=== PATIENT | male | born 1965 | race Caucasian/White ===

== ENCOUNTER 2018-07-13 23:38 | Inpatient (IN) ==
[2018-07-14] MEDS ORDERED: PIPERACILL/TAZOBAC CONSULT ACTIVE PRN ×2 (00:08→05:32)
[2018-07-14] MEDS ORDERED: PIPERACILLIN/TAZOBACTAM 4.5 GM/120 ML BAG IV ONE (00:08)
[2018-07-14] MEDS ORDERED: VANCOMYCIN HCL 2,750 MG in SODIUM CHLORIDE 0.9% 500 ML IV ONE (00:08)
[2018-07-14] MEDS ORDERED: SODIUM CHLORIDE 0.9% 1000ML 1,000 ML IV ONE ×2 (00:08→00:35)
[2018-07-14] MEDS ORDERED: VANCOMYCIN CONSULT ACTIVE PRN ×2 (00:08→05:32)
[2018-07-14 00:32] LABS: Albumin Level 2.6 gm/dl (3.4-5.0); BUN Creatinine Ratio 18.7 (10-20); Calcium 8.5 mg/dl (8.5-10.1); Creatinine Clr Calc Pharmacy 72.5 ml/min; Est GFR (African American) 51.5; Est GFR (Non-African American) 44.4; Potassium 3.7 mmol/L (3.5-5.1)
[2018-07-14 00:35] LABS: Albumin Globulin Ratio 0.6 (0.9-2); Bilirubin,Total 1.5 mg/dl (0.2-1); Globulin 4.1 gm/dl (2.5-4.0); Total Protein 6.7 gm/dl (6.4-8.2)
[2018-07-14 00:38] LABS: INR 1.3 (0.9-1.1); Partial Thromboplastin Time 26.2 Seconds (21.0-31.0); Prothrombin Time 12.8 Seconds (9.0-12.0)
[2018-07-14 00:42] LABS: Hematocrit (blood only) 48.2 % (42-52); Hemoglobin 16.3 g/dL (14.0-18.0); Mean Corpuscular Hgb Conc 33.8 g/dL (32-36); Mean Platelet Volume 11.8 fL (7.4-10.4); Platelet Count 240 K/uL (130-400); RDW Coefficient of Variation 14.2 % (11.5-14.5); RDW Standard Deviation 45.7 fL (36.4-46.3); Red Blood Count 5.48 M/uL (4.7-6.1); White Blood Count 28.89 K/uL (4.8-10.8)
[2018-07-14 00:44] LABS: Basophils # (auto) 0.02 K/uL (0-0.2); Basophils % (auto) 0.1 %; Echinocytes 1+; Immature Granulocytes % (auto) 0.7 %; Lymphocytes # (auto) 0.82 K/uL (1.2-3.4); Lymphocytes % (auto) 2.8 %; Monocytes # (auto) 1.37 K/uL (0.11-0.59); Monocytes % (auto) 4.7 %; Neutrophils # (auto) 26.48 K/uL (1.4-6.5); Neutrophils % (auto) 91.7 %; Polychromasia 1+
--- NOTE | 2018-07-14 01:09 | Emergency Department Note ---
History of Present Illness General Chief complaint: Fall Stated complaint: FALL/LEG IS SWOLLEN History of Present Illness Maximum Pain Intensity: 6 This 53-year-old presents to the ER complaining of left leg pain and swelling Location: Left leg Quality: Throbbing Severity: Moderate Duration: Past week Timing: Started a week ago Context: Patient could not get off the ground and summoned EMS Modifying factors: better with nothing; worse with activity Patient states a few weeks ago he got an abrasion to his knee. Tetanus is current. Patient states since then his leg is gotten progressive more red and swollen. Patient states he has no active medical problems. Patient denies chest pain, dyspnea, fevers, cough, congestion, abdominal pain, back pain, testicular penile pain. No IV drug abuse. Home Medications Home Medications Medication Instructions Recorded Confirmed Type No Known Home Medications 07/14/18 07/14/18 History Allergies Allergy/AdvReac Type Severity Reaction Status Date / Time No Known Allergies Allergy Unverified 07/14/18 02:22 Past Med/Surg History Medical History No acute medical problems Social History Feels Safe at Home: Yes Smoking Status: Never smoker Review of Systems All systems reviewed & are unremarkable except as noted in HPI & below Physical Exam Vital Signs Vital Signs - 24 hr 07/13/18 23:44 07/13/18 23:46 07/13/18 23:59 Temperature 37.1 C Temperature Source Oral Sepsis Recent Fever Within 48 Hours No Sepsis Action Taken by Nursing No Action Required Pulse Rate 110 H 111 H 113 H Pulse Rate [Right Finger] Pulse Rate from SpO2 Sensor 112 H 111 H Pulse Rhythm Regular Pulse Strength Normal Respiratory Rate 29 H 22 22 Respiratory Effort / Characteristics Non-Labored Respiratory Depth Normal Respiratory Pattern Regular Blood Pressure 165/115 H 165/115 H Blood Pressure [Right Arm] Blood Pressure Mean 131 131 Blood Pressure Mean [Right Arm] Blood Pressure Position Lying Pulse Oximetry 98 97 98 Oxygen Delivery Method Room Air 07/14/18 00:00 07/14/18 00:15 07/14/18 00:30 Temperature Temperature Source Sepsis Recent Fever Within 48 Hours Sepsis Action Taken by Nursing Pulse Rate 110 H 113 H 104 H Pulse Rate [Right Finger] Pulse Rate from SpO2 Sensor 116 H 113 H 104 H Pulse Rhythm Pulse Strength Respiratory Rate 23 22 31 H Respiratory Effort / Characteristics Respiratory Depth Respiratory Pattern Blood Pressure Blood Pressure [Right Arm] Blood Pressure Mean Blood Pressure Mean [Right Arm] Blood Pressure Position Pulse Oximetry 97 96 95 Oxygen Delivery Method 07/14/18 00:36 07/14/18 00:37 07/14/18 01:13 Temperature Temperature Source Sepsis Recent Fever Within 48 Hours Sepsis Action Taken by Nursing Pulse Rate 106 H Pulse Rate [Right Finger] 106 H Pulse Rate from SpO2 Sensor 110 H Pulse Rhythm Pulse Strength Respiratory Rate 27 H 34 H Respiratory Effort / Characteristics Respiratory Depth Respiratory Pattern Blood Pressure 177/130 H 135/104 H Blood Pressure [Right Arm] 177/130 H Blood Pressure Mean 145 114 Blood Pressure Mean [Right Arm] 145 Blood Pressure Position Pulse Oximetry 95 97 Oxygen Delivery Method 07/14/18 01:14 07/14/18 01:15 07/14/18 01:49 Temperature Temperature Source Sepsis Recent Fever Within 48 Hours Sepsis Action Taken by Nursing Pulse Rate 101 H Pulse Rate [Right Finger] 107 H Pulse Rate from SpO2 Sensor 108 H 105 H Pulse Rhythm Pulse Strength Respiratory Rate 22 10 L Respiratory Effort / Characteristics Respiratory Depth Respiratory Pattern Blood Pressure 158/108 H Blood Pressure [Right Arm] 135/104 H Blood Pressure Mean 124 Blood Pressure Mean [Right Arm] 114 Blood Pressure Position Pulse Oximetry 98 96 Oxygen Delivery Method 07/14/18 01:51 07/14/18 02:00 07/14/18 02:01 Temperature Temperature Source Sepsis Recent Fever Within 48 Hours Sepsis Action Taken by Nursing Pulse Rate 99 H 106 H 109 H Pulse Rate [Right Finger] Pulse Rate from SpO2 Sensor 102 H 104 H 109 H Pulse Rhythm Pulse Strength Respiratory Rate 14 21 30 H Respiratory Effort / Characteristics Respiratory Depth Respiratory Pattern Blood Pressure 157/125 H 157/144 H Blood Pressure [Right Arm] Blood Pressure Mean 135 148 Blood Pressure Mean [Right Arm] Blood Pressure Position Pulse Oximetry 99 100 95 Oxygen Delivery Method 07/14/18 02:14 Temperature Temperature Source Sepsis Recent Fever Within 48 Hours Sepsis Action Taken by Nursing Pulse Rate Pulse Rate [Right Finger] 105 H Pulse Rate from SpO2 Sensor Pulse Rhythm Pulse Strength Respiratory Rate 22 Respiratory Effort / Characteristics Respiratory Depth Respiratory Pattern Blood Pressure Blood Pressure [Right Arm] 157/144 H Blood Pressure Mean Blood Pressure Mean [Right Arm] 148 Blood Pressure Position Pulse Oximetry 97 Oxygen Delivery Method VITALS: Vitals are noted on the nurse's note and reviewed by myself. Vital signs hypertensive. GENERAL: White male malodorous and unkempt, in no acute distress, nondiaphoretic, well-developed well-nourished. SKIN: Left leg groin and scrotum erythematous and edematous malodorous and concerning for infection. The rest of the skin was without rashes, erythema, edema, or bruising. There is no tenting of the skin. Capillary reflex less than 2 seconds. HEAD: Normocephalic atraumatic. EARS: External auditory canals clear, tympanic membranes pearly álvarez without erythema or effusion bilaterally. EYES: Pupils equal round and reactive to light and accommodation. Conjunctivae without injection, sclerae without icterus. Extraocular movements intact. NOSE: Patent, turbinates without inflammation or discharge. No sinus tenderness. MOUTH: Mucous membranes mildly dry. Pharynx without erythema or exudate. Uvula midline. Airway patent. Tongue does not deviate. NECK: Supple without nuchal rigidity. No lymphadenopathy. No thyromegaly. Cervical spine is nontender. No JVD. HEART: Regular rate and rhythm LUNGS: Clear to auscultation bilaterally without wheezes, rales or rhonchi. No retractions or accessory muscle use. ABDOMEN: Positive bowel sounds x 4. Normal tympanic percussion. Soft, protuberant, obese, nontender, without masses or organomegaly. De La Vega sign negative. No guarding or rebound tenderness. No CVA tenderness exam: Scrotum and groin erythematous and edematous, no perineum infection. Inguinal lymph nodes enlarged. Flat Sorter Processor present. MUSCULOSKELETAL: No muscle atrophy noted. Left leg erythematous and edematous concerning for infection for the entire leg. Pedal pulses +2 equal and present bilaterally. Sensation is intact. NEURO: Patient was alert and oriented to person place and time. Normal sensation to light and sharp touch. No focal neurological deficits. Course Administered Medications Ioversol (Optiray 320 100ml) 125 ml IV ONCE PRN PRN Reason: Interaction Checking Stop: 07/18/18 01:28 Last Admin: 07/14/18 01:30 Dose: 120 ml Documented by: [id number] Discontinued Medications Piperacillin Sod/Tazobactam Sod (Zosyn) 4.5 gm in 120 mls @ 240 mls/hr IV NOW ONE Stop: 07/14/18 00:37 Last Infusion: 07/14/18 01:15 Dose: 0 mls/hr Documented by: [id number] Admin: 07/14/18 00:17 Dose: 240 mls/hr Documented by: [id number] Sodium Chloride (Nss 1000ml) 1,000 mls @ 999 mls/hr IV .Q1H1M ONE Stop: 07/14/18 01:08 Last Infusion: 07/14/18 01:45 Dose: 0 mls/hr Documented by: [id number] Admin: 07/14/18 00:20 Dose: 999 mls/hr Documented by: [id number] Vancomycin HCl 2,750 mg/ (Sodium Chloride) 555 mls @ 200 mls/hr IV NOW ONE Stop: 07/14/18 02:54 Last Admin: 07/14/18 00:35 Dose: 200 mls/hr Documented by: [id number] Sodium Chloride (Nss 1000ml) 1,000 mls @ 999 mls/hr IV .Q1H1M ONE Stop: 07/14/18 01:35 Last Admin: 07/14/18 01:07 Dose: 999 mls/hr Documented by: [id number] Clindamycin Phosphate 900 mg/ (Dextrose) 56 mls @ 100 mls/hr IV NOW ONE Stop: 07/14/18 02:27 Last Admin: 07/14/18 02:13 Dose: 100 mls/hr Documented by: [id number] Medical Decision Making Medical Records Attestation: I reviewed the patient's medical records. Home Medications Current Medication List: was personally reviewed by me Laboratory Data Result diagrams: 07/13/18 23:53 07/13/18 23:53 Lab Results 07/13/18 07/13/18 07/13/18 Range/Units 23:53 23:53 23:53 WBC 28.89 H (4.8-10.8) K/uL RBC 5.48 (4.7-6.1) M/uL Hgb 16.3 (14.0-18.0) g/dL Hct 48.2 (42-52) % MCV 88.0 (80-100) fL MCH 29.7 (25-34) pg MCHC 33.8 (32-36) g/dL RDW Std Deviation 45.7 (36.4-46.3) fL RDW Coeff of Junior 14.2 (11.5-14.5) % Plt Count 240 (130-400) K/uL MPV 11.8 H (7.4-10.4) fL Immature Gran % (Auto) 0.7 % Neut % (Auto) 91.7 % Lymph % (Auto) 2.8 % Briscoe % (Auto) 4.7 % Eos % (Auto) 0.0 % Baso % (Auto) 0.1 % Immature Gran # (Auto) 0.20 H (0.00-0.02) K/uL Neut # (Auto) 26.48 H (1.4-6.5) K/uL Lymph # (Auto) 0.82 L (1.2-3.4) K/uL Briscoe # (Auto) 1.37 H (0.11-0.59) K/uL Eos # (Auto) 0.00 (0-0.5) K/uL Baso # (Auto) 0.02 (0-0.2) K/uL Polychromasia 1+ Echinocytes 1+ PT 12.8 H (9.0-12.0) Seconds INR 1.3 H (0.9-1.1) APTT 26.2 (21.0-31.0) Seconds PTT Ratio 1.0 Sodium 135 L (136-145) mmol/L Potassium 3.7 (3.5-5.1) mmol/L Chloride 99 (98-107) mmol/L Carbon Dioxide 24 (21-32) mmol/L Anion Gap 12.0 H (3-11) BUN 32 H (7-18) mg/dl Creatinine 1.71 H (0.6-1.4) mg/dl Est Cr Clr Drug Dosing 72.5 ml/min Est GFR ( Amer) 51.5 Est GFR (Non-Af Amer) 44.4 BUN/Creatinine Ratio 18.7 (10-20) Glucose 177 H (70-99) mg/dl POC Glucose (70-99) Lactate (0.4-2.0) mmol/L Calcium 8.5 (8.5-10.1) mg/dl Total Bilirubin 1.5 H (0.2-1) mg/dl AST 76 H (15-37) U/L ALT 112 H (12-78) U/L Alkaline Phosphatase 88 (45-117) U/L Total Creatine Kinase 276 (39-308) U/L Troponin I 0.124 H* (0-0.045) ng/ml Total Protein 6.7 (6.4-8.2) gm/dl Albumin 2.6 L (3.4-5.0) gm/dl Globulin 4.1 H (2.5-4.0) gm/dl Albumin/Globulin Ratio 0.6 L (0.9-2) 07/13/18 07/14/18 Range/Units 23:53 00:26 WBC (4.8-10.8) K/uL RBC (4.7-6.1) M/uL Hgb (14.0-18.0) g/dL Hct (42-52) % MCV (80-100) fL MCH (25-34) pg MCHC (32-36) g/dL RDW Std Deviation (36.4-46.3) fL RDW Coeff of Junior (11.5-14.5) % Plt Count (130-400) K/uL MPV (7.4-10.4) fL Immature Gran % (Auto) % Neut % (Auto) % Lymph % (Auto) % Briscoe % (Auto) % Eos % (Auto) % Baso % (Auto) % Immature Gran # (Auto) (0.00-0.02) K/uL Neut # (Auto) (1.4-6.5) K/uL Lymph # (Auto) (1.2-3.4) K/uL Briscoe # (Auto) (0.11-0.59) K/uL Eos # (Auto) (0-0.5) K/uL Baso # (Auto) (0-0.2) K/uL Polychromasia Echinocytes PT (9.0-12.0) Seconds INR (0.9-1.1) APTT (21.0-31.0) Seconds PTT Ratio Sodium (136-145) mmol/L Potassium (3.5-5.1) mmol/L Chloride (98-107) mmol/L Carbon Dioxide (21-32) mmol/L Anion Gap (3-11) BUN (7-18) mg/dl Creatinine (0.6-1.4) mg/dl Est Cr Clr Drug Dosing ml/min Est GFR ( Amer) Est GFR (Non-Af Amer) BUN/Creatinine Ratio (10-20) Glucose (70-99) mg/dl POC Glucose 153 H (70-99) Lactate 4.4 H* (0.4-2.0) mmol/L Calcium (8.5-10.1) mg/dl Total Bilirubin (0.2-1) mg/dl AST (15-37) U/L ALT (12-78) U/L Alkaline Phosphatase (45-117) U/L Total Creatine Kinase (39-308) U/L Troponin I (0-0.045) ng/ml Total Protein (6.4-8.2) gm/dl Albumin (3.4-5.0) gm/dl Globulin (2.5-4.0) gm/dl Albumin/Globulin Ratio (0.9-2) Imaging Data Attestation: I personally reviewed and interpreted this imaging study as follows: MDM Narrative Prior records/ancillary studies reviewed. Triage Nursing notes reviewed. Additional history obtained from EMS. The patient's history was concerning for leg pain and swelling. Differential diagnosis: Etiologies such as sepsis, UTI, pneumonia, metabolic, electrolyte abnormalities, cardiac sources, intracerebral event, toxicologic, neurologic, as well as others were entertained. Physical examination: As above. Pertinent findings were left leg infection. Vital signs reviewed and revealed tachycardic and hypertensive. ER treatment provided: IV fluid resuscitation with Normal saline solution, 2000 mL bolus. Blood and urine cultures Antibiotics: Zosyn, vancomycin On reassessment the patient vital signs improved. Diagnostics interpretation by me: ECG: Normal sinus, poor baseline, no acute ST-T wave changes. rate 105 Impression sinus tachycardia interpreted by myself I think arrhythmia is unlikely. EKG shows normal sinus rhythm with no interval abnormalities such as QT prolongation or WPW. There are no findings to suggest Brugada syndrome. Cardiac monitoring in the emergency department reveals no tachycardic or bradycardic dysrhythmia. Hypertrophic cardiomyopathy was considered but there are no clear historical elements pointing toward this. EKG is not suggestive. The QRS voltage is not extremely large and there are no suggestive Q waves. The labs revealed leukocytosis on CBC. Chemistry panel revealed elevated creatinine. LFTs revealed. Cardiac enzymes were elevated. Serum Lactate measurement was 4.4. Blood and urine cultures are pending. Imaging studies: Chest xray revealed no acute consolidation, pneumothorax or free air per my interpretation. CT PELVIS: Fluid along the scrotum and perineum. Correlate clinically for inflammatory/infectious process. Small foci of air at the tip of the penis, unclear significance. Gas-forming organism not excluded. Subcutaneous stranding/edema, more prominent on the left pelvis/lower extremity. Prominent left inguinal lymph nodes. Fluid in the small and large bowel, can be seen with enteritis or diarrheal disease. Scattered colonic diverticula. Small nodular density at the superior aspect of the bladder. Small fat-containing bilateral inguinal hernias. Radiologist: Vira Medrano M.D. Ultrasound negative for DVT. Consultation: A consultation was placed with the hospitalist. The case was discussed and diagnostics were reviewed. The patient was evaluated in the ER for further treatment. Exam and history seem consistent with sepsis most likely from the leg cellulitis and groin cellulitis. Troponin was elevated. High white count. Patient start on broad-spectrum antibiotics. Blood cultures ordered. Patient is agreeable treatment plan of admission. Impression & Plan Sepsis, Cellulitis of groin, Cellulitis of left leg Discharge Plan Visit Data Chief Complaint: Fall Stated Complaint: FALL/LEG IS SWOLLEN Other Complaint: Leg Injury/Pain ED Provider: Haider Wolff ED Midlevel Provider: Subha Fermin Discharge Problem: Sepsis, Cellulitis of groin, Cellulitis of left leg Patient Disposition: Being Evaluated by Hospitalist Condition: Fair Forms Stand Alone Forms: Hylete Prescriptions Prescriptions: No Action No Known Home Medications RF: 0 Referrals Referrals: PCP,NO [Primary Care Provider] - Discharge Problem: Sepsis Qualifiers: Sepsis type: sepsis due to unspecified organism Qualified Code(s): A41.9 - Sepsis, unspecified organism
[2018-07-14] MEDS ORDERED: IOVERSOL 100ml IV PRN (01:29)
[2018-07-14] MEDS ORDERED: CLINDAMYCIN 900 MG in DEXTROSE 5% 50 ML IV ONE (01:54)
[2018-07-14 02:09] LABS: Troponin I 0.124 ng/ml (0-0.045)
--- NOTE | 2018-07-14 03:50 | History & Physical Report ---
Date of Service July 14, 2018 Assessment & Plan (1) Cellulitis of groin: 53 y/o M who denies any known medical history although he admittedly has not visited an MDs office in quite some time. He presents with erythema and pain extending from his lower abdomen, through his groin BL, genitals and down his L leg. He states that this began as "jock itch" and he was applying cream to it at home. He could not confirm fevers. Initial evaluation in the ER demonstrated an extensive and concerning cellulitis of the aforementioned area. A CT of the pelvis revealed stranding and fluid along the scrotum and perineum consistent with cellulitis, and a focus of air at the tip of the penis of u nclear significance. Labs are notable for leukocytosis, lactic acidosis, elevated LFTs, hyperglycemia and VAUGHN. 1) Cellulitis of groin and L leg - no clear evidence of Fornier's or necrotizing fasciitis per radiology read. We did have urology and general surgery review this as well. The large involved area and pt's labs are of concern. He should be carefully monitored for any worsening or evidence of severe sepsis. Repeat imaging or transfer to a tertiary center should be considered if deterioration is apparent. The pt is placed on Vanc and Zosyn. IVF provided and a repeat lactic is pending. evaluation by surgery and/or urology to follow. 2) VAUGHN - IVF provided - repeat BMP pending 3) Hyperglycemia - A1C pending 4) LFT elevation - unclear significance - will repeat AM - consider additional workup if trending upward Full code - Heparin prophylaxis Total time for this admit including review of labs, meds, imaging, records - discussion with pt and ER attending - 44 min Present on Admission?: Yes History of Present Illness Chief Complaint: groin, L leg cellulitis Primary Care Provider: NO PCP 53 y/o M who denies any known medical history although he admittedly has not visited an MDs office in quite some time. He presents with erythema and pain extending from his lower abdomen, through his groin BL, genitals and down his L leg. He states that this began as "jock itch" and he was applying cream to it at home. He could not confirm fevers. Initial evaluation in the ER demonstrated an extensive and concerning cellulitis of the aforementioned area. A CT of the pelvis revealed stranding and fluid along the scrotum and perineum consistent with cellulitis, and a focus of air at the tip of the penis of unclear significance. Labs are notable for leukocytosis, lactic acidosis, elevated LFTs, hyperglycemia and VAUGHN. PMH: Denies any known medical or surgical history Social: Does not drink or smoke. Employed at [employer] Family: States his mother is in a [place] [facility] because she frequently loses her balance. No significant family history otherwise. Allergies Allergy/AdvReac Type Severity Reaction Status Date / Time No Known Allergies Allergy Unverified 07/14/18 02:22 Home Medications Home Medications Medication Instructions Recorded Confirmed Type No Known Home Medications 07/14/18 07/14/18 History Past Med/Surg History Medical History No acute medical problems Social History Feels Safe at Home: Yes Smoking Status: Never smoker Review of Systems Review of Systems: Gen: Denies fevers, night sweats, rigors, fatigue, malaise, weight loss/gain ENT: Denies congestion, throat pain, hearing loss Eyes: Denies acute visual changes CV: Denies CP, palpitations Pulmonary: Denies SOB, cough, wheezing GI: Denies N/V, diarrhea, constipation Neuro: Denies acute or unilateral weakness, acute gait impairment, headache or acute visual changes Musculoskeletal: Denies joint pain, inflammation Endocrine: Denies polydipsia, polyuria Skin: Extensive erythema over groin, L leg as above Physical Exam Physical Exam: General: Obese, unkempt, middle-aged male, AAO x 3, no distress ENT: No erythema or exudates, no thrush Eyes: JUAN, EOMI Head and neck: Normocephalic, atraumatic, No JVD, neck is supple. Chest/heart: Nontender, S1,2, RRR, no murmurs, no gallops Lungs: CTAB, no wheezing or crackles Abdomen: Nontender, nondistended, BS+ Neuro: AAO x 3, speech is clear, no unilateral weakness or loss of sensation, coordination intact Musculoskeletal: No muscle tenderness, FROM Skin: Cellulitis over L leg, groin BL, lower abdomen. Scab over distal lat L leg Extremities: No clubbing, cyanosis, edema Results & Data Vital Signs (Past 12 Hours) Vital Signs Temp Pulse Pulse Resp BP BP Pulse Ox 07/14/18 02:40 104 H 18 95 07/14/18 02:14 105 H 22 157/144 H 97 07/14/18 02:01 109 H 30 H 157/144 H 95 07/14/18 02:00 106 H 21 100 07/14/18 01:51 99 H 14 157/125 H 99 07/14/18 01:49 101 H 10 L 07/14/18 01:15 158/108 H 96 07/14/18 01:14 107 H 22 135/104 H 98 07/14/18 01:13 135/104 H 97 07/14/18 00:37 106 H 34 H 177/130 H 07/14/18 00:36 106 H 27 H 177/130 H 95 07/14/18 00:30 104 H 31 H 95 07/14/18 00:15 113 H 22 96 07/14/18 00:00 110 H 23 97 07/13/18 23:59 98.8 F 113 H 22 165/115 H 98 07/13/18 23:46 111 H 22 97 07/13/18 23:44 110 H 29 H 165/115 H 98
--- NOTE | 2018-07-14 05:04 | Emergency Department Note ---
ED Visit Note Physician Evaluation Note: I have personally evaluated and examined this patient. I agree with assessment and plan of Kimmy Fermin PA-C. Sepsis with left leg and groin/scrotal cellulitis. Lactic acid and WBC quite elevated. BP stable without hypotension. Urology on board and gen surg aware of patient. Breathing comfortably and t olerating fluid resus here. Reviewed with hospitalist and discussed ICU though they feel comfortable with patient going tele for now. Haider Wolff MD : Sepsis Qualifiers: Sepsis type: sepsis due to unspecified organism Qualified Code(s): A41.9 - Sepsis, unspecified organism
[2018-07-14] MEDS ORDERED: ZOLPIDEM TARTRATE 5 MG TAB PO PRN (05:32)
[2018-07-14] MEDS ORDERED: ALUMINUM/MAGNESIUM SUSP 30 ML UDC PO PRN (05:32)
[2018-07-14] MEDS ORDERED: ONDANSETRON INJ 2 MG/ML 2 ML VIAL IV PRN (05:32)
[2018-07-14] MEDS ORDERED: MAGNESIUM HYDROXIDE SUSP 30 ML UDC PO PRN (05:32)
[2018-07-14] MEDS ORDERED: POLYETHYLENE (MIRALAX) 17 GM PACK PO PRN (05:32)
--- NOTE | 2018-07-14 06:12 | XRay Report ---
XR chest 1V portable CLINICAL HISTORY: Sepsis dyspnea COMPARISON STUDY: 07/13/2018 FINDINGS: Stable cardiomegaly. Lungs are considered clear. Diaphragms are smooth. IMPRESSION: Stable cardiomegaly. Otherwise negative study. The above report was generated using voice recognition software. It may contain grammatical, syntax or spelling errors. Electronically signed by: Gabriel Florez M.D. 07/14/2018 6:09 AM
--- NOTE | 2018-07-14 06:36 | Ultrasound Report ---
US venous doppler LE LT HISTORY: 53 years-old Male pain/swelling acute pain and swelling of the left lower extremity COMPARISON: CT of the left lower leg of same day TECHNIQUE: Multiple real-time sonographic images of the left lower extremity deep venous structures w ere obtained assessing grayscale appearance, color and spectral flow FINDINGS: Moderate subcutaneous edema is noted. There is normal flow, compressibility, phasicity and augmentati on of the left lower extremity deep venous structures. IMPRESSION: No sonographic evidence of deep venous thrombosis. The above report was generated using voice recognition software. It may contain grammatical, syntax o r spelling errors. Electronically signed by: Raimundo Appiah M.D. 07/14/2018 6:35 AM
--- NOTE | 2018-07-14 06:53 | CT Scan Report ---
CT lower leg LT wo con HISTORY: 53 years-old Male infx, ? abscess acute pain and swelling of the left lower leg COMPARISON: Duplex venous Doppler study of same day TECHNIQUE: Multiple axial CT images of the left lower leg were obtained without the use of IV contras t. Coronal and sagittal reformatted images were obtained from the axial data set and were submitted f or review. A dose lowering technique was used consistent with the principals of ALARA. FINDINGS: IV contrast noted within the distal ureters and urinary bladder. No acute process of the imaged intra pelvic structures. Mildly enlarged left inguinal lymph nodes are seen measuring up to 2.1 x 1.7 cm. T here is diffuse body wall edema with moderate to extensive diffuse subcutaneous edema of the bilatera l lower extremities with areas of associated skin thickening. No drainable fluid collection or subcut aneous emphysema. No deep tissue air. No intramuscular collections identified. Small bilateral knee j oint effusions. Study is not tailored to assess the intrinsic ligaments and tendons. 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 There is no acute fracture or dislocation norma ntified. Suggestion of a healed remote fracture deformity about the fifth metatarsal. Degenerative ch anges are noted about the bilateral feet and ankles. IMPRESSION: 1. No acute fracture or dislocation. 2. Moderate to extensive diffuse subcutaneous edema of the bilateral lower extremities with associate d diffuse body wall edema of the pelvis. No drainable fluid collection. Differential considerations w ould include fluid overload/lymphedema, venous stasis or cellulitis changes. Correlate clinically. 3. No drainable fluid collection. 4. Left inguinal adenopathy, possibly reactive. 5. Small bilateral knee joint effusions. The above report was generated using voice recognition software. It may contain grammatical, syntax o r spelling errors. Electronically signed by: Raimundo Appiah M.D. 07/14/2018 6:52 AM
--- NOTE | 2018-07-14 07:03 | CT Scan Report ---
CT pelvis w/IV con only HISTORY: 53 years-old Male groin infx patient presents with acute soft tissue infection about the le ft inguinal distribution. COMPARISON: CT left lower leg of same day TECHNIQUE: Multiple axial CT images of the pelvis were obtained following the intravenous administrat ion of 120 mL Optiray 320 IV contrast. A dose lowering technique was used consistent with the princip als of CRAOLYN. FINDINGS: There is mild colonic diverticulosis without acute diverticulitis. Scattered fluid-filled loops of no ndilated small bowel throughout the pelvis are noted which may be physiologic. The appendix appears n ormal. Aorta and iliac vessels appear unremarkable. There is a 1.4 cm outpouching about the anterior bladder near the median umbilical ligament which may reflect a small diverticulum or urachal remnant. Prostate is unremarkable. Tiny fat filled inguinal hernias are noted. Enlarged left inguinal lymph nodes are seen measuring up to 2.3 x 1.7 cm. There is moderate subcutane ous edema about the upper thighs bilaterally, left greater than right. Mild generalized body wall faye ma about the imaged pelvis. There is no deep tissue air, subcutaneous emphysema or drainable fluid co llection identified. Focus of air at the tip of the penis incidentally noted. Bony structures demonstrate no acute fracture or dislocation. Mild degenerative changes about the elke ateral femoral acetabular joints. Facet arthrosis and spondylitic spurring of the imaged lumbar spine . Moderate to severe intervertebral disc space narrowing at L5-S1. IMPRESSION: 1. No acute intrapelvic abnormality identified. 2. Mild body wall edema with moderate subcutaneous edema about the upper thighs bilaterally, left gre ater than right. No associated drainable fluid collection. 3. Mild left inguinal adenopathy, possibly reactive. 4. Mild colonic diverticulosis without acute diverticulitis. The above report was generated using voice recognition software. It may contain grammatical, syntax o r spelling errors. Electronically signed by: Raimundo Appiah M.D. 07/14/2018 7:02 AM
[2018-07-14] MEDS ORDERED: PERFLUTREN LIPID MICROSPHERE (DEFINITY) IV ONE (07:52)
--- NOTE | 2018-07-14 08:03 | Pharmacy Report ---
Pharmacy Abx Initial Consult - Date of Service July 14, 2018 - Pharmacy Dosing Scope Date of Consult: 07/14/18 Consultation requested by: Dr. Reese Pharmacy is consulted to initiate Vancomycin and Zosyn IV dosing therapy, order appropriate labs and adjust drug dose/frequency. - Subjective The patient is a 53 year old M admitted on 07/14/18 03:27. - Objective Height: 6 ft 2 in Weight: 145 kg Vital Signs (Past 12hrs): Vital Signs Temp Pulse Pulse Resp BP BP Pulse Ox 07/14/18 05:35 36.5 C 109 H 24 150/99 H 95 07/14/18 04:42 36.5 C 109 H 24 156/99 H 96 07/14/18 04:23 100 H 20 165/109 H 94 07/14/18 04:05 100 H 16 165/110 H 95 07/14/18 02:40 104 H 18 95 07/14/18 02:14 105 H 22 157/144 H 97 07/14/18 02:01 109 H 30 H 157/144 H 95 07/14/18 02:00 106 H 21 100 07/14/18 01:51 99 H 14 157/125 H 99 07/14/18 01:49 101 H 10 L 07/14/18 01:15 158/108 H 96 07/14/18 01:14 107 H 22 135/104 H 98 07/14/18 01:13 135/104 H 97 07/14/18 00:37 106 H 34 H 177/130 H 07/14/18 00:36 106 H 27 H 177/130 H 95 07/14/18 00:30 104 H 31 H 95 07/14/18 00:15 113 H 22 96 07/14/18 00:00 110 H 23 97 07/13/18 23:59 37.1 C 113 H 22 165/115 H 98 07/13/18 23:46 111 H 22 97 07/13/18 23:44 110 H 29 H 165/115 H 98 Lab Results (24hrs): Laboratory Tests (24 Hours) 07/13/18 07/13/18 23:53 23:53 WBC 28.89 H Neut # (Auto) 26.48 H Creatinine 1.71 H Est Cr Clr Drug Dosing 72.5 Total Creatine Kinase 276 Micro Results: 07/14/18 00:12 Blood Culture - Pending Blood 07/13/18 23:53 Blood Culture - Pending Blood - Risk Factors for Resistance * No risk factors noted - Assessment & Plan Assessment 53 year old M receiving vancomycin and Zosyn for empiric treatment of cellulitis of left lower extremity and groin. Plan Vancomycin IV * Estimated PK Parameters: Vd 0.6 L/kg, Gerson 0.06 hr-1, t1/2 12 hr * Loading dose: 2750 mg (19.7 mg/kg) * Maintenance dose: 1750 mg IV (12 mg/kg) every 14 hours * Will target trough of 15-20 for this patient * Cellulitis with elevated lactate (4.4 -> 2.9) and leukocytosis (29) * Trough/Random level ordered for 07/16/18 before the 5th dose * A less than traditional dose has been selected due to likelihood of drug accumulation in obese patient * Will reassess renal function with follow-up labs today 07/14 and adjust dose as necessary Piperacillin/tazobactam * 4.5 g bolus administered over 30 minutes, then 4.5 g IV extended infusion every 8 hours for CrCl greater than 20 mL/min * Aggressive dosing selected due BMI 35 or more. Blood cultures x 2 pending. Broad spectrum antibiotic therapy appropriate at this time. Pharmacy will continue to follow and will adjust dose/frequency as necessary. Thank you.
[2018-07-14] MEDS: HEPARIN SOD 5,000 UNIT/0.5 ML VIAL SQ SCH ×3 (08:24→20:58)
[2018-07-14] MEDS: LACTATED RINGER'S 1,000 ML IV SCH ×2 (08:24→19:10)
[2018-07-14] MEDS: PIPERACILLIN/TAZOBACTAM 4.5 GM in DEXTROSE 5% 100 ML IV SCH ×3 (08:24→23:39)
[2018-07-14] MEDS: NYSTATIN POWDER 15GM BTL EXT SCH ×2 (08:29→20:58)
[2018-07-14 10:19] LABS: Albumin Level 2.4 gm/dl (3.4-5.0); BUN Creatinine Ratio 18.7 (10-20); Bilirubin Direct 0.6 mg/dl (0-0.2); Calcium 8.6 mg/dl (8.5-10.1); Est GFR (African American) 60.8; Est GFR (Non-African American) 52.5; Magnesium 2.1 mg/dl (1.8-2.4); Potassium 3.4 mmol/L (3.5-5.1)
[2018-07-14 10:26] LABS: Bilirubin,Total 1.3 mg/dl (0.2-1); Total Protein 6.1 gm/dl (6.4-8.2); Troponin I 0.134 ng/ml (0-0.045)
[2018-07-14 10:34] LABS: Basophils # (auto) 0.03 K/uL (0-0.2); Basophils % (auto) 0.1 %; Echinocytes 1+; Giant Platelets 1+; Hematocrit (blood only) 46.2 % (42-52); Hemoglobin 15.8 g/dL (14.0-18.0); Immature Granulocytes # (auto) 0.82 K/uL (0.00-0.02); Immature Granulocytes % (auto) 3.3 %; Lymphocytes # (auto) 0.47 K/uL (1.2-3.4); Lymphocytes % (auto) 1.9 %; Mean Corpuscular Hgb Conc 34.2 g/dL (32-36); Mean Corpuscular Volume 86.5 fL (80-100); Mean Platelet Volume 11.5 fL (7.4-10.4); Monocytes # (auto) 1.69 K/uL (0.11-0.59); Monocytes % (auto) 6.7 %; Neutrophils # (auto) 22.15 K/uL (1.4-6.5); Platelet Count 225 K/uL (130-400); Platelet Estimate Normal (Normal); RDW Coefficient of Variation 14.3 % (11.5-14.5); RDW Standard Deviation 44.8 fL (36.4-46.3); Red Blood Count 5.34 M/uL (4.7-6.1); White Blood Count 25.16 K/uL (4.8-10.8)
[2018-07-14] MEDS ORDERED: POTASSIUM CHLORIDE / WTR 10 MEQ/100 ML PLCT IV SCH (10:45)
[2018-07-14 11:01] LABS: Estimated Average Glucose 169 mg/dl; Hemoglobin A1C 7.5 % (4.5-5.6)
--- NOTE | 2018-07-14 11:34 | Cardiology Consultation ---
Date of Consultation July 14, 2018 Assessment & Plan (1) Cardiomyopathy: Due to an elevated troponin the patient did undergo echocardiography this morning which demonstrated severely reduced LV systolic function. There were not regional wall motion abnormalities but rather global hypokinesis. This is more suggestive of a nonischemic etiology. In his demographic coronary artery disease would still be the most likely cause of his LV dysfunction, but given the global nature of the hypokinesis in the absence of angina with activity I think this is less likely. He appears to be well compensated. He was lying flat for my examination, his lungs were clear and he has not had a history of orthopnea. Chest x-ray obtained at the time of admission also did not demonstrate evidence of pulmonary vascular congestion. The chronicity of this dysfunction is unclear. I suspect this is longstanding in nature. He does not appear to have an history of alcohol abuse. He does have a history of hypertension. This could be related to an infiltrative process such as sarcoidosis or possibly amyloid, although these things are less common. He does not appear to have a family history of heart disease which makes it hereditary form of cardiomyopathy less likely. It is very possible that this represents an idiopathic cardiomyopathy. In the immediate term we will start carvedilol. He is already on Jaya inhibition as an outpatient. He is not appear to require diuretic currently and in fact may be slightly dehydrated. His main issue at this time is his lower extremity and groin cellulitis. He likely has an element of sepsis given his leukocytosis and history of chills. We will need to monitor his hemodynamics closely. We will need to be careful administering significant amounts of volume given his now obvious cardiomyopathy. Present on Admission?: Yes (2) Elevated troponin: The initial result was only mildly elevated. I do not believe this is related to renal insufficiency but more likely the cardiomyopathy now identified. I doubt that he had a recent acute coronary syndrome. I do not believe he is suffering from an acute coronary syndrome currently. At some point he will need evaluation of his coronary disease given the LV dysfunction. However, I think this can be deferred until his clinical condition with respect to his cellulitis improves. Present on Admission?: Yes (3) Polymorphic ventricular tachycardia: He appears to have had an episode of polymorphic ventricular tachycardia this morning. He was not symptomatic but was lying in bed. He does not give a good history for frequent episodes of arrhythmia. There is some debate in the medical record about the event precipitating his evaluation, but he was very adamant that he did not fall or suffer loss of consciousness. We will measure another QTC on a repeat EKG, but the initial EKGs demonstrated normal intervals. His magnesium was normal at the time of admission but I think supplemental magnesium will be helpful. We will start him on a beta-elsa. We will need to avoid drugs which are likely to precipitate VT or prolongation of the QT interval. None of the current medicines appear to be a concern in this respect. This episode alone does not represent an indication for an ICD. Present on Admission?: No History of Present Illness Reason for Consultation: Elevated troponin Requesting Physician: Orin Attending Physician: Phil Knox, History of Present Illness The patient is a 53-year-old gentleman without a known history of cardiac disease presented to [facility] with symptoms jock itch". It seems he has developed a rash in the groin area and has been using topical antifungal powder. However, the rash has been progressive in nature and now involves the left leg as well. He has also had some swelling in the left foot. Patient attempted to get out of bed yesterday but due to the swelling in the left leg he reported rolling out of bed and falling onto the floor. EMS was notified of the patient was brought to [facility] for evaluation. Patient stated that he did not have dizziness, lightheadedness or any loss of consciousness during this episode. In the emergency room cardiac biomarkers were noted to be elevated. Unclear what prompted the evaluation of his cardiac biomarkers, but this also led to an echocardiogram this morning which demonstrated reduced LV systolic function. Patient states that his activity is limited. 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 However, he does have an element of dyspnea with some activity. He reports occasional dizziness but no presyncopal symptoms. He cannot recall any episodes of actual syncope. He did not endorse symptoms of chest discomfort either at rest or with activity. He did not report frequent palpitations. He did not report symptoms of orthopnea or paroxysmal nocturnal dyspnea. 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 He did have subjective chills prior to admission. Physical Exam Physical Exam: The patient is alert and oriented. Mood and affect appeared normal. He answered all questions appropriately. HEENT: Pupils are equal and reactive to light and accommodation. Extraocular movements are intact. The sclerae are anicteric. Dry mucous membranes Neuro: Cranial nerves intact Neck: Patient's neck is supple. He has palpable carotid pulses bilaterally without bruits on auscultation. There is no evidence of jugular venous distention. The thyroid is not enlarged. Lungs: Clear to auscultation bilaterally. He has good air movement without use of accessory muscles. No rales wheezes or rhonchi. Cardiac: Heart demonstrates a rhythm. Normal S1 and S2. No murmurs on examination. Pulses: The patient has palpable radial pulses bilaterally that are equal in intensity Extremities: There was no evidence of hypoperfusion. There is no cyanosis or clubbing of the hands. The groin and left lower extremity has a erythematous rash. There is swelling in the groin and the left lower extremity. Skin: I did not appreciate any rashes elsewhere. Results & Data Vital Signs (Past 12 Hours) Vital Signs Temp Pulse Pulse Resp BP BP Pulse Ox 07/14/18 08:15 36.6 C 104 H 22 111/79 98 07/14/18 05:35 36.5 C 109 H 24 150/99 H 95 07/14/18 04:42 36.5 C 109 H 24 156/99 H 96 07/14/18 04:23 100 H 20 165/109 H 94 07/14/18 04:05 100 H 16 165/110 H 95 07/14/18 02:40 104 H 18 95 04/24/19 02:14 105 H 22 157/144 H 97 07/14/18 02:01 109 H 30 H 157/144 H 95 07/14/18 02:00 106 H 21 100 07/14/18 01:51 99 H 14 157/125 H 99 07/14/18 01:49 101 H 10 L 07/14/18 01:15 158/108 H 96 07/14/18 01:14 107 H 22 135/104 H 98 07/14/18 01:13 135/104 H 97 07/14/18 00:37 106 H 34 H 177/130 H 07/14/18 00:36 106 H 27 H 177/130 H 95 07/14/18 00:30 104 H 31 H 95 07/14/18 00:15 113 H 22 96 07/14/18 00:00 110 H 23 97 07/13/18 23:59 37.1 C 113 H 22 165/115 H 98 07/13/18 23:46 111 H 22 97 07/13/18 23:44 110 H 29 H 165/115 H 98 Laboratory Results Abnormal Lab Results 07/13/18 07/13/18 07/13/18 23:53 23:53 23:53 WBC 28.89 H RBC 5.48 Hgb 16.3 Hct 48.2 MCV 88.0 MCH 29.7 MCHC 33.8 RDW Std Deviation 45.7 RDW Coeff of Junior 14.2 Plt Count 240 MPV 11.8 H Immature Gran % (Auto) 0.7 Neut % (Auto) 91.7 Lymph % (Auto) 2.8 Sterling % (Auto) 4.7 Eos % (Auto) 0.0 Baso % (Auto) 0.1 Immature Gran # (Auto) 0.20 H Neut # (Auto) 26.48 H Lymph # (Auto) 0.82 L Sterling # (Auto) 1.37 H Eos # (Auto) 0.00 Baso # (Auto) 0.02 Platelet Estimate Giant Platelets Polychromasia 1+ Echinocytes 1+ PT 12.8 H INR 1.3 H APTT 26.2 PTT Ratio 1.0 Sodium 135 L Potassium 3.7 Chloride 99 Carbon Dioxide 24 Anion Gap 12.0 H BUN 32 H Creatinine 1.71 H Est Cr Clr Drug Dosing 72.5 Est GFR ( Amer) 51.5 Est GFR (Non-Af Amer) 44.4 BUN/Creatinine Ratio 18.7 Glucose 177 H POC Glucose Estimat Average Glucose Hemoglobin A1c Lactate Calcium 8.5 Magnesium Total Bilirubin 1.5 H Direct Bilirubin AST 76 H ALT 112 H Alkaline Phosphatase 88 Total Creatine Kinase 276 Troponin I 0.124 H* Total Protein 6.7 Albumin 2.6 L Globulin 4.1 H Albumin/Globulin Ratio 0.6 L 07/13/18 07/14/18 07/14/18 23:53 00:26 06:03 WBC RBC Hgb Hct MCV MCH MCHC RDW Std Deviation RDW Coeff of Junior Plt Count MPV Immature Gran % (Auto) Neut % (Auto) Lymph % (Auto) Sterling % (Auto) Eos % (Auto) Baso % (Auto) Immature Gran # (Auto) Neut # (Auto) Lymph # (Auto) Sterling # (Auto) Eos # (Auto) Baso # (Auto) Platelet Estimate Giant Platelets Polychromasia Echinocytes PT INR APTT PTT Ratio Sodium Potassium Chloride Carbon Dioxide Anion Gap BUN Creatinine Est Cr Clr Drug Dosing Est GFR ( Amer) Est GFR (Non-Af Amer) BUN/Creatinine Ratio Glucose POC Glucose 153 H Estimat Average Glucose Hemoglobin A1c Lactate 4.4 H* 2.9 H* Calcium Magnesium Total Bilirubin Direct Bilirubin AST ALT Alkaline Phosphatase Total Creatine Kinase Troponin I Total Protein Albumin Globulin Albumin/Globulin Ratio 07/14/18 07/14/18 07/14/18 06:10 09:26 09:26 WBC 25.16 H RBC 5.34 Hgb 15.8 Hct 46.2 MCV 86.5 MCH 29.6 MCHC 34.2 RDW Std Deviation 44.8 RDW Coeff of Junior 14.3 Plt Count 225 MPV 11.5 H Immature Gran % (Auto) 3.3 Neut % (Auto) 88.0 Lymph % (Auto) 1.9 Sterling % (Auto) 6.7 Eos % (Auto) 0.0 Baso % (Auto) 0.1 Immature Gran # (Auto) 0.82 H Neut # (Auto) 22.15 H Lymph # (Auto) 0.47 L Sterling # (Auto) 1.69 H Eos # (Auto) 0.00 Baso # (Auto) 0.03 Platelet Estimate Normal Giant Platelets 1+ Polychromasia Echinocytes 1+ PT INR APTT PTT Ratio Sodium 136 Potassium 3.4 L Chloride 100 Carbon Dioxide 25 Anion Gap 11.0 BUN 28 H Creatinine 1.49 H Est Cr Clr Drug Dosing 86.0 Est GFR ( Amer) 60.8 Est GFR (Non-Af Amer) 52.5 BUN/Creatinine Ratio 18.7 Glucose 153 H POC Glucose Estimat Average Glucose 169 Hemoglobin A1c 7.5 H Lactate Calcium 8.6 Magnesium 2.1 Total Bilirubin 1.3 H Direct Bilirubin 0.6 H AST 65 H ALT 97 H Alkaline Phosphatase 79 Total Creatine Kinase Troponin I 0.134 H* Total Protein 6.1 L Albumin 2.4 L Globulin Albumin/Globulin Ratio Diagnostic Findings Lower extremity duplex did not reveal any evidence of DVT. Chest x-ray obtained at the time of admission did not reveal any evidence of pulmonary edema. Echocardiogram performed today revealed severely reduced LV systolic function with global hypokinesis. No significant valvular heart disease. ECG Additional Comments: EKG demonstrated sinus tachycardia with nonspecific ST and T-wave changes. Normal QTC. Telemetry did demonstrate 1 episode polymorphic ventricular tachycardia lasting approximately 10 seconds.
[2018-07-14 11:39] LABS: Appearance Urine Clear (Clear); Bilirubin Urine Negative (Negative); Blood Urine 1+ (Negative); Color Urine Dark Yellow; Epithelial Cell Urine Auto >30 /lpf (0-5); Glucose Urine UA Trace (Negative); Ketones Urine Negative (Negative); Leukocyte Esterase Urine Negative (Negative); Nitrite Urine Negative (Negative); Protein Urine 2+ (Negative); Specific Gravity Urine 1.044 (1.000-1.030); Urobilinogen Urine Negative (Negative)
[2018-07-14] MEDS ORDERED: MAGNESIUM SULFATE / D5W 1 GM/100 ML BAG IV ONE (11:45)
[2018-07-14 12:18] LABS: Bacteria Urine Automated 1+ (Negative)
[2018-07-14] MEDS: CARVEDILOL 3.125 MG TAB PO SCH ×2 (12:27→20:58)
[2018-07-14] MEDS: VANCOMYCIN HCL 1,750 MG in SODIUM CHLORIDE 0.9% 500 ML IV SCH (12:28)
--- NOTE | 2018-07-14 15:11 | Ultrasound Report ---
Study: Arterial Doppler ultrasound HISTORY: Pain. Edema. FINDINGS: Study is restricted to the left leg. Triphasic waveforms are noted in the thigh. Monophasic waveforms are noted inferior to the knee. Velocities and waveforms are unremarkable. IMPRESSION: 1. Limited study restricted to the left leg. Velocities are unremarkable throughout. There are tripha sic waveforms throughout the left thigh with monophasic waveforms involving the peroneal and dorsalis pedis artery. 2. This limited study suggest potential significant arterial occlusive change proximal left lower leg involving peroneal and dorsalis pedis artery Electronically signed by: Gabriel Florez M.D. 07/14/2018 3:10 PM
--- NOTE | 2018-07-14 16:17 | Surgery Consultation ---
Date of Consultation July 14, 2018 Assessment & Plan (1) Cellulitis of groin: 53 year-old male who presented to emergency department with increasing redness of the groin down into the left lower extremity with swelling and pain. CT scan of abdomen and pelvis showed moderate subcutaneous edema of the upper thighs bilaterally , left greater than right however no drainable fluid collection. CT scan of left lower leg showing moderate to extensive diffuse subcutaneous edema of the bilateral lower extremities with associated diffuse body wall edema of the pelvis. No drainable fluid collection. Leukocytosis of 28K with lactic acid of 4.4 -- > 2.9 --> 1.8. Examination shows diffuse cellu litis of the bilateral groin into the left lower extremity and left foot. Good pedal pulse, posterior tibial, and popliteal with bedside doppler. On broad spectrum antibiotics. Plan: Recommend arterial doppler ultrasound of left lower extremity. Continue broad spectrum IV antibiotics: Zosyn and Vancomycin Continue IV fluids continue pain management as needed continue medical management follow labs avoid any creams to the groin, try to keep groin dry and clean Dr. Aden has seen and examined pt, agrees with above (2) Cellulitis of left leg: (3) Sepsis: Supervising Physician Co-Signing Physician Notes I have seen and evaluated the patient and reviewed the medical record. I agree with the documentation as provided in this note by Karla Mcclellan PA-C. I initially evaluated the patient and reviewed his chart this morning around 3:30 am. He has severe edema and erythema from bilateral groins, into scrotum, a nd down left leg all the way to the foot, with excoriations of bilateral inner thigh/groin, pitting edema of the legs, which are weeping, and a few associated blisters, the groin was moist and there was a severe foul odor; Left DP pulse had a positive Doppler signal but could not obtain signal of the PT and the popliteal signal was weak, no palpable drainable fluid collections, but these could be missed on exam due to pt body habitus and extreme amount of swelling. On presentation labs included: WBC 28.89, Na 135, and Lactate 4.4. CT abdomen/pelvis showed a few dots of air in the penis and diffuse anasarca but no air elsewhere consistent with nec fasc and no drainable fluid collections. Urology was consulted and did not feel this was Fornier's based on the air in the penis. I recommended close observation, monitoring for worsening erythema, deterioration of clinical status, and imaging of the LLE, which had to be completed without IV contrast due to recent contrast load. There were no signs of nec fasc on this imaging either. Lactate was trending down after fluid resuscitation and has now normalized. - Continue to treat as severe cellulitis. No current signs of nec fasc and no ab scesses. Please contact surgery if any change in exam or worsening clinical status - Obtain arterial duplex, if any abnormalities recommend consulting Vascular Surgery - Continue broad spectrum abx. Agree with Zosyn and Vanco, if concern for nec fasc or other toxin producing bacteria would add Clindamycin as well. Consider ID consultation - Avoid any creams to the affect area or applying anything that would encourage moisture. Attempt to keep the area dry History of Present Illness Reason for Consultation: Cellulitis of groin and left lower extremity and foot Requesting Physician: Phil Knox Attending Physician: Phil Knox, DO History of Present Illness Saw is a 53-year-old gentleman who presented to [facility] last evening with symptoms of jock itch". He states he developed a rash in the groin area and has been using topical antifungal powder. However, the rash has been progressive in nature and now involves the left leg as well. He has also had some swelling in the left foot. Our services were consulted to rule out necrotizing fascitis. Emergency work-up included labs which showed leukocytosis of 28K. CT scan of abdomen and pelvis showed moderate subcutaneous edema of the upper thighs bilaterally , left greater than right however no drainable fluid collection. CT scan of left lower leg showing moderate to extensive diffuse subcutaneous edema of the bilateral lower extremities with associated diffuse body wall edema of the pelvis. No drainable fluid collection. Lactic acid of 4.4 -- > 2.9 --> 1.8. 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 Beliefs That Will Affect Care: None Current Living Situation: Parent Current Living Situation Comment: FATHER Other Information That Helps Us Care for You: No Feels Safe at Home: Yes Safety Concerns: Feels Safe At This Time Smoking Status: Never smoker Hx Alcohol Use: No Hx Substance Use: No Physical Exam Constitutional: + acute distress (mild, looks in pain) and + morbidly obese; not ill appearing Gastrointestinal (Abdomen): Inspection/Auscultation: abdomen normal to inspection; abdomen not distended Percussion/Palpation: abdomen soft; abdomen nontender, no guarding and abdomen not rigid Skin: Groin: erythema of the bilateral groin with wet nystatin cream present and excoriations. Edema spreading to the entire left lower extremity into the left foot with moderate edema. Good posterior tibial, doralis pedis, and popliteal pulses on venous doppler. Psychiatric: Orientation: alert and oriented x 3 Results & Data Vital Signs (Past 12 Hours) Vital Signs Temp Pulse Pulse Resp BP BP Pulse Ox 07/14/18 15:35 36.9 C 95 H 20 133/93 94 07/14/18 11:29 36.3 C L 102 H 24 154/103 H 96 07/14/18 08:15 36.6 C 104 H 22 111/79 98 07/14/18 05:35 36.5 C 109 H 24 150/99 H 95 07/14/18 04:42 36.5 C 109 H 24 156/99 H 96 07/14/18 04:23 100 H 20 165/109 H 94 Laboratory Results 07/14/18 07/14/18 07/14/18 Range/Units 14:07 11:15 09:26 WBC (4.8-10.8) K/uL RBC (4.7-6.1) M/uL Hgb (14.0-18.0) g/dL Hct (42-52) % MCV (80-100) fL MCH (25-34) pg MCHC (32-36) g/dL RDW Std Deviation (36.4-46.3) fL RDW Coeff of Junior (11.5-14.5) % Plt Count (130-400) K/uL MPV (7.4-10.4) fL Immature Gran % (Auto) % Neut % (Auto) % Lymph % (Auto) % [place] % (Auto) % Eos % (Auto) % Baso % (Auto) % Immature Gran # (Auto) (0.00-0.02) K/uL Neut # (Auto) (1.4-6.5) K/uL Lymph # (Auto) (1.2-3.4) K/uL [place] # (Auto) (0.11-0.59) K/uL Eos # (Auto) (0-0.5) K/uL Baso # (Auto) (0-0.2) K/uL Platelet Estimate (Normal) Giant Platelets Polychromasia Echinocytes PT (9.0-12.0) Seconds INR (0.9-1.1) APTT (21.0-31.0) Seconds PTT Ratio Sodium 136 (136-145) mmol/L Potassium 3.4 L (3.5-5.1) mmol/L Chloride 100 (98-107) mmol/L Carbon Dioxide 25 (21-32) mmol/L Anion Gap 11.0 (3-11) BUN 28 H (7-18) mg/dl Creatinine 1.49 H (0.6-1.4) mg/dl Est Cr Clr Drug Dosing 86.0 ml/min Est GFR ( Amer) 60.8 Est GFR (Non-Af Amer) 52.5 BUN/Creatinine Ratio 18.7 (10-20) Glucose 153 H (70-99) mg/dl POC Glucose (70-99) Estimat Average Glucose mg/dl Hemoglobin A1c (4.5-5.6) % Lactate 1.8 (0.4-2.0) mmol/L Calcium 8.6 (8.5-10.1) mg/dl Magnesium 2.1 (1.8-2.4) mg/dl Total Bilirubin 1.3 H (0.2-1) mg/dl Direct Bilirubin 0.6 H (0-0.2) mg/dl AST 65 H (15-37) U/L ALT 97 H (12-78) U/L Alkaline Phosphatase 79 (45-117) U/L Total Creatine Kinase (39-308) U/L Troponin I 0.134 H* (0-0.045) ng/ml Total Protein 6.1 L (6.4-8.2) gm/dl Albumin 2.4 L (3.4-5.0) gm/dl Globulin (2.5-4.0) gm/dl Albumin/Globulin Ratio (0.9-2) Urine Color Dark Yellow Urine Appearance Clear (Clear) Urine pH 6.0 (4.5-7.5) Ur Specific [place] 1.044 H (1.000-1.030) Urine Protein 2+ H (Negative) Urine Glucose (UA) Trace H (Negative) Urine Ketones Negative (Negative) Urine Blood 1+ H (Negative) Urine Nitrite Negative (Negative) Urine Bilirubin Negative (Negative) Urine Urobilinogen Negative (Negative) Ur Leukocyte Esterase Negative (Negative) Urine WBC (Auto) 1-5 (0-5) /hpf Urine RBC (Auto) 5-10 H (0-4) /hpf U Hyaline Cast (Auto) 1-5 (0-5) /lpf U Epithel Cells (Auto) >30 H (0-5) /lpf Urine Bacteria (Auto) 1+ H (Negative) Ur Renal Epithelial Cell Not Reportable 07/14/18 07/14/18 07/14/18 Range/Units 09:26 06:10 06:03 WBC 25.16 H (4.8-10.8) K/uL RBC 5.34 (4.7-6.1) M/uL Hgb 15.8 (14.0-18.0) g/dL Hct 46.2 (42-52) % MCV 86.5 (80-100) fL MCH 29.6 (25-34) pg MCHC 34.2 (32-36) g/dL RDW Std Deviation 44.8 (36.4-46.3) fL RDW Coeff of Junior 14.3 (11.5-14.5) % Plt Count 225 (130-400) K/uL MPV 11.5 H (7.4-10.4) fL Immature Gran % (Auto) 3.3 % Neut % (Auto) 88.0 % Lymph % (Auto) 1.9 % [place] % (Auto) 6.7 % Eos % (Auto) 0.0 % Baso % (Auto) 0.1 % Immature Gran # (Auto) 0.82 H (0.00-0.02) K/uL Neut # (Auto) 22.15 H (1.4-6.5) K/uL Lymph # (Auto) 0.47 L (1.2-3.4) K/uL [place] # (Auto) 1.69 H (0.11-0.59) K/uL Eos # (Auto) 0.00 (0-0.5) K/uL Baso # (Auto) 0.03 (0-0.2) K/uL Platelet Estimate Normal (Normal) Giant Platelets 1+ Polychromasia Echinocytes 1+ PT (9.0-12.0) Seconds INR (0.9-1.1) APTT (21.0-31.0) Seconds PTT Ratio Sodium (136-145) mmol/L Potassium (3.5-5.1) mmol/L Chloride (98-107) mmol/L Carbon Dioxide (21-32) mmol/L Anion Gap (3-11) BUN (7-18) mg/dl Creatinine (0.6-1.4) mg/dl Est Cr Clr Drug Dosing ml/min Est GFR ( Amer) Est GFR (Non-Af Amer) BUN/Creatinine Ratio (10-20) Glucose (70-99) mg/dl POC Glucose (70-99) Estimat Average Glucose 169 mg/dl Hemoglobin A1c 7.5 H (4.5-5.6) % Lactate 2.9 H* (0.4-2.0) mmol/L Calcium (8.5-10.1) mg/dl Magnesium (1.8-2.4) mg/dl Total Bilirubin (0.2-1) mg/dl Direct Bilirubin (0-0.2) mg/dl AST (15-37) U/L ALT (12-78) U/L Alkaline Phosphatase (45-117) U/L Total Creatine Kinase (39-308) U/L Troponin I (0-0.045) ng/ml Total Protein (6.4-8.2) gm/dl Albumin (3.4-5.0) gm/dl Globulin (2.5-4.0) gm/dl Albumin/Globulin Ratio (0.9-2) Urine Color Urine Appearance (Clear) Urine pH (4.5-7.5) Ur Specific [place] (1.000-1.030) Urine Protein (Negative) Urine Glucose (UA) (Negative) Urine Ketones (Negative) Urine Blood (Negative) Urine Nitrite (Negative) Urine Bilirubin (Negative) Urine Urobilinogen (Negative) Ur Leukocyte Esterase (Negative) Urine WBC (Auto) (0-5) /hpf Urine RBC (Auto) (0-4) /hpf U Hyaline Cast (Auto) (0-5) /lpf U Epithel Cells (Auto) (0-5) /lpf Urine Bacteria (Auto) (Negative) Ur Renal Epithelial Cell 07/14/18 07/13/18 07/13/18 Range/Units 00:26 23:53 23:53 WBC (4.8-10.8) K/uL RBC (4.7-6.1) M/uL Hgb (14.0-18.0) g/dL Hct (42-52) % MCV (80-100) fL MCH (25-34) pg MCHC (32-36) g/dL RDW Std Deviation (36.4-46.3) fL RDW Coeff of Junior (11.5-14.5) % Plt Count (130-400) K/uL MPV (7.4-10.4) fL Immature Gran % (Auto) % Neut % (Auto) % Lymph % (Auto) % [place] % (Auto) % Eos % (Auto) % Baso % (Auto) % Immature Gran # (Auto) (0.00-0.02) K/uL Neut # (Auto) (1.4-6.5) K/uL Lymph # (Auto) (1.2-3.4) K/uL [place] # (Auto) (0.11-0.59) K/uL Eos # (Auto) (0-0.5) K/uL Baso # (Auto) (0-0.2) K/uL Platelet Estimate (Normal) Giant Platelets Polychromasia Echinocytes PT (9.0-12.0) Seconds INR (0.9-1.1) APTT (21.0-31.0) Seconds PTT Ratio Sodium 135 L (136-145) mmol/L Potassium 3.7 (3.5-5.1) mmol/L Chloride 99 (98-107) mmol/L Carbon Dioxide 24 (21-32) mmol/L Anion Gap 12.0 H (3-11) BUN 32 H (7-18) mg/dl Creatinine 1.71 H (0.6-1.4) mg/dl Est Cr Clr Drug Dosing 72.5 ml/min Est GFR ( Amer) 51.5 Est GFR (Non-Af Amer) 44.4 BUN/Creatinine Ratio 18.7 (10-20) Glucose 177 H (70-99) mg/dl POC Glucose 153 H (70-99) Estimat Average Glucose mg/dl Hemoglobin A1c (4.5-5.6) % Lactate 4.4 H* (0.4-2.0) mmol/L Calcium 8.5 (8.5-10.1) mg/dl Magnesium (1.8-2.4) mg/dl Total Bilirubin 1.5 H (0.2-1) mg/dl Direct Bilirubin (0-0.2) mg/dl AST 76 H (15-37) U/L ALT 112 H (12-78) U/L Alkaline Phosphatase 88 (45-117) U/L Total Creatine Kinase 276 (39-308) U/L Troponin I 0.124 H* (0-0.045) ng/ml Total Protein 6.7 (6.4-8.2) gm/dl Albumin 2.6 L (3.4-5.0) gm/dl Globulin 4.1 H (2.5-4.0) gm/dl Albumin/Globulin Ratio 0.6 L (0.9-2) Urine Color Urine Appearance (Clear) Urine pH (4.5-7.5) Ur Specific [place] (1.000-1.030) Urine Protein (Negative) Urine Glucose (UA) (Negative) Urine Ketones (Negative) Urine Blood (Negative) Urine Nitrite (Negative) Urine Bilirubin (Negative) Urine Urobilinogen (Negative) Ur Leukocyte Esterase (Negative) Urine WBC (Auto) (0-5) /hpf Urine RBC (Auto) (0-4) /hpf U Hyaline Cast (Auto) (0-5) /lpf U Epithel Cells (Auto) (0-5) /lpf Urine Bacteria (Auto) (Negative) Ur Renal Epithelial Cell 07/13/18 07/13/18 Range/Units 23:53 23:53 WBC 28.89 H (4.8-10.8) K/uL RBC 5.48 (4.7-6.1) M/uL Hgb 16.3 (14.0-18.0) g/dL Hct 48.2 (42-52) % MCV 88.0 (80-100) fL MCH 29.7 (25-34) pg MCHC 33.8 (32-36) g/dL RDW Std Deviation 45.7 (36.4-46.3) fL RDW Coeff of Junior 14.2 (11.5-14.5) % Plt Count 240 (130-400) K/uL MPV 11.8 H (7.4-10.4) fL Immature Gran % (Auto) 0.7 % Neut % (Auto) 91.7 % Lymph % (Auto) 2.8 % [place] % (Auto) 4.7 % Eos % (Auto) 0.0 % Baso % (Auto) 0.1 % Immature Gran # (Auto) 0.20 H (0.00-0.02) K/uL Neut # (Auto) 26.48 H (1.4-6.5) K/uL Lymph # (Auto) 0.82 L (1.2-3.4) K/uL [place] # (Auto) 1.37 H (0.11-0.59) K/uL Eos # (Auto) 0.00 (0-0.5) K/uL Baso # (Auto) 0.02 (0-0.2) K/uL Platelet Estimate (Normal) Giant Platelets Polychromasia 1+ Echinocytes 1+ PT 12.8 H (9.0-12.0) Seconds INR 1.3 H (0.9-1.1) APTT 26.2 (21.0-31.0) Seconds PTT Ratio 1.0 Sodium (136-145) mmol/L Potassium (3.5-5.1) mmol/L Chloride (98-107) mmol/L Carbon Dioxide (21-32) mmol/L Anion Gap (3-11) BUN (7-18) mg/dl Creatinine (0.6-1.4) mg/dl Est Cr Clr Drug Dosing ml/min Est GFR ( Amer) Est GFR (Non-Af Amer) BUN/Creatinine Ratio (10-20) Glucose (70-99) mg/dl POC Glucose (70-99) Estimat Average Glucose mg/dl Hemoglobin A1c (4.5-5.6) % Lactate (0.4-2.0) mmol/L Calcium (8.5-10.1) mg/dl Magnesium (1.8-2.4) mg/dl Total Bilirubin (0.2-1) mg/dl Direct Bilirubin (0-0.2) mg/dl AST (15-37) U/L ALT (12-78) U/L Alkaline Phosphatase (45-117) U/L Total Creatine Kinase (39-308) U/L Troponin I (0-0.045) ng/ml Total Protein (6.4-8.2) gm/dl Albumin (3.4-5.0) gm/dl Globulin (2.5-4.0) gm/dl Albumin/Globulin Ratio (0.9-2) Urine Color Urine Appearance (Clear) Urine pH (4.5-7.5) Ur Specific [place] (1.000-1.030) Urine Protein (Negative) Urine Glucose (UA) (Negative) Urine Ketones (Negative) Urine Blood (Negative) Urine Nitrite (Negative) Urine Bilirubin (Negative) Urine Urobilinogen (Negative) Ur Leukocyte Esterase (Negative) Urine WBC (Auto) (0-5) /hpf Urine RBC (Auto) (0-4) /hpf U Hyaline Cast (Auto) (0-5) /lpf U Epithel Cells (Auto) (0-5) /lpf Urine Bacteria (Auto) (Negative) Ur Renal Epithelial Cell Diagnostic Findings CT pelvis w/IV con only HISTORY: 53 years-old Male groin infx patient presents with acute soft tissue infection about the left inguinal distribution. COMPARISON: CT left lower leg of same day TECHNIQUE: Multiple axial CT images of the pelvis were obtained following the intravenous administration of 120 mL Optiray 320 IV contrast. A dose lowering technique was used consistent with the principals of CAROLYN. FINDINGS: There is mild colonic diverticulosis without acute diverticulitis. Scattered fluid-filled loops of nondilated small bowel throughout the pelvis are noted which may be physiologic. The appendix appears normal. Aorta and iliac vessels appear unremarkable. There is a 1.4 cm outpouching about the anterior bladder near the median umbilical ligament which may reflect a small diverticulum or urachal remnant. Prostate is unremarkable. Tiny fat filled inguinal hernias are noted. Enlarged left inguinal lymph nodes are seen measuring up to 2.3 x 1.7 cm. There is moderate subcutaneous edema about the upper thighs bilaterally, left greater than right. Mild generalized body wall edema about the imaged pelvis. There is no deep tissue air, subcutaneous emphysema or drainable fluid collection identified. Focus of air at the tip of the penis incidentally noted. Bony structures demonstrate no acute fracture or dislocation. Mild degenerative changes about the bilateral femoral acetabular joints. Facet arthrosis and spondylitic spurring of the imaged lumbar spine. Moderate to severe intervertebral disc space narrowing at L5-S1. IMPRESSION: 1. No acute intrapelvic abnormality identified. 2. Mild body wall edema with moderate subcutaneous edema about the upper thighs bilaterally, left greater than right. No associated drainable fluid collection. 3. Mild left inguinal adenopathy, possibly reactive. 4. Mild colonic diverticulosis without acute diverticulitis. CT lower leg LT wo con of HISTORY: 53 years-old Male infx, ? abscess acute pain and swelling of the left lower leg COMPARISON: Duplex venous Doppler study of same day TECHNIQUE: Multiple axial CT images of the left lower leg were obtained without the use of IV contrast. Coronal and sagittal reformatted images were obtained from the axial data set and were submitted for review. A dose lowering technique was used consistent with the principals of ALARA. FINDINGS: IV contrast noted within the distal ureters and urinary bladder. No acute process of the imaged intrapelvic structures. Mildly enlarged left inguinal lymph nodes are seen measuring up to 2.1 x 1.7 cm. There is diffuse body wall edema with moderate to extensive diffuse subcutaneous edema of the bilateral lower extremities with areas of associated skin thickening. No drainable fluid collection or subcutaneous emphysema. No deep tissue air. No intramuscular collections identified. Small bilateral knee joint effusions. Study is not tailored to assess the intrinsic ligaments and tendons. 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 There is no acute fracture or dislocation identified. Suggestion of a healed remote fracture deformity about the fifth metatarsal. Degenerative changes are noted about the bilateral feet and ankles. IMPRESSION: 1. No acute fracture or dislocation. 2. Moderate to extensive diffuse subcutaneous edema of the bilateral lower extremities with associated diffuse body wall edema of the pelvis. No drainable fluid collection. Differential considerations would include fluid o verload/lymphedema, venous stasis or cellulitis changes. Correlate clinically. 3. No drainable fluid collection. 4. Left inguinal adenopathy, possibly reactive. 5. Small bilateral knee joint effusions. (1) Sepsis Sepsis type: sepsis due to unspecified organism Qualified Code(s): A41.9 - Sepsis, unspecified organism
--- NOTE | 2018-07-14 19:13 | Family Medicine Progress Note ---
Date of Service July 14, 2018 Assessment & Plan (1) Sepsis: 53 y/o M who denies any known medical history presenting with sepsis in the setting of left groin/left leg cellulitis - tachycardic, tachypneic , afebrile with leukocytosis, lactate elevated on arrival but trending down - NO CT findings concerning for necrotizing fasciitis - Surgery consulted but given lack of fluid collection, recommended - Continue broad spectrum antibiotics (Vanc, Zosyn) - D/C'd IV fluids due to suspicion of fluid overload (2) Cellulitis of left leg: treat as above source of entry possible multiple ulcers vs suspected fungal infection of groin seen by Surgery, no evidence of fluid collection warranting surgical removal or indication for debridement ordered arterial doppler to rule out underlying arterial disease pulses were detectable with doppler at bedside (3) Cellulitis of groin: manage as above (4) Polymorphic ventricular tachycardia: 10 sec run of [place] x 1 Electrolytes checked and supplemented appopriately Continue to monitor daily metabolic panels Started on Coreg, MOnitor on telemetry (5) Cardiomyopathy: Echo report findings of severe non-ischemic cardiomyopathy with severely depressed LV function with global hypokinesis unclear etiology Cardiology suspects infiltrative process at play will continue to monitor, FLuids stopped as above, monitor fluid status daily (6) Elevated troponin: per cardiology, ACS unlikely likely due to advanced Cardiomyopathy as described above recheck Troponin to confirm trend downwards Supervising Physician Co-Signing Physician Notes Patient seen and examined with Dr. Sr. Agree with history, exam findings, assessment and plan with the following updates: In brief, 53 year old male with no known chronic medical issues admitted with cellulitis of the groin, elevated troponin, LFTs and Cr. He was last seen by a primary care physician approximately 2 years ago and did not identify any health issues at the time. On exam today, cellulitic area of the groin and scrotum are weepy, erythematous, and tender. Foul odor. 1.Cellulitis left groin/scrotal area. Sepsis. CT with fat stranding and fluid along scrotum and perineum. No drainable fluid collection. Leukocytosis on admission 29?25. Lactic acidosis 4.4? now 1.8 after aggressive IVFs. Continue vanc and zosyn. Gen surgery consulted. Appreciate opinion and detailed notes, recommendations and timely communication. Wound care. Keep area clean and dry. If little improvement in the next day, consider ID consult for abx management assistance. 2. Abnormal arterial Doppler study. Report is slightly unclear about exact location of stenosis. Attempted to call radiologist, but reading radiologist had gone for the day. He will be back tomorrow and we will try to touch base with him for clarification. In the meantime, wonder if there is some component of arterial disease contributing to skin issues. Consulted vascular (Dr. Garcia) for an opinion. 2. Cardiomyopathy of unknown etiology. Echo promote by elevated trop showed EF 25-30% with global hypokinesis of the left ventricle. Started carvedilol per cardiology. Appreciate continued cardiology recommendations and assistance with management. Check lipids. If he desaturates or becomes short of breath overnight, consider fluid overload as cause since he received copious amounts of IVFs on admission. 3. Episode of polymorphic VT. Asymptomatic this morning. Lytes are within normal and EKG without prolonged QTc. Continue CCM. 4. VAUGHN. Cr 1.7?1.49. Unknown baseline. Follow Cr. If Cr is not trending downward in an expected fashion, would pursue additional work up with urine lytes and renal ultrasound. 5. Elevated LFTs. Unsure if this is secondary to infectious issue. If levels do not trend down as infection improves, other considerations for fatty liver vs infiltrative disease of the liver. 6. New dx of DM. A1C 7.5. sliding scale insulin. Plan to start metformin at discharge. 7. Obesity. BMI 41. Likely has COREY. On Echo, pulm artery pressure is within a normal range. Dispo: pending clinical improvement. Subjective Patient reports continued RLE pain, increased work of breathing . denies fever,chills. Telemetry reported 10 sec run of [place]. Mg checked and was wnl Review of Systems Constitutional: no fever, no chills, no fatigue and no weakness Respiratory: no cough, no dyspnea and no wheezing Cardiovascular: no chest pain and no palpitations Gastrointestinal: no abdominal pain, no nausea, no vomiting and no change in stools Integumentary: Left groin, Right leg redness, swelling , pain Physical Exam Physical Exam: GENERAL APPEARANCE: increased work of breathing, alert and cooperative HEAD: normocephalic. EYES: PERRL, EOMI. vision is grossly intact. NECK: Neck supple, non-tender without lymphadenopathy CARDIAC: Normal S1 and S2. No S3, S4 or murmurs. Rhythm is regular LUNGS: Clear to auscultation and percussion without rales, rhonchi, wheezing or diminished breath sounds. ABDOMEN: Positive bowel sounds. Soft, nondistended, nontender. No guarding or rebound. No masses. LOWER EXTREMITY: no edema NEUROLOGICAL: CN II-XII grossly intact. Strength and sensation intact SKIN: left lower extremity: multiple weeping ulcers diffuse warm erythema extending from scrotum the left left to feet, 2+ edema Results & Data Vital Signs (Past 12 Hours) Vital Signs Temp Pulse Resp BP Pulse Ox 07/14/18 15:35 36.9 C 95 H 20 133/93 94 07/14/18 11:29 36.3 C L 102 H 24 154/103 H 96 07/14/18 08:15 36.6 C 104 H 22 111/79 98 Resident Activity Tracking Resident Involvement: Resident Care Provided Care Provided: Adult Hospital Medicine (1) Sepsis Sepsis type: sepsis due to unspecified organism Qualified Code(s): A41.9 - Sepsis, unspecified organism
[2018-07-14] MEDS ORDERED: POTASSIUM CHLORIDE 20 MEQ TABCR PO STA (20:41)
[2018-07-15] MEDS: VANCOMYCIN HCL 1,750 MG in SODIUM CHLORIDE 0.9% 500 ML IV SCH ×2 (02:00→17:20)
[2018-07-15] MEDS: HEPARIN SOD 5,000 UNIT/0.5 ML VIAL SQ SCH ×3 (06:00→20:50)
[2018-07-15] MEDS: PIPERACILLIN/TAZOBACTAM 4.5 GM in DEXTROSE 5% 100 ML IV SCH ×3 (06:06→23:11)
[2018-07-15 06:25] LABS: Hemoglobin 14.5 g/dL (14.0-18.0); Mean Corpuscular Hgb Conc 33.7 g/dL (32-36); Mean Corpuscular Volume 86.9 fL (80-100); Mean Platelet Volume 11.5 fL (7.4-10.4); Platelet Count 270 K/uL (130-400); RDW Coefficient of Variation 14.5 % (11.5-14.5); RDW Standard Deviation 46.1 fL (36.4-46.3); Red Blood Count 4.95 M/uL (4.7-6.1); White Blood Count 24.67 K/uL (4.8-10.8)
[2018-07-15 06:59] LABS: BUN Creatinine Ratio 20.4 (10-20); Calcium 8.4 mg/dl (8.5-10.1); Creatinine Clr Calc Pharmacy 79.8 ml/min; Est GFR (African American) 55.4; Est GFR (Non-African American) 47.8
[2018-07-15 07:01] LABS: Albumin Globulin Ratio 0.5 (0.9-2); Bilirubin,Total 0.9 mg/dl (0.2-1); Globulin 3.7 gm/dl (2.5-4.0); Total Protein 5.7 gm/dl (6.4-8.2)
[2018-07-15 07:06] LABS: Basophils # (auto) 0.01 K/uL (0-0.2); Eosinophils # (auto) 0.03 K/uL (0-0.5); Eosinophils % (auto) 0.1 %; Giant Platelets 1+; Immature Granulocytes # (auto) 0.33 K/uL (0.00-0.02); Immature Granulocytes % (auto) 1.3 %; Lymphocytes # (auto) 1.01 K/uL (1.2-3.4); Lymphocytes % (auto) 4.1 %; Monocytes # (auto) 2.55 K/uL (0.11-0.59); Monocytes % (auto) 10.3 %; Neutrophils # (auto) 20.74 K/uL (1.4-6.5); Neutrophils % (auto) 84.2 %; Poikilocytosis Present; Toxic Granulation 1+
[2018-07-15] MEDS: NYSTATIN POWDER 15GM BTL EXT SCH ×2 (08:21→20:50)
[2018-07-15] MEDS: CARVEDILOL 3.125 MG TAB PO SCH (08:21)
[2018-07-15] MEDS ORDERED: CALCIUM CARBONATE 500 MG CHEWABLE TAB PO PRN (08:44)
[2018-07-15] MEDS ORDERED: CARBOHYDRATES FOR HYPOGLYCEMIA PO PRN (09:38)
[2018-07-15] MEDS ORDERED: GLUCOSE 10 TABS/TUBE PO PRN (09:38)
[2018-07-15] MEDS ORDERED: DEXTROSE 50% 50 ML SYRINGE IV PRN (09:38)
[2018-07-15] MEDS ORDERED: GLUCAGON FOR INJ 1 MG VIAL SQ PRN (09:38)
[2018-07-15] MEDS ORDERED: GLUCOSE 40% GEL 15 GM TUBE PO PRN (09:38)
--- NOTE | 2018-07-15 10:23 | Surgery Progress Note ---
Date of Service July 15, 2018 Assessment & Plan (1) Cellulitis of groin: 53 year-old male with severe cellulitis of the left foot, leg, groin, scrotum, and onto lower abdominal wall. No associated abscess and clinical status improved. No nec fasc at this point. Also multiple newly diagnosed medical conditions, which are being addressed by the hospitalists. Plan: - Continue to treat as severe cellulitis. No current signs of nec fasc and no abscesses. Please contact surgery if any change in exam or worsening clinical status - Vascular consult pending for abnormal arterial duplex - Continue broad spectrum abx - Elevate leg - Recommend PT/OT consult - Avoid any creams to the affect area or applying anything that would encourage moisture. Attempt to keep the area dry - Surgery will sign off, but please do not hesitate to contact us with any further questions or concerns (2) Cellulitis of left leg: (3) Sepsis: Subjective No acute events overnight. Pain has started to improve. He had his right leg hanging off of the bed. When asked about this he states that is how he always lays. Uncertain if this is to alleviate any symptoms. Physical Exam Constitutional: no acute distress Respiratory: + labored breathing Cardiovascular: Rate/Rhythm: regular rate Skin: severe edema and erythema from bilateral groins, into scrotum, and down left leg all the way to the foot, erythema has improved compared to yesterday, excoriations of bilateral inner thigh/groin, pitting edema of the legs, which are weeping, increased blistering on left leg, shins with a few shallow ulcers with fibrinous exudate at the base, left foot with increased edema, new bruising on top of foot/base of toes, there is a foul odor Results & Data Vital Signs (Past 12 Hours) Vital Signs Temp Pulse Pulse Resp BP Pulse Ox 07/15/18 07:39 36.6 C 78 24 142/92 H 92 07/15/18 05:15 91 H 07/15/18 03:53 36.6 C 80 32 H 129/86 93 07/14/18 23:50 36.6 C 89 18 135/88 95 Laboratory Results 07/15/18 07/15/18 07/15/18 Range/Units 07:35 05:48 05:48 WBC 24.67 H (4.8-10.8) K/uL RBC 4.95 (4.7-6.1) M/uL Hgb 14.5 (14.0-18.0) g/dL Hct 43.0 (42-52) % MCV 86.9 (80-100) fL MCH 29.3 (25-34) pg MCHC 33.7 (32-36) g/dL RDW Std Deviation 46.1 (36.4-46.3) fL RDW Coeff of Junior 14.5 (11.5-14.5) % Plt Count 270 (130-400) K/uL MPV 11.5 H (7.4-10.4) fL Immature Gran % (Auto) 1.3 % Neut % (Auto) 84.2 % Lymph % (Auto) 4.1 % [place] % (Auto) 10.3 % Eos % (Auto) 0.1 % Baso % (Auto) 0.0 % Immature Gran # (Auto) 0.33 H (0.00-0.02) K/uL Neut # (Auto) 20.74 H (1.4-6.5) K/uL Lymph # (Auto) 1.01 L (1.2-3.4) K/uL [place] # (Auto) 2.55 H (0.11-0.59) K/uL Eos # (Auto) 0.03 (0-0.5) K/uL Baso # (Auto) 0.01 (0-0.2) K/uL Toxic Granulation 1+ Platelet Estimate (Normal) Giant Platelets 1+ Poikilocytosis Present Echinocytes Sodium 133 L (136-145) mmol/L Potassium (3.5-5.1) mmol/L Chloride 100 (98-107) mmol/L Carbon Dioxide 26 (21-32) mmol/L Anion Gap 8.0 (3-11) BUN 33 H (7-18) mg/dl Creatinine 1.61 H (0.6-1.4) mg/dl Est Cr Clr Drug Dosing 79.8 ml/min Est GFR ( Amer) 55.4 Est GFR (Non-Af Amer) 47.8 BUN/Creatinine Ratio 20.4 H (10-20) Glucose 137 H (70-99) mg/dl POC Glucose 128 H (70-99) Estimat Average Glucose mg/dl Hemoglobin A1c (4.5-5.6) % Lactate (0.4-2.0) mmol/L Calcium 8.4 L (8.5-10.1) mg/dl Total Bilirubin 0.9 (0.2-1) mg/dl AST (15-37) U/L ALT 74 (12-78) U/L Alkaline Phosphatase 77 (45-117) U/L Total Protein 5.7 L (6.4-8.2) gm/dl Albumin 2.0 L (3.4-5.0) gm/dl Globulin 3.7 (2.5-4.0) gm/dl Albumin/Globulin Ratio 0.5 L (0.9-2) Triglycerides 105 (0-150) mg/dl Cholesterol 67 (0-200) mg/dl LDL Cholesterol, Calc 32 mg/dl VLDL Cholesterol, Calc 21 mg/dl HDL Cholesterol 14 mg/dl Cholesterol/HDL Ratio 5 Urine Color Urine Appearance (Clear) Urine pH (4.5-7.5) Ur Specific [place] (1.000-1.030) Urine Protein (Negative) Urine Glucose (UA) (Negative) Urine Ketones (Negative) Urine Blood (Negative) Urine Nitrite (Negative) Urine Bilirubin (Negative) Urine Urobilinogen (Negative) Ur Leukocyte Esterase (Negative) Urine WBC (Auto) (0-5) /hpf Urine RBC (Auto) (0-4) /hpf U Hyaline Cast (Auto) (0-5) /lpf U Epithel Cells (Auto) (0-5) /lpf Urine Bacteria (Auto) (Negative) Ur Renal Epithelial Cell 07/14/18 07/14/18 07/14/18 Range/Units 20:13 14:07 11:15 WBC (4.8-10.8) K/uL RBC (4.7-6.1) M/uL Hgb (14.0-18.0) g/dL Hct (42-52) % MCV (80-100) fL MCH (25-34) pg MCHC (32-36) g/dL RDW Std Deviation (36.4-46.3) fL RDW Coeff of Junior (11.5-14.5) % Plt Count (130-400) K/uL MPV (7.4-10.4) fL Immature Gran % (Auto) % Neut % (Auto) % Lymph % (Auto) % [place] % (Auto) % Eos % (Auto) % Baso % (Auto) % Immature Gran # (Auto) (0.00-0.02) K/uL Neut # (Auto) (1.4-6.5) K/uL Lymph # (Auto) (1.2-3.4) K/uL [place] # (Auto) (0.11-0.59) K/uL Eos # (Auto) (0-0.5) K/uL Baso # (Auto) (0-0.2) K/uL Toxic Granulation Platelet Estimate (Normal) Giant Platelets Poikilocytosis Echinocytes Sodium (136-145) mmol/L Potassium (3.5-5.1) mmol/L Chloride (98-107) mmol/L Carbon Dioxide (21-32) mmol/L Anion Gap (3-11) BUN (7-18) mg/dl Creatinine (0.6-1.4) mg/dl Est Cr Clr Drug Dosing ml/min Est GFR ( Amer) Est GFR (Non-Af Amer) BUN/Creatinine Ratio (10-20) Glucose (70-99) mg/dl POC Glucose 187 H (70-99) Estimat Average Glucose mg/dl Hemoglobin A1c (4.5-5.6) % Lactate 1.8 (0.4-2.0) mmol/L Calcium (8.5-10.1) mg/dl Total Bilirubin (0.2-1) mg/dl AST (15-37) U/L ALT (12-78) U/L Alkaline Phosphatase (45-117) U/L Total Protein (6.4-8.2) gm/dl Albumin (3.4-5.0) gm/dl Globulin (2.5-4.0) gm/dl Albumin/Globulin Ratio (0.9-2) Triglycerides (0-150) mg/dl Cholesterol (0-200) mg/dl LDL Cholesterol, Calc mg/dl VLDL Cholesterol, Calc mg/dl HDL Cholesterol mg/dl Cholesterol/HDL Ratio Urine Color Dark Yellow Urine Appearance Clear (Clear) Urine pH 6.0 (4.5-7.5) Ur Specific [place] 1.044 H (1.000-1.030) Urine Protein 2+ H (Negative) Urine Glucose (UA) Trace H (Negative) Urine Ketones Negative (Negative) Urine Blood 1+ H (Negative) Urine Nitrite Negative (Negative) Urine Bilirubin Negative (Negative) Urine Urobilinogen Negative (Negative) Ur Leukocyte Esterase Negative (Negative) Urine WBC (Auto) 1-5 (0-5) /hpf Urine RBC (Auto) 5-10 H (0-4) /hpf U Hyaline Cast (Auto) 1-5 (0-5) /lpf U Epithel Cells (Auto) >30 H (0-5) /lpf Urine Bacteria (Auto) 1+ H (Negative) Ur Renal Epithelial Cell Not Reportable 07/14/18 07/14/18 Range/Units 09:26 06:10 WBC 25.16 H (4.8-10.8) K/uL RBC 5.34 (4.7-6.1) M/uL Hgb 15.8 (14.0-18.0) g/dL Hct 46.2 (42-52) % MCV 86.5 (80-100) fL MCH 29.6 (25-34) pg MCHC 34.2 (32-36) g/dL RDW Std Deviation 44.8 (36.4-46.3) fL RDW Coeff of Junior 14.3 (11.5-14.5) % Plt Count 225 (130-400) K/uL MPV 11.5 H (7.4-10.4) fL Immature Gran % (Auto) 3.3 % Neut % (Auto) 88.0 % Lymph % (Auto) 1.9 % [place] % (Auto) 6.7 % Eos % (Auto) 0.0 % Baso % (Auto) 0.1 % Immature Gran # (Auto) 0.82 H (0.00-0.02) K/uL Neut # (Auto) 22.15 H (1.4-6.5) K/uL Lymph # (Auto) 0.47 L (1.2-3.4) K/uL [place] # (Auto) 1.69 H (0.11-0.59) K/uL Eos # (Auto) 0.00 (0-0.5) K/uL Baso # (Auto) 0.03 (0-0.2) K/uL Toxic Granulation Platelet Estimate Normal (Normal) Giant Platelets 1+ Poikilocytosis Echinocytes 1+ Sodium (136-145) mmol/L Potassium (3.5-5.1) mmol/L Chloride (98-107) mmol/L Carbon Dioxide (21-32) mmol/L Anion Gap (3-11) BUN (7-18) mg/dl Creatinine (0.6-1.4) mg/dl Est Cr Clr Drug Dosing ml/min Est GFR ( Amer) Est GFR (Non-Af Amer) BUN/Creatinine Ratio (10-20) Glucose (70-99) mg/dl POC Glucose (70-99) Estimat Average Glucose 169 mg/dl Hemoglobin A1c 7.5 H (4.5-5.6) % Lactate (0.4-2.0) mmol/L Calcium (8.5-10.1) mg/dl Total Bilirubin (0.2-1) mg/dl AST (15-37) U/L ALT (12-78) U/L Alkaline Phosphatase (45-117) U/L Total Protein (6.4-8.2) gm/dl Albumin (3.4-5.0) gm/dl Globulin (2.5-4.0) gm/dl Albumin/Globulin Ratio (0.9-2) Triglycerides (0-150) mg/dl Cholesterol (0-200) mg/dl LDL Cholesterol, Calc mg/dl VLDL Cholesterol, Calc mg/dl HDL Cholesterol mg/dl Cholesterol/HDL Ratio Urine Color Urine Appearance (Clear) Urine pH (4.5-7.5) Ur Specific [place] (1.000-1.030) Urine Protein (Negative) Urine Glucose (UA) (Negative) Urine Ketones (Negative) Urine Blood (Negative) Urine Nitrite (Negative) Urine Bilirubin (Negative) Urine Urobilinogen (Negative) Ur Leukocyte Esterase (Negative) Urine WBC (Auto) (0-5) /hpf Urine RBC (Auto) (0-4) /hpf U Hyaline Cast (Auto) (0-5) /lpf U Epithel Cells (Auto) (0-5) /lpf Urine Bacteria (Auto) (Negative) Ur Renal Epithelial Cell (1) Sepsis Sepsis type: sepsis due to unspecified organism Qualified Code(s): A41.9 - Sepsis, unspecified organism
--- NOTE | 2018-07-15 10:59 | Infectious Disease Consult ---
Date of Consultation July 15, 2018 Assessment & Plan (1) Cellulitis of left leg: No evidence for necrotizing fasciitis on CT scan however he does have significant cellulitis of the groin extending into the left lower extremity. He will be continued on Zosyn and Vanco for now. Clindamycin will be added for antitoxin effect. His leukocytosis has improved somewhat and his lactate has trended down to normal. Blood culture so far negative will continue to follow (2) Cellulitis of groin: History of Present Illness Attending Physician: Phil Knox DO The patient was admitted from home with worsening groin pain swelling with extension into the left lower extremity. He was evaluated in the emergency room a CT scan of the pelvis was performed showing diffuse edema with no drainable collection but some concern for air in the penis. He did have surgical evaluation due to concern for necrotizing fasciitis. He also had a CT scan of the leg which again showed diffuse edema without any evidence of abscess or myositis. His initial white blood cell count was 28. It has improved slightly to 24 today. He initially had an elevated lactate which is improved to 1.8 today. He was started empirically on vancomycin and Zosyn and he is tolerating these well. He has been afebrile since admission to the hospital. His creatinine is elevated at 1.6. He did have contrast initially with his CT scan. The blood cultures were obtained in the emergency room yesterday and are no growth to date. On my examination today he denies any pain in the leg. He states overall he is feeling somewhat better. He denies any fevers or chills. He denies any nausea vomiting diarrhea or abdominal pain. He denies any chest pain cough shortness of breath. He denies any past medical history but also has not been seen by physician for considerable amount time. He did undergo Dopplers of his left lower extremity and this was negative for clot. His chest x-ray was unremarkable. He did admit to having a fungal groin infection and he is receiving nystatin powder for this. Surgery is following with no plans for surgery at this time. Infectious Diseases was consulted for antibiotic recommendations Allergies Allergy/AdvReac Type Severity Reaction Status Date / Time No Known Allergies Allergy Unverified 07/14/18 02:22 Home Medications Home Medications Medication Instructions Recorded Confirmed Type No Known Home Medications 07/14/18 07/14/18 History Patient History Medical History No acute medical problems Social History Communication Ability: Effective Peanut Picker Required: No Beliefs That Will Affect Care: None Current Living Situation: Parent Current Living Situation Comment: FATHER Other Information That Helps Us Care for You: No Feels Safe at Home: Yes Safety Concerns: Feels Safe At This Time Smoking Status: Never smoker Hx Alcohol Use: No Hx Substance Use: No Review of Systems Review of Systems: All systems reviewed & are unremarkable except as noted in HPI & below Physical Exam Constitutional: WD/WN, vitals as above Eyes: PERRL, conjunctivae normal, anicteric sclerae Abrasion superficially noted on left eyelid ENMT: external ear and nose normal, oropharynx normal Neck: normal visual inspection Respiratory: normal respiratory effort, lungs clear to auscultation Auscultation: + diminished lung sounds Poor inspiratory effort Cardiovascular: RRR, no murmur, no edema Gastrointestinal (Abdomen): normal bowel sounds, soft, nontender, no hepatospl enomegaly Musculoskeletal: no cyanosis or clubbing, extremities motor strength 5/5 Skin: + ulcer, + induration and + wound Trauma: + abrasion Examination of the left leg reveals significant edema and patchy erythema extending from the groin to the foot. There are several superficial ulcerations minimal weeping. There is no purulent drainage there is no bleeding. This is not warm to touch. He denies any tenderness to deep palpation. Psychiatric: A+Ox3, euthymic affect Affect: + flat affect Results & Data Vital Signs (Past 12 Hours) Vital Signs Temp Pulse Pulse Resp BP Pulse Ox 07/15/18 10:40 36.4 C L 77 20 126/87 94 07/15/18 08:00 82 07/15/18 07:39 36.6 C 78 24 142/92 H 92 07/15/18 05:15 91 H 07/15/18 03:53 36.6 C 80 32 H 129/86 93 07/14/18 23:50 36.6 C 89 18 135/88 95 Laboratory Results Microbiology 07/14/18 00:12 Blood Blood Culture - Preliminary No growth to date. 07/13/18 23:53 Blood Blood Culture - Preliminary No growth to date.
[2018-07-15] MEDS: CLINDAMYCIN 600 MG in DEXTROSE 5% 50 ML IV SCH ×2 (12:02→20:49)
[2018-07-15] MEDS: INSULIN ASPART 100 UNITS/ML 3 ML PEN SC SCH ×3 (12:08→20:51)
[2018-07-15 15:23] LABS: Sodium Random Urine < 5 mmol/L; Total Protein Urine Random 92.7 mg/dl (0-11.9)
[2018-07-15] MEDS ORDERED: VANCOMYCIN TROUGH ONE (15:30)
--- NOTE | 2018-07-15 16:03 | Consultation ---
Date of Consultation July 15, 2018 Assessment & Plan (1) Chronic venous insufficiency: At this point the patient has no evidence of arterial insufficiency of the left lower extremity. He does have chronic venous insufficiency of the left leg. For this I would we recommend local wound care for the ulcerations as well as antibiotic treatment. I would also consider compression stockings of the left lower extremity to help with the edema. No vascular intervention is needed at this time. Due to the arterial study and findings on physical exam no vascular follow-up as an outpatient as needed. Thank you very much for letting us participate in the care of this patient. History of Present Illness Reason for Consultation: Arterial insufficiency of the left lower extremity. Attending Physician: Phil Knox DO History of Present Illness This is a 53-year-old gentleman who presented with bilateral groin erythema extending down the left leg and lower abdominal wall. This is been going on for few days prior to admission. He does complain of chronic left leg swelling with small ulcerations anterior surface of his lower leg. He denies any claudication in his legs he denies any ulcerations of his feet other than the small ulcers of the left lower extremity lower leg. He denies any rest pain of his lower extremities. He is on no medication at home. 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 He is in no apparent distress. Lungs are clear to auscultation Heart had a regular rate and rhythm. Abdominal exam is benign. Lower extremity exam shows redness of both groins and extending down the left leg to the left foot. There is edema in the left lower extremity from the knee distally. There is small ulceration seen in the left lower leg above the ankle. Vascular exam reveals radials carotid superficial temporal arteries +2 bilaterally. Pedal pulses are all +2 bilaterally. Neurologic exam is grossly intact. Ultrasound showed triphasic waveforms throughout the left lower extremity with no vascular occlusive disease noted. Results & Data Vital Signs (Past 12 Hours) Vital Signs Temp Pulse Pulse Resp BP Pulse Ox 07/15/18 15:32 36.5 C 79 20 142/94 H 95 07/15/18 10:40 36.4 C L 77 20 126/87 94 07/15/18 08:00 82 07/15/18 07:39 36.6 C 78 24 142/92 H 92 07/15/18 05:15 91 H
--- NOTE | 2018-07-15 16:28 | Cardiology Progress Note ---
Date of Service July 15, 2018 Assessment & Plan (1) Cardiomyopathy: Unclear etiology. I think we can increase his beta blockade. While his outpatient record suggests he was on lisinopril, discussion with the patient today revealed that he was not likely taking this medication. At some point will need to reinitiate Jaya inhibition as well. (2) Elevated troponin: Likely related to his cardiomyopathy. I do not believe he suffered a recent acute coronary syndrome. No symptoms of chest discomfort. (3) Polymorphic ventricular tachycardia: No recurrence. On beta-blockade. Subjective This afternoon the patient did not have any complaints. He states that his leg hurts after dressing changes and movement but at rest no symptoms. He denies breathing difficulty. He has not been ambulatory. Review of Systems Review of Systems: Per HPI Physical Exam Physical Exam: The patient is alert and oriented. Mood and affect appeared normal. He answered all questions appropriately. HEENT: Pupils are equal and reactive to light and accommodation. Extraocular movements are intact. The sclerae are anicteric. Neuro: Cranial nerves intact Lungs: Clear to auscultation bilaterally. He has good air movement without use of accessory muscles. No rales wheezes or rhonchi. Cardiac: Heart demonstrates a regular rate and rhythm. Normal S1 and S2. No murmurs on examination. Results & Data Vital Signs (Past 12 Hours) Vital Signs Temp Pulse Pulse Resp BP Pulse Ox 07/15/18 15:32 36.5 C 79 20 142/94 H 95 07/15/18 10:40 36.4 C L 77 20 126/87 94 07/15/18 08:00 82 07/15/18 07:39 36.6 C 78 24 142/92 H 92 07/15/18 05:15 91 H Laboratory Results Abnormal Lab Results 07/14/18 07/15/18 07/15/18 20:13 05:48 05:48 WBC 24.67 H RBC 4.95 Hgb 14.5 Hct 43.0 MCV 86.9 MCH 29.3 MCHC 33.7 RDW Std Deviation 46.1 RDW Coeff of Junior 14.5 Plt Count 270 MPV 11.5 H Immature Gran % (Auto) 1.3 Neut % (Auto) 84.2 Lymph % (Auto) 4.1 [place] % (Auto) 10.3 Eos % (Auto) 0.1 Baso % (Auto) 0.0 Immature Gran # (Auto) 0.33 H Neut # (Auto) 20.74 H Lymph # (Auto) 1.01 L [place] # (Auto) 2.55 H Eos # (Auto) 0.03 Baso # (Auto) 0.01 Toxic Granulation 1+ Giant Platelets 1+ Poikilocytosis Present Sodium 133 L Potassium Chloride 100 Carbon Dioxide 26 Anion Gap 8.0 BUN 33 H Creatinine 1.61 H Est Cr Clr Drug Dosing 79.8 Est GFR ( Amer) 55.4 Est GFR (Non-Af Amer) 47.8 BUN/Creatinine Ratio 20.4 H Glucose 137 H POC Glucose 187 H Calcium 8.4 L Total Bilirubin 0.9 AST ALT 74 Alkaline Phosphatase 77 Total Protein 5.7 L Albumin 2.0 L Globulin 3.7 Albumin/Globulin Ratio 0.5 L Triglycerides 105 Cholesterol 67 LDL Cholesterol, Calc 32 VLDL Cholesterol, Calc 21 HDL Cholesterol 14 Cholesterol/HDL Ratio 5 Ur Random Creatinine U Random Total Protein Ur Random Sodium Protein/Creatinin Ratio 07/15/18 07/15/18 07/15/18 07:35 11:22 14:35 WBC RBC Hgb Hct MCV MCH MCHC RDW Std Deviation RDW Coeff of Junior Plt Count MPV Immature Gran % (Auto) Neut % (Auto) Lymph % (Auto) [place] % (Auto) Eos % (Auto) Baso % (Auto) Immature Gran # (Auto) Neut # (Auto) Lymph # (Auto) [place] # (Auto) Eos # (Auto) Baso # (Auto) Toxic Granulation Giant Platelets Poikilocytosis Sodium Potassium Chloride Carbon Dioxide Anion Gap BUN Creatinine Est Cr Clr Drug Dosing Est GFR ( Amer) Est GFR (Non-Af Amer) BUN/Creatinine Ratio Glucose POC Glucose 128 H 147 H Calcium Total Bilirubin AST ALT Alkaline Phosphatase Total Protein Albumin Globulin Albumin/Globulin Ratio Triglycerides Cholesterol LDL Cholesterol, Calc VLDL Cholesterol, Calc HDL Cholesterol Cholesterol/HDL Ratio Ur Random Creatinine 163.0 U Random Total Protein 92.7 H Ur Random Sodium < 5 Protein/Creatinin Ratio 0.6 H 07/15/18 07/15/18 07/15/18 14:35 14:35 16:19 WBC RBC Hgb Hct MCV MCH MCHC RDW Std Deviation RDW Coeff of Junior Plt Count MPV Immature Gran % (Auto) Neut % (Auto) Lymph % (Auto) [place] % (Auto) Eos % (Auto) Baso % (Auto) Immature Gran # (Auto) Neut # (Auto) Lymph # (Auto) [place] # (Auto) Eos # (Auto) Baso # (Auto) Toxic Granulation Giant Platelets Poikilocytosis Sodium Potassium Chloride Carbon Dioxide Anion Gap BUN Creatinine Est Cr Clr Drug Dosing Est GFR ( Amer) Est GFR (Non-Af Amer) BUN/Creatinine Ratio Glucose POC Glucose 154 H Calcium Total Bilirubin AST ALT Alkaline Phosphatase Total Protein Albumin Globulin Albumin/Globulin Ratio Triglycerides Cholesterol LDL Cholesterol, Calc VLDL Cholesterol, Calc HDL Cholesterol Cholesterol/HDL Ratio Ur Random Creatinine Cancelled U Random Total Protein Ur Random Sodium Cancelled Protein/Creatinin Ratio ECG Additional Comments: Telemetry did not demonstrate any additional arrhythmias
[2018-07-15 16:32] LABS: Magnesium 2.4 mg/dl (1.8-2.4); Phosphorus 4.4 mg/dl (2.5-4.9)
--- NOTE | 2018-07-15 17:04 | Pharmacy Report ---
Pharmacy Abx Dose Short Note - Date of Service July 15, 2018 - Assessment & Plan Assessment 53 year old M receiving Vancomycin 1750mg IV Q14H for treatment of left leg and groin cellulitis. Day # 2 of antimicrobial therapy. Laboratory Tests 07/15/18 15:41 Vancomycin Trough 15.9 Plan Vancomycin * Trough level of 15.9 mcg/mL is therapeutic. * Continue dose of 1750 mg IV every 14 hours * Please note that this level is not reflective of steady state. Level was obtained early to ensure the patient was not accumulating drug in the setting of obesity (BMI 41.2). Pharmacy will continue to follow and will adjust dose/frequency as necessary. Thank you.
--- NOTE | 2018-07-15 17:45 | Family Medicine Progress Note ---
Date of Service July 15, 2018 Assessment & Plan (1) Sepsis: 53 y/o M who denies any known medical history presenting with sepsis in the setting of left groin/left leg cellulitis - tachycardia resolved while on b-elsa, tachypneic , afebrile with leukocytosis improvinf - lactate trended to normal on 07/14 - NO CT findings concerning for necrotizing fasciitis - Surgery consulted but given lack of fluid collection, recommended - Continue broad spectrum antibiotics (Vanc, Zosyn) - D/C'd IV fluids due to suspicion of fluid overload (2) Cellulitis of left leg: treat as above source of entry possible multiple ulcers vs suspected fungal infection of groin seen by Surgery, no evidence of fluid collection warranting surgical removal or indication for debridement Arterial Doppler reviewed by Jose who reports no evidence of arterial ins ufficiency, but report chronic venous insufficiency alone pulses were detectable with Doppler at bedside ID consulted, agreed with Vanc , zosyn, but added Clindamycin for antitoxic effect, appreciate recommendations Continue to monitor, daily CBCs Blood cx NGTD (3) Cellulitis of groin: manage as above (4) Polymorphic ventricular tachycardia: no repeat runs of [place] x 1 Continue to monitor daily metabolic panels Started on Coreg, Monitor on telemetry (5) Cardiomyopathy: Echo report findings of severe non-ischemic cardiomyopathy with severely depressed LV function with global hypokinesis unclear etiology Cardiology suspects infiltrative process at play will continue to monitor, FLuids stopped as above, monitor fluid status daily (6) Elevated troponin: per cardiology, ACS unlikely likely due to advanced Cardiomyopathy as described above no EKG changes concerning for ischemia Supervising Physician Co-Signing Physician Notes Patient seen and examined with Dr. Sr. Agree with history, exam findings, assessment and plan with the following updates: In brief, 53 year old male with no known chronic medical issues admitted with cellulitis of the groin, elevated troponin, LFTs and Cr. He was last seen by a primary care physician approximately 2 years ago and did not identify any health issues at the time. On exam today, cellulitic area of the groin and scrotum are weepy, erythematous, and tender. Foul odor. 1.Cellulitis left groin/scrotal area. Sepsis. CT with fat stranding and fluid along scrotum and perineum. No drainable fluid collection. Leukocytosis on admission 29?25?24.6. Lactic acidosis 4.4? now 1.8 after aggressive IVFs. Continue vanc and zosyn. Added clinda for antitoxin effect. Gen surgery and ID consulted. Appreciate recommendations. Wound care. Keep area clean and dry. 2. Abnormal arterial Doppler study. Appreciate Dr. Mcdonough opinion. Seems that the study is mostly abnormal with regard to the venous system and not the arterial system? 2. Cardiomyopathy of unknown etiology. Echo promote by elevated trop showed EF 25-30% with global hypokinesis of the left ventricle. Started carvedilol per cardiology. Appreciate continued cardiology recommendations and assistance with management. If he desaturates or becomes short of breath overnight, consider fluid overload as cause since he received copious amounts of IVFs on admission. 3. Episode of polymorphic VT. Asymptomatic this morning. Lytes are within normal and EKG without prolonged QTc. Continue CCM. Monitor lytes and replete. 4. VAUGHN. Cr 1.7?1.49?1.61. Unknown baseline. Follow Cr. If Cr is not trending downward in an expected fashion, would pursue additional work up with urine lytes and renal ultrasound. 5. Elevated LFTs. Unsure if this is secondary to infectious issue. Trending down. 6. New dx of DM. A1C 7.5. sliding scale insulin. Plan to start metformin at discharge. 7. Obesity. BMI 41. Likely has COREY. On Echo, pulm artery pressure is within a normal range. 8. protein malnutrition. Likely secondary to chronic illness. Nutrition consult. Dispo: pending clinical improvement. Subjective Patient continues to report Left foot discomfort, other morales he had no complaints. He denies fevers, chills, sob, calf tenderness, n/v, diarrhea Review of Systems Review of Systems: Constitutional: no fever, no chills, no fatigue and no weakness Respiratory: no cough, no dyspnea and no wheezing Cardiovascular: no chest pain and no palpitations Gastrointestinal: no abdominal pain, no nausea, no vomiting and no change in stools Integumentary: right groin/ Right leg redness, swelling , pain Physical Exam Physical Exam: GENERAL APPEARANCE:obese , alert and cooperative HEAD: normocephalic. EYES: PERRL, EOMI. vision is grossly intact. NECK: Neck supple, non-tender without lymphadenopathy CARDIAC: Normal S1 and S2. No S3, S4 or murmurs. Rhythm is regular LUNGS: Clear to auscultation and percussion without rales, rhonchi, wheezing or diminished breath sounds. ABDOMEN: Positive bowel sounds. Soft, nondistended, nontender. No guarding or rebound. No masses. LOWER EXTREMITY: 2+ edema NEUROLOGICAL: CN II-XII grossly intact. Strength and sensation intact SKIN: left lower extremity: multiple weeping ulcers diffuse warm erythema extending from scrotum to the left foot Results & Data Vital Signs (Past 12 Hours) Vital Signs Temp Pulse Pulse Resp BP Pulse Ox 07/15/18 15:32 36.5 C 79 20 142/94 H 95 07/15/18 10:40 36.4 C L 77 20 126/87 94 07/15/18 08:00 82 07/15/18 07:39 36.6 C 78 24 142/92 H 92 (1) Sepsis Sepsis type: sepsis due to unspecified organism Qualified Code(s): A41.9 - Sepsis, unspecified organism
[2018-07-15] MEDS: CARVEDILOL 6.25 MG TAB PO SCH (20:49)
[2018-07-16] MEDS: CLINDAMYCIN 600 MG in DEXTROSE 5% 50 ML IV SCH ×3 (05:08→20:20)
[2018-07-16] MEDS ORDERED: VANCOMYCIN TROUGH ONE (05:30)
[2018-07-16] MEDS: VANCOMYCIN HCL 1,750 MG in SODIUM CHLORIDE 0.9% 500 ML IV SCH ×2 (06:03→20:24)
[2018-07-16] MEDS: HEPARIN SOD 5,000 UNIT/0.5 ML VIAL SQ SCH ×3 (06:04→22:04)
[2018-07-16] MEDS: PIPERACILLIN/TAZOBACTAM 4.5 GM in DEXTROSE 5% 100 ML IV SCH ×3 (06:12→23:08)
[2018-07-16 06:41] LABS: Basophils # (auto) 0.03 K/uL (0-0.2); Basophils % (auto) 0.1 %; Eosinophils # (auto) 0.31 K/uL (0-0.5); Eosinophils % (auto) 1.5 %; Hematocrit (blood only) 42.2 % (42-52); Hemoglobin 14.5 g/dL (14.0-18.0); Immature Granulocytes # (auto) 0.23 K/uL (0.00-0.02); Immature Granulocytes % (auto) 1.1 %; Lymphocytes % (auto) 6.5 %; Mean Corpuscular Hgb Conc 34.4 g/dL (32-36); Mean Corpuscular Volume 85.4 fL (80-100); Mean Platelet Volume 10.9 fL (7.4-10.4); Monocytes % (auto) 11.9 %; Neutrophils # (auto) 15.86 K/uL (1.4-6.5); Neutrophils % (auto) 78.9 %; Platelet Count 346 K/uL (130-400); RDW Coefficient of Variation 14.4 % (11.5-14.5); RDW Standard Deviation 44.8 fL (36.4-46.3); Red Blood Count 4.94 M/uL (4.7-6.1); White Blood Count 20.13 K/uL (4.8-10.8)
[2018-07-16 07:20] LABS: Albumin Globulin Ratio 0.5 (0.9-2); BUN Creatinine Ratio 28.3 (10-20); Bilirubin,Total 0.8 mg/dl (0.2-1); Calcium 8.1 mg/dl (8.5-10.1); Creatinine Clr Calc Pharmacy 86.8 ml/min; Est GFR (African American) 61.8; Est GFR (Non-African American) 53.3; Globulin 3.9 gm/dl (2.5-4.0); Magnesium 2.3 mg/dl (1.8-2.4); Phosphorus 4.1 mg/dl (2.5-4.9); Total Protein 5.9 gm/dl (6.4-8.2)
[2018-07-16] MEDS: CARVEDILOL 6.25 MG TAB PO SCH ×2 (07:55→20:25)
[2018-07-16] MEDS: NYSTATIN POWDER 15GM BTL EXT SCH ×2 (07:56→20:24)
[2018-07-16] MEDS: INSULIN ASPART 100 UNITS/ML 3 ML PEN SC SCH ×4 (07:58→21:00)
--- NOTE | 2018-07-16 11:06 | Infectious Disease Progress Nt ---
Date of Service July 16, 2018 Assessment & Plan (1) Cellulitis of left leg: No evidence for necrotizing fasciitis on CT scan however he does have significant cellulitis of the groin extending into the left lower extremity. He will be continued on Zosyn clina and Vanco for now. His leukocytosis has improved somewhat and his lactate has trended down to normal. Blood culture so far negative will continue to follow, suspect he will remain on IV abx through weekend, continue local wound care (2) Cellulitis of groin: Subjective pt seen in followup, states pain in left leg remians. afebrile. wbc decreased to 20.creat improved as well. afebrile overnight. tolerating abx. denies n/v/d/abd pain, no cp, sob, cough, dillon. denies f/c. urine and blood cultures negative to date. Review of Systems Review of Systems: All systems reviewed & are unremarkable except as noted in HPI & below Physical Exam Constitutional: WD/WN, vitals as above Eyes: PERRL, conjunctivae normal, anicteric sclerae ENMT: external ear and nose normal, oropharynx normal Neck: normal visual inspection Respiratory: normal respiratory effort, lungs clear to auscultation Auscultation: + diminished lung sounds Cardiovascular: RRR, no murmur, no edema Gastrointestinal (Abdomen): normal bowel sounds, soft, nontender, no hepatosplenomegaly Musculoskeletal: no cyanosis or clubbing, extremities motor strength 5/5 Skin: + ulcer, + induration and + wound Trauma: + abrasion continued blisters and superficial abrasions lle. + edema, no warmth, tender to palpation Psychiatric: A+Ox3, euthymic affect Affect: + flat affect Results & Data Vital Signs (Past 12 Hours) Vital Signs Temp Pulse Resp BP BP Pulse Ox 07/16/18 10:28 37.5 C 71 24 125/89 96 07/16/18 07:26 36.6 C 74 20 143/97 H 95 07/16/18 03:33 36.6 C 75 24 130/90 95 07/16/18 00:23 36.6 C 76 23 110/75 94 Laboratory Results Microbiology 07/14/18 11:15 Urine,Clean Catch Urine Culture - Preliminary No growth - Less than 1,000 colonies/mL, Final report to follow. 07/14/18 00:12 Blood Blood Culture - Preliminary No growth to date. 07/13/18 23:53 Blood Blood Culture - Preliminary No growth to date.
--- NOTE | 2018-07-16 14:57 | Family Medicine Progress Note ---
Date of Service July 16, 2018 Assessment & Plan (1) Sepsis: 53 y/o M who denies any known medical history presenting with sepsis in the setting of left groin/left leg cellulitis - HR controlled b-elsa, afebrile with leukocytosis improving - lactate trended to normal on 07/14 - NO CT findings concerning for necrotizing fasciitis - Surgery consulted but given lack of fluid collection, recommended - Continue broad spectrum antibiotics (Vanc, Zosyn) - D/C'd IV fluids due to suspicion of fluid overload (2) Cellulitis of left leg: treat as above source of entry possible multiple ulcers vs suspected fungal infection of groin seen by Surgery, no evidence of fluid collection warranting surgical removal or indication for debridement Arterial Doppler reviewed by Jose who reports no evidence of arterial insufficiency, but report chronic venous insufficiency alone pulses were detectable with Doppler at bedside ID consulted, agreed with Vanc , zosyn, but added Clindamycin for antitoxic effect, appreciate recommendations Continue to monitor, daily CBCs Blood cx NGTD (3) Cellulitis of groin: manage as above (4) Polymorphic ventricular tachycardia: no repeat runs of [place] x 1 Continue to monitor daily metabolic panels Started on Coreg, Monitor on telemetry (5) Cardiomyopathy: Echo report findings of severe non-ischemic cardiomyopathy with severely depressed LV function with global hypokinesis unclear etiology Cardiology suspects infiltrative process at play will continue to monitor, no longer on fluids (6) Elevated troponin: per cardiology, ACS unlikely likely due to advanced Cardiomyopathy as described above no EKG changes concerning for ischemia (7) Diabetes mellitus, new onset: Insulin sliding scale ordered Start metformin on discharge Supervising Physician Co-Signing Physician Notes Attending attestation Pt seen and examined in concert with Dr. Sr. In agreement with the documented findings as noted in the resident documentation with any exceptions or additions as noted here. Resting in bed with pain well controlled with present regimen. On examination, diffuse erythema from the scrotum to the foot with diminished erythema but with patchy bullae/blistering and generalised TTP Cellulitis with abnormal arterial doppler - vascular surgery consultation appreciated - continue vancomycin, zosyn and clindamycin. Wound care appreciated. Cardiomyopathy with single episode of polymorphic ventricular tachycardia - cardiology consultation appreciated - continue carvedilol VAUGHN - trend BMP New diagnosis of DMII - continue ISS and start metformin on discharge. Else see resident documentation as noted. Subjective No acute events overnight, Patient denies Lower extremity pain, fevers, chills, n/v, diarrhea Review of Systems Constitutional: no fever, no chills, no fatigue and no weakness Respiratory: no cough, no dyspnea and no wheezing Cardiovascular: + edema; no chest pain and no palpitations Gastrointestinal: no abdominal pain, no nausea, no vomiting and no change in stools Integumentary: redness, swelling, left leg, groin Physical Exam Physical Exam: GENERAL APPEARANCE:obese , alert and cooperative HEAD: normocephalic. EYES: PERRL, EOMI. vision is grossly intact. NECK: Neck supple, non-tender without lymphadenopathy CARDIAC: Normal S1 and S2. No S3, S4 or murmurs. Rhythm is regular LUNGS: Clear to auscultation and percussion without rales, rhonchi, wheezing or diminished breath sounds. ABDOMEN: Positive bowel sounds. Soft, nondistended, nontender. No guarding or rebound. No masses. LOWER EXTREMITY: 2+ edema NEUROLOGICAL: CN II-XII grossly intact. Strength and sensation intact SKIN: left lower extremity: multiple weeping ulcers diffuse warm erythema ( improving) extending from scrotum to the left foot Results & Data Vital Signs (Past 12 Hours) Vital Signs Temp Pulse Resp BP BP Pulse Ox 07/16/18 10:28 37.5 C 71 24 125/89 96 07/16/18 07:26 36.6 C 74 20 143/97 H 95 07/16/18 03:33 36.6 C 75 24 130/90 95 Resident Activity Tracking Resident Involvement: Resident Care Provided Care Provided: Adult Hospital Medicine (1) Sepsis Sepsis type: sepsis due to unspecified organism Qualified Code(s): A41.9 - Sepsis, unspecified organism
[2018-07-16 18:09] LABS: Basophils # (auto) 0.02 K/uL (0-0.2); Basophils % (auto) 0.1 %; Eosinophils % (auto) 2.3 %; Hematocrit (blood only) 42.1 % (42-52); Hemoglobin 14.4 g/dL (14.0-18.0); Immature Granulocytes # (auto) 0.21 K/uL (0.00-0.02); Immature Granulocytes % (auto) 1.2 %; Lymphocytes # (auto) 1.42 K/uL (1.2-3.4); Lymphocytes % (auto) 8.1 %; Mean Corpuscular Hgb Conc 34.2 g/dL (32-36); Mean Corpuscular Volume 85.6 fL (80-100); Mean Platelet Volume 10.9 fL (7.4-10.4); Monocytes % (auto) 13.2 %; Neutrophils % (auto) 75.1 %; Platelet Count 363 K/uL (130-400); RDW Coefficient of Variation 14.4 % (11.5-14.5); RDW Standard Deviation 44.7 fL (36.4-46.3); Red Blood Count 4.92 M/uL (4.7-6.1); White Blood Count 17.45 K/uL (4.8-10.8)
--- NOTE | 2018-07-16 18:50 | Cardiology Progress Note ---
Date of Service July 16, 2018 Assessment & Plan (1) Cardiomyopathy: Unclear etiology. He seems to be tolerating higher dose of Coreg. I think we can administer few more doses before adjusting the dose upwards again. Alternatively, based on his blood pressures we could add low-dose lisinopril. (2) Elevated troponin: Likely related to his cardiomyopathy. I do not believe he suffered a recent acute coronary syndrome. No symptoms of chest discomfort. (3) Polymorphic ventricular tachycardia: No recurrence. On beta-blockade. Subjective The patient did not have report any significant symptoms today. His leg is somewhat sore after manipulation but otherwise no pain. No chest pain. No breathing difficulty. No sense of palpitation. He has not ambulated. Review of Systems Review of Systems: Per HPI Physical Exam Physical Exam: The patient is alert and oriented. Mood and affect appeared normal. He answered all questions appropriately. HEENT: Pupils are equal and reactive to light and accommodation. Extraocular movements are intact. The sclerae are anicteric. Neuro: Cranial nerves intact Lungs: Clear to auscultation bilaterally. He has good air movement without use of accessory muscles. No rales wheezes or rhonchi. Cardiac: Heart demonstrates a regular rate and rhythm. Normal S1 and S2. No murmurs on examination. Pulses: The patient has palpable radial pulses bilaterally that are equal in intensity Results & Data Vital Signs (Past 12 Hours) Vital Signs Temp Pulse Resp BP Pulse Ox 07/16/18 15:29 36.5 C 71 24 126/90 92 07/16/18 10:28 37.5 C 71 24 125/89 96 07/16/18 07:26 36.6 C 74 20 143/97 H 95 Laboratory Results Abnormal Lab Results 07/15/18 07/16/18 07/16/18 19:55 06:21 06:21 WBC 20.13 H RBC 4.94 Hgb 14.5 Hct 42.2 MCV 85.4 MCH 29.4 MCHC 34.4 RDW Std Deviation 44.8 RDW Coeff of Junior 14.4 Plt Count 346 MPV 10.9 H Immature Gran % (Auto) 1.1 Neut % (Auto) 78.9 Lymph % (Auto) 6.5 [place] % (Auto) 11.9 Eos % (Auto) 1.5 Baso % (Auto) 0.1 Immature Gran # (Auto) 0.23 H Neut # (Auto) 15.86 H Lymph # (Auto) 1.30 [place] # (Auto) 2.40 H Eos # (Auto) 0.31 Baso # (Auto) 0.03 Sodium 130 L Potassium 4.0 D Chloride 99 Carbon Dioxide 23 Anion Gap 8.0 BUN 42 H Creatinine 1.47 H Est Cr Clr Drug Dosing 86.8 Est GFR ( Amer) 61.8 Est GFR (Non-Af Amer) 53.3 BUN/Creatinine Ratio 28.3 H Glucose 155 H POC Glucose 158 H Calcium 8.1 L Phosphorus 4.1 Magnesium 2.3 Total Bilirubin 0.8 AST 31 ALT 59 Alkaline Phosphatase 64 Total Protein 5.9 L Albumin 2.0 L Globulin 3.9 Albumin/Globulin Ratio 0.5 L Stool Occult Bld Scrn 07/16/18 07/16/18 07/16/18 07:22 11:21 16:19 WBC RBC Hgb Hct MCV MCH MCHC RDW Std Deviation RDW Coeff of Junior Plt Count MPV Immature Gran % (Auto) Neut % (Auto) Lymph % (Auto) [place] % (Auto) Eos % (Auto) Baso % (Auto) Immature Gran # (Auto) Neut # (Auto) Lymph # (Auto) [place] # (Auto) Eos # (Auto) Baso # (Auto) Sodium Potassium Chloride Carbon Dioxide Anion Gap BUN Creatinine Est Cr Clr Drug Dosing Est GFR ( Amer) Est GFR (Non-Af Amer) BUN/Creatinine Ratio Glucose POC Glucose 157 H 167 H 148 H Calcium Phosphorus Magnesium Total Bilirubin AST ALT Alkaline Phosphatase Total Protein Albumin Globulin Albumin/Globulin Ratio Stool Occult Bld Scrn 07/16/18 07/16/18 16:55 17:36 WBC 17.45 H RBC 4.92 Hgb 14.4 Hct 42.1 MCV 85.6 MCH 29.3 MCHC 34.2 RDW Std Deviation 44.7 RDW Coeff of Junior 14.4 Plt Count 363 MPV 10.9 H Immature Gran % (Auto) 1.2 Neut % (Auto) 75.1 Lymph % (Auto) 8.1 [place] % (Auto) 13.2 Eos % (Auto) 2.3 Baso % (Auto) 0.1 Immature Gran # (Auto) 0.21 H Neut # (Auto) 13.10 H Lymph # (Auto) 1.42 [place] # (Auto) 2.30 H Eos # (Auto) 0.40 Baso # (Auto) 0.02 Sodium Potassium Chloride Carbon Dioxide Anion Gap BUN Creatinine Est Cr Clr Drug Dosing Est GFR ( Amer) Est GFR (Non-Af Amer) BUN/Creatinine Ratio Glucose POC Glucose Calcium Phosphorus Magnesium Total Bilirubin AST ALT Alkaline Phosphatase Total Protein Albumin Globulin Albumin/Globulin Ratio Stool Occult Bld Scrn Positive H ECG Additional Comments: Telemetry did not demonstrate any arrhythmia
[2018-07-16] MEDS ORDERED: PANTOprazole 80 MG in DEXTROSE 5% 100 ML IV SCH (19:30)
[2018-07-16] MEDS: PANTOprazole 40 MG in DEXTROSE 5% 100 ML IV SCH (20:35)
[2018-07-17] MEDS: PANTOprazole 40 MG in DEXTROSE 5% 100 ML IV SCH ×5 (00:44→21:11)
[2018-07-17] MEDS: CLINDAMYCIN 600 MG in DEXTROSE 5% 50 ML IV SCH (04:50)
[2018-07-17] MEDS: HEPARIN SOD 5,000 UNIT/0.5 ML VIAL SQ SCH (05:49)
[2018-07-17] MEDS: PIPERACILLIN/TAZOBACTAM 4.5 GM in DEXTROSE 5% 100 ML IV SCH ×3 (07:32→22:22)
--- NOTE | 2018-07-17 07:39 | Family Medicine Progress Note ---
Date of Service July 17, 2018 Assessment & Plan (1) Sepsis: 53M who denies any known medical history presenting with sepsis in the setting of left groin/left leg cellulitis. Found also to have cardiomyopathy with severely reduced LVEF (25-30%) and severely reduced RVEF - unknown etiology. Cellulitis of left leg and groin seen by Surgery, on CT no evidence of fluid collection warranting surgical removal or indication for debridement Arterial Doppler reviewed by Jose who reports no evidence of arterial insufficiency, but report chronic venous insufficiency alone - recommends compression stockings. ID consulted, agreed with reji Flores, but added Clindamycin for antitoxic effect, MRSA nasal swab negative, consider narrowing, appreciate ID recs regarding this. Blood cx NGTD Polymorphic ventricular tachycardia in setting of cardiomyopathy no repeat runs of [place] x 1 Continue to monitor daily metabolic panels and Mg Started on Coreg, per cards consider Lisinopril ? May need defibrillator due to low EF - Appreciate cardiology recommendations. Cardiomyopathy Echo report findings of severe non-ischemic cardiomyopathy with severely depressed LVEF (25-30%) with global hypokinesis unclear etiology, will order Lyme Ab and Coxsackie Ab (send out) Cardiology suspects infiltrative process at play. will continue to monitor Elevated troponin: per cardiology, ACS unlikely likely due to advanced Cardiomyopathy as described above no EKG changes concerning for ischemia DM2 HBA1C was 7.5. Insulin sliding scale ordered Start metformin on discharge Dispo: Tele, Per PT home w/o needs, this may change based on his conditioning. Social: Doesn't have a PCP, will need a PCP on discharge. FULL CODE (2) Cellulitis of left leg: (3) Cellulitis of groin: (4) Polymorphic ventricular tachycardia: (5) Cardiomyopathy: (6) Elevated troponin: (7) Diabetes mellitus, new onset: Supervising Physician Co-Signing Physician Notes Attending attestation Pt seen and examined in concert with Dr. Morris. In agreement with the documented findings as noted in the resident documentation with any exceptions or additions as noted here. Complaining of mild wheeze in bed with intermittent history of similar usually when first waking from sleep but without other overt lung complaint. On examination, audible upper airway wheeze with little appreciable diffuse wheeze on lung exam which cleared with cough. Re: LE, diffuse erythema from the scrotum to the foot has improved in intensity but bullae and weeping are still appreciated throughout the proximal limb with diffuse TTP Cellulitis with abnormal arterial doppler - ID & vascular surgery consultation appreciated - continue vancomycin, zosyn and clindamycin. Wound care appreciated. Cardiomyopathy with single episode of polymorphic ventricular tachycardia - cardiology consultation appreciated - continue carvedilol HTN - if remains elevated, uptitrate carvedilol v. add lisinopril VAUGHN - downtrending, continue to monitor daily Else see resident documentation as noted. Subjective Pt was seen and examined at bedside. No acute overnight events. He states he has never had a screening colonoscopy. He does not use any aids to walk. Telemetry monitoring showed sinus rhythm. ROS: LE are cold bilaterally, pt states that when his legs are cold they are in pain, otherwise no chest pain, no SOB, no diarrhea, + black stools, no dysuria. Physical Exam Constitutional: WD/WN, vitals as above + morbidly obese; no acute distress and not ill appearing Eyes: PERRL, conjunctivae normal, anicteric sclerae ENMT: external ear and nose normal, oropharynx normal Neck: normal visual inspection Respiratory: normal respiratory effort, lungs clear to auscultation Cardiovascular: RRR, no murmur, no edema Gastrointestinal (Abdomen): normal bowel sounds, soft, nontender, no hepatosplenomegaly Musculoskeletal: no cyanosis or clubbing, extremities motor strength 5/5 Skin: + ulcer (left extremity has multiple abcesses , there is mild erythema in the groin ), + induration and + wound Trauma: + abrasion (multiple in RLE and LLE) Psychiatric: A+Ox3, euthymic affect Orientation: alert and oriented x 3 Results & Data Vital Signs (Past 12 Hours) Vital Signs Temp Pulse Resp BP Pulse Ox 07/17/18 07:27 36.4 C L 69 18 138/91 95 07/17/18 02:45 36.5 C 71 22 136/92 94 07/16/18 23:56 36.6 C 70 20 135/87 97 07/16/18 19:36 36.6 C 75 20 143/106 H 95 Resident Activity Tracking Resident Involvement: Resident Care Provided Care Provided: Adult Hospital Medicine (1) Sepsis Sepsis type: sepsis due to unspecified organism Qualified Code(s): A41.9 - Sepsis, unspecified organism
[2018-07-17] MEDS: INSULIN ASPART 100 UNITS/ML 3 ML PEN SC SCH ×4 (08:22→21:24)
[2018-07-17] MEDS: NYSTATIN POWDER 15GM BTL EXT SCH ×2 (08:25→21:11)
--- NOTE | 2018-07-17 08:49 | History & Physical Report ---
Date of Service July 17, 2018 History of Present Illness Chief Complaint: GI is being consulted per chart review for GI bleed Primary Care Provider: NO PCP 53 yo male admitted a few days ago for cellulitis of the groin. Appears to have been evaluated by surgery to rule out necrotizing fascitis which was ruled out. He also has a cardiomyopathy for which cardiology has been seeing him and one episode of polymorphic ventricular tachycardia. GI is now being requested to see the patient for a GI Bleed. On speaking with the patient this morning, he reports no hematemesis, no melena, no hematochezia. It appears he has not had regular routine follow-up. No GI history of colon cancer or GI issues that he is aware of. Denies dysphagia, belly pain, nausea, vomiting at this time. Allergies Allergy/AdvReac Type Severity Reaction Status Date / Time No Known Allergies Allergy Unverified 07/14/18 02:22 Home Medications Home Medications Medication Instructions Recorded Confirmed Type No Known Home Medications 07/14/18 07/14/18 History Past Med/Surg History Medical History No acute medical problems Social History Communication Ability: Effective Rig Welder Required: No Beliefs That Will Affect Care: None Current Living Situation: Parent Current Living Situation Comment: FATHER Other Information That Helps Us Care for You: No Feels Safe at Home: Yes Safety Concerns: Feels Safe At This Time Smoking Status: Never smoker Hx Alcohol Use: No Hx Substance Use: No Review of Systems All systems reviewed & are unremarkable except as noted in HPI & below Physical Exam Vital Signs (Past 24 Hours): Last Vital Signs Temp 36.4 C L 07/17/18 07:27 Pulse 69 07/17/18 07:27 Resp 18 07/17/18 07:27 BP 138/91 07/17/18 07:27 Pulse Ox 95 07/17/18 07:27 Physical Exam: No acute distress lying in bed Eyes: PERRL, conjunctivae normal, anicteric sclerae Respiratory: normal respiratory effort, lungs clear to auscultation Auscultation: + wheezes Gastrointestinal (Abdomen): normal bowel sounds, soft, nontender, no hepatosplenomegaly Neurologic: PERRL, EOMI, accommodation nl, no face palsy, no dysarthria Results & Data Laboratory Results No new hgb today His hgb appears to be stable and actually no signs of anemia His Bun/Cr are mildly elevated but downtrending Supervising Physician Co-Signing Physician Notes 53 yo male admitted with cellulitis of the groin, with cardiomyopathy and self limited polymorophic ventricular tachycardia. GI now consulted for a GI Bleed. No clinical history of GI Bleed per patient history today. No drop in hgb, his bun/cr are mildly elevated and downtrending but this could be from another source. He is wheezing on exam today and not wanting any type of scope and no clear indication for one at this time. He will require a colonoscopy if not done already but this could be arranged for him as an outpatient once he recovers from his current hospitalization. Thank you for the consult.
[2018-07-17] MEDS ORDERED: VANCOMYCIN TROUGH ONE (09:30)
[2018-07-17] MEDS: CARVEDILOL 6.25 MG TAB PO SCH ×2 (10:04→21:17)
[2018-07-17] MEDS: VANCOMYCIN HCL 1,750 MG in SODIUM CHLORIDE 0.9% 500 ML IV SCH (10:04)
[2018-07-17 10:10] LABS: Basophils # (auto) 0.03 K/uL (0-0.2); Basophils % (auto) 0.2 %; Eosinophils # (auto) 0.38 K/uL (0-0.5); Immature Granulocytes # (auto) 0.21 K/uL (0.00-0.02); Immature Granulocytes % (auto) 1.7 %; Lymphocytes % (auto) 7.9 %; Mean Corpuscular Hgb Conc 33.3 g/dL (32-36); Mean Corpuscular Volume 86.2 fL (80-100); Mean Platelet Volume 10.7 fL (7.4-10.4); Monocytes % (auto) 13.4 %; Neutrophils # (auto) 9.36 K/uL (1.4-6.5); Neutrophils % (auto) 73.8 %; Platelet Count 303 K/uL (130-400); RDW Coefficient of Variation 14.5 % (11.5-14.5); RDW Standard Deviation 45.7 fL (36.4-46.3); Red Blood Count 4.87 M/uL (4.7-6.1); White Blood Count 12.68 K/uL (4.8-10.8)
[2018-07-17 10:38] LABS: Albumin Level 1.9 gm/dl (3.4-5.0); BUN Creatinine Ratio 26.1 (10-20); Calcium 7.9 mg/dl (8.5-10.1); Creatinine Clr Calc Pharmacy 96.6 ml/min; Est GFR (African American) 70.4; Est GFR (Non-African American) 60.7; Potassium 3.8 mmol/L (3.5-5.1)
[2018-07-17 10:50] LABS: Albumin Globulin Ratio 0.5 (0.9-2); Bilirubin,Total 0.7 mg/dl (0.2-1); Phosphorus 3.5 mg/dl (2.5-4.9); Total Protein 5.9 gm/dl (6.4-8.2)
--- NOTE | 2018-07-17 12:36 | Pharmacy Report ---
Pharmacy Abx Dose Short Note - Date of Service July 17, 2018 - Assessment & Plan Assessment * 53 year old M receiving Vancomycin + Zosyn for treatment of extensive L leg cellulitis. * Day # 4 of antimicrobial therapy. * Patient was on Clindamycin for toxin suppression for 2 days; now discontinued. Laboratory Tests 07/17/18 09:38 Vancomycin Trough 20.3 Plan Vancomycin * Trough level of 20.3 mcg/mL is therapeutic but at the high end of the goal trough range (15 - 20 mcg/ml). * Allowed patient to get the dose at 1000 AM today after trough was drawn but then changed dosing to Vancomycin 1750 mg IV every 20 hours. * Patient's BMI = 40.6 which means he may be accumulating Vancomycin if continued at current dosing. Therefore extended interval out to Q 20 hrs. * Trough level ordered for: 07/20/18 before dose at 1800. Pharmacy will continue to follow and will adjust dose/frequency as necessary. Thank you.
[2018-07-18] MEDS: PANTOprazole 40 MG in DEXTROSE 5% 100 ML IV SCH ×5 (02:14→22:16)
[2018-07-18] MEDS: VANCOMYCIN HCL 1,750 MG in SODIUM CHLORIDE 0.9% 500 ML IV SCH (05:13)
[2018-07-18 06:17] LABS: Basophils # (auto) 0.03 K/uL (0-0.2); Basophils % (auto) 0.2 %; Eosinophils # (auto) 0.52 K/uL (0-0.5); Eosinophils % (auto) 3.5 %; Hematocrit (blood only) 40.7 % (42-52); Hemoglobin 13.6 g/dL (14.0-18.0); Immature Granulocytes # (auto) 0.35 K/uL (0.00-0.02); Immature Granulocytes % (auto) 2.4 %; Lymphocytes # (auto) 1.56 K/uL (1.2-3.4); Lymphocytes % (auto) 10.5 %; Mean Corpuscular Hgb Conc 33.4 g/dL (32-36); Mean Corpuscular Volume 85.9 fL (80-100); Mean Platelet Volume 10.7 fL (7.4-10.4); Monocytes # (auto) 2.38 K/uL (0.11-0.59); Neutrophils # (auto) 10.05 K/uL (1.4-6.5); Neutrophils % (auto) 67.4 %; Platelet Count 336 K/uL (130-400); RDW Coefficient of Variation 14.3 % (11.5-14.5); RDW Standard Deviation 44.8 fL (36.4-46.3); Red Blood Count 4.74 M/uL (4.7-6.1); White Blood Count 14.89 K/uL (4.8-10.8)
[2018-07-18] MEDS: PIPERACILLIN/TAZOBACTAM 4.5 GM in DEXTROSE 5% 100 ML IV SCH ×3 (06:17→23:12)
[2018-07-18 06:54] LABS: BUN Creatinine Ratio 22.8 (10-20); Bilirubin,Total 0.7 mg/dl (0.2-1); Est GFR (African American) 69.7; Est GFR (Non-African American) 60.2; Magnesium 2.3 mg/dl (1.8-2.4); Potassium 3.8 mmol/L (3.5-5.1)
[2018-07-18 06:55] LABS: Albumin Globulin Ratio 0.5 (0.9-2)
[2018-07-18 07:07] LABS: Lyme Ab IgG w/WB Rflx Negative (Negative); Lyme Ab IgM w/WB Rflx Negative (Negative)
[2018-07-18] MEDS: INSULIN ASPART 100 UNITS/ML 3 ML PEN SC SCH ×4 (08:19→21:09)
[2018-07-18] MEDS: CARVEDILOL 6.25 MG TAB PO SCH ×2 (08:19→21:09)
[2018-07-18] MEDS: NYSTATIN POWDER 15GM BTL EXT SCH ×2 (08:19→21:09)
--- NOTE | 2018-07-18 09:50 | Family Medicine Progress Note ---
Date of Service July 18, 2018 Assessment & Plan (1) Sepsis: 53M who denies any known medical history presenting with sepsis in the setting of left groin/left leg cellulitis. Found also to have cardiomyopathy with severely reduced LVEF (25-30%) and severely reduced RVEF - unknown etiology. Coxsackie Ab pending. Cellulitis of left leg and groin seen by Surgery, on CT no evidence of fluid collection warranting surgical removal or indication for debridement Arterial Doppler reviewed by Jose who reports no evidence of arterial insufficiency, but report chronic venous insufficiency alone - recommends compression stockings. ID consulted, agreed with Vanc , zosyn, but added Clindamycin for antitoxic effect, MRSA nasal swab negative, consider narrowing, appreciate ID recs regarding this. 07/18/18 - ordering wound cultures and X-ray of the LE , X-ray did not show evidence of osteo. Blood culture negative. Follow up wound cultures. Cardiomyopathy, Acute vs Chronic? Lack of medical care makes the acute vs chronic diagnosis difficult. May be from vascular heart disease. Echo report findings of severe non-ischemic cardiomyopathy with severely depressed LVEF (25-30%) with global hypokinesis. Lyme Ab negative and Coxsackie Ab pending (send out) Cardiology on board. 10 second run of Polymorphic ventricular tachycardia in setting of cardiomyopathy no repeat runs of [place] in 48hrs Started on Coreg, per cards consider Lisinopril ? May need defibrillator due to low EF at some point in future or cath. Mg within normal limits. Elevated troponin: per cardiology, ACS unlikely likely due to advanced Cardiomyopathy as described above no EKG changes concerning for ischemia DM2 HBA1C was 7.5. Insulin sliding scale ordered Start metformin on discharge With X-ray results, consideration for possible left Charcot's foot. Dispo: Tele, Per PT home w/o needs, this will likely change based on his conditioning. Social: Doesn't have a PCP, will need a PCP on discharge. FULL CODE (2) Cellulitis of left leg: (3) Cellulitis of groin: (4) Polymorphic ventricular tachycardia: (5) Cardiomyopathy: (6) Elevated troponin: (7) Diabetes mellitus, new onset: Supervising Physician Co-Signing Physician Notes Attending attestation Pt seen and examined in concert with Dr. Morris. In agreement with the documented findings as noted in the resident documentation with any exceptions or additions as noted here. 53 y/o male without routine medical evaluation previous to admission p/w diffuse LLE cellulitis from scrotum to distal foot. Feeling gradually improved pain of the LLE with persistent drainage and peeling. On examination, minimal wheezing at this time, somewhat improved LE, diffuse erythema from the scrotum to the foot with weeping and peeling. S1/S2 nl RRR no MCG Cellulitis with abnormal arterial doppler - ID & vascular surgery consultation appreciated - mild bump in WBC today without clinical concern. Continue vancomycin, zosyn and clindamycin. Wound care appreciated. DMII, new dx - A1c 7.5% - Glycemic consultation Cardiomyopathy with single episode of polymorphic ventricular tachycardia - cardiology consultation appreciated - continue carvedilol HTN - if elevated, uptitrate carvedilol v. add lisinopril VAUGHN - stable, monitor Else see resident documentation as noted. Subjective Pt was seen and examined at bedside. No acute overnight events. Telemetry monit oring showed sinus rhythm in the 60s. States his LE are no longer cold. Has no complaints. Pooping and eating. cannot walk due to left foot pain. ROS: No chest pain, no SOB, no dyspnea on exertion, no palpitations, no fevers, no chills, no nausea, no vomiting, no diarrhea, no dysuria, no rash. Physical Exam Constitutional: WD/WN, vitals as above + morbidly obese; no acute distress and not ill appearing Eyes: PERRL, conjunctivae normal, anicteric sclerae ENMT: external ear and nose normal, oropharynx normal Neck: normal visual inspection Respiratory: normal respiratory effort, lungs clear to auscultation Cardiovascular: RRR, no murmur, no edema Gastrointestinal (Abdomen): normal bowel sounds, soft, nontender, no hepatosplenomegaly Musculoskeletal: no cyanosis or clubbing, extremities motor strength 5/5 Skin: + ulcer (left extremity has multiple abcesses , there is mild erythema in the groin ), + induration (slight improvement from previous day) and + wound Trauma: + abrasion (multiple in RLE and LLE) Psychiatric: A+Ox3, euthymic affect Orientation: alert and oriented x 3 (kn ows year, [place] Results & Data Vital Signs (Past 12 Hours) Vital Signs Temp Pulse Resp BP Pulse Ox 07/18/18 07:00 36.5 C 71 18 144/93 H 95 07/18/18 03:35 36.4 C L 69 16 154/108 H 92 07/17/18 23:17 36.5 C 70 16 125/84 97 Resident Activity Tracking Resident Involvement: Resident Care Provided Care Provided: Adult Hospital Medicine (1) Sepsis Sepsis type: sepsis due to unspecified organism Qualified Code(s): A41.9 - Sepsis, unspecified organism
--- NOTE | 2018-07-18 11:11 | XRay Report ---
XR foot LT min 3V routine HISTORY: 53 years-old Male eval for osteomyelitis acute left foot pain and swelling COMPARISON: None available TECHNIQUE: 3 views of the left leg FINDINGS: Healed chronic fracture deformity about the fifth metatarsal. There is moderate soft tissue swelling about the foot and lower leg. Moderate degenerative changes about the midfoot with marginal spurring of the calcaneus and tibiotalar joint. No acute fracture, dislocation or erosive changes to suggest a cute osteomyelitis. Mild general changes about the first MTP joint. There is mild cortical thickening noted about the medial cortex of the mid fourth metatarsal. IMPRESSION: 1. Moderate soft tissue prominence of the lower leg and foot without acute fracture, dislocation or d efinite erosive changes. 2. Healed remote fracture deformity of the fifth metatarsal. 3. Degenerative changes as above. 4. There is mild cortical thickening noted about the fourth metatarsal medial cortex which may reflec t healing stress fracture. The above report was generated using voice recognition software. It may contain grammatical, syntax o r spelling errors. Electronically signed by: Raimundo Appiah M.D. 07/18/2018 11:09 AM
[2018-07-19] MEDS: VANCOMYCIN HCL 1,750 MG in SODIUM CHLORIDE 0.9% 500 ML IV SCH ×2 (02:04→21:35)
[2018-07-19] MEDS: PANTOprazole 40 MG in DEXTROSE 5% 100 ML IV SCH ×3 (02:51→14:41)
[2018-07-19 06:10] LABS: Basophils # (auto) 0.02 K/uL (0-0.2); Basophils % (auto) 0.1 %; Eosinophils # (auto) 0.37 K/uL (0-0.5); Eosinophils % (auto) 2.7 %; Hematocrit (blood only) 40.9 % (42-52); Hemoglobin 13.5 g/dL (14.0-18.0); Immature Granulocytes # (auto) 0.28 K/uL (0.00-0.02); Immature Granulocytes % (auto) 2.1 %; Lymphocytes # (auto) 1.14 K/uL (1.2-3.4); Lymphocytes % (auto) 8.4 %; Mean Corpuscular Volume 87.2 fL (80-100); Mean Platelet Volume 10.3 fL (7.4-10.4); Monocytes # (auto) 2.11 K/uL (0.11-0.59); Monocytes % (auto) 15.6 %; Neutrophils # (auto) 9.58 K/uL (1.4-6.5); Neutrophils % (auto) 71.1 %; Platelet Count 331 K/uL (130-400); RDW Coefficient of Variation 14.4 % (11.5-14.5); RDW Standard Deviation 45.6 fL (36.4-46.3); Red Blood Count 4.69 M/uL (4.7-6.1)
[2018-07-19 06:52] LABS: BUN Creatinine Ratio 16.8 (10-20); Creatinine Clr Calc Pharmacy 84.6 ml/min; Est GFR (African American) 59.3; Est GFR (Non-African American) 51.2; Magnesium 2.2 mg/dl (1.8-2.4); Potassium 4.1 mmol/L (3.5-5.1)
[2018-07-19 06:54] LABS: Albumin Globulin Ratio 0.5 (0.9-2); Bilirubin,Total 0.7 mg/dl (0.2-1); Globulin 4.3 gm/dl (2.5-4.0); Total Protein 6.3 gm/dl (6.4-8.2)
[2018-07-19] MEDS: PIPERACILLIN/TAZOBACTAM 4.5 GM in DEXTROSE 5% 100 ML IV SCH ×3 (08:32→21:35)
[2018-07-19] MEDS: INSULIN ASPART 100 UNITS/ML 3 ML PEN SC SCH ×4 (08:34→21:27)
[2018-07-19] MEDS: NYSTATIN POWDER 15GM BTL EXT SCH ×2 (08:35→21:06)
[2018-07-19] MEDS: CARVEDILOL 6.25 MG TAB PO SCH (08:35)
[2018-07-19] MEDS ORDERED: CARVEDILOL 6.25 MG TAB PO ONE (09:43)
--- NOTE | 2018-07-19 09:47 | Cardiology Progress Note ---
Date of Service July 19, 2018 Assessment & Plan (1) Cardiomyopathy: Unclear etiology. Will increase his carvedilol to day and look toward adding lisinopril in the near future. Renal function slightly decline today. (2) Elevated troponin: Likely related to his cardiomyopathy. I do not believe he suffered a recent acute coronary syndrome. No symptoms of chest discomfort. (3) Polymorphic ventricular tachycardia: No recurrence. On beta-blockade. Subjective Patient reports some discomfort at the leg with manipulation, otherwise no significant pain. He denies significant breathing difficulty. He has not really been ambulatory out of bed since his hospitalization began. Review of Systems Review of Systems: Per HPI Physical Exam Physical Exam: The patient is alert and oriented. Mood and affect appeared normal. He answered all questions appropriately. HEENT: Pupils are equal and reactive to light and accommodation. Extraocular movements are intact. The sclerae are anicteric. Neuro: Cranial nerves intact Lungs: Clear to auscultation bilaterally. He has good air movement without use of accessory muscles. No rales wheezes or rhonchi. Cardiac: Heart demonstrates a regular rate and rhythm. Normal S1 and S2. No murmurs on examination. Results & Data Vital Signs (Past 12 Hours) Vital Signs Temp Pulse Resp BP BP Pulse Ox 07/19/18 07:08 36.6 C 71 24 155/106 H 95 07/19/18 04:02 36.6 C 71 21 149/94 H 96 07/18/18 23:24 36.7 C 82 21 152/101 H 97 Laboratory Results Abnormal Lab Results 07/18/18 07/18/18 07/18/18 11:12 16:36 20:21 WBC RBC Hgb Hct MCV MCH MCHC RDW Std Deviation RDW Coeff of Junior Plt Count MPV Immature Gran % (Auto) Neut % (Auto) Lymph % (Auto) Collin % (Auto) Eos % (Auto) Baso % (Auto) Immature Gran # (Auto) Neut # (Auto) Lymph # (Auto) Collin # (Auto) Eos # (Auto) Baso # (Auto) Sodium Potassium Chloride Carbon Dioxide Anion Gap BUN Creatinine Est Cr Clr Drug Dosing Est GFR ( Amer) Est GFR (Non-Af Amer) BUN/Creatinine Ratio Glucose POC Glucose 187 H 116 H 155 H Calcium Magnesium Total Bilirubin AST ALT Alkaline Phosphatase Total Protein Albumin Globulin Albumin/Globulin Ratio 04/07/19/18 07/19/18 05:43 05:43 07:20 WBC 13.50 H RBC 4.69 L Hgb 13.5 L Hct 40.9 L MCV 87.2 MCH 28.8 MCHC 33.0 RDW Std Deviation 45.6 RDW Coeff of Junior 14.4 Plt Count 331 MPV 10.3 Immature Gran % (Auto) 2.1 Neut % (Auto) 71.1 Lymph % (Auto) 8.4 Collin % (Auto) 15.6 Eos % (Auto) 2.7 Baso % (Auto) 0.1 Immature Gran # (Auto) 0.28 H Neut # (Auto) 9.58 H Lymph # (Auto) 1.14 L Collin # (Auto) 2.11 H Eos # (Auto) 0.37 Baso # (Auto) 0.02 Sodium 135 L Potassium 4.1 Chloride 102 Carbon Dioxide 28 Anion Gap 5.0 BUN 25 H Creatinine 1.52 H Est Cr Clr Drug Dosing 84.6 Est GFR ( Amer) 59.3 Est GFR (Non-Af Amer) 51.2 BUN/Creatinine Ratio 16.8 Glucose 127 H POC Glucose 120 H Calcium 8.0 L Magnesium 2.2 Total Bilirubin 0.7 AST 31 ALT 42 Alkaline Phosphatase 63 Total Protein 6.3 L Albumin 2.0 L Globulin 4.3 H Albumin/Globulin Ratio 0.5 L
--- NOTE | 2018-07-19 10:39 | Infectious Disease Progress Nt ---
Date of Service July 19, 2018 Assessment & Plan (1) Cellulitis of left leg: wll continue IV abx for now, pending final wound culture results. will restart clinda. blood cultures negative. continue local wound care. (2) Cellulitis of groin: Subjective gcs strep growing from wound culture, final sensitivities pending pt seen in follow, remains on IV abx, clinda stopped. afebrile. wbc continues to improve, 13.5 today, creat improved as well. complains of discomfort in LLE, improving, denies f/c. no cp, sob, cough, no n/v/d/abd pain. lethargic but answers questions. wound culture of foot with gpc on gram stain, pending, blood cultures remain negative. foot x ray negative for osteo. many open superficial blisters remain, no weeping or drainage. afebrile. Review of Systems Review of Systems: All systems reviewed & are unremarkable except as noted in HPI & below Physical Exam Constitutional: WD/WN, vitals as above Eyes: PERRL, conjunctivae normal, anicteric sclerae ENMT: external ear and nose normal, oropharynx normal Neck: normal visual inspection Respiratory: normal respiratory effort, lungs clear to auscultation Auscultation: + diminished lung sounds Cardiovascular: RRR, no murmur, no edema Gastrointestinal (Abdomen): normal bowel sounds, soft, nontender, no hepa tosplenomegaly Musculoskeletal: no cyanosis or clubbing, extremities motor strength 5/5 Skin: + ulcer, + induration and + wound Trauma: + abrasion less erythema today, still with edema and tenderness, improving. Psychiatric: A+Ox3, euthymic affect Affect: + flat affect Results & Data Vital Signs (Past 12 Hours) Vital Signs Temp Pulse Resp BP BP Pulse Ox 07/19/18 07:08 36.6 C 71 24 155/106 H 95 07/19/18 04:02 36.6 C 71 21 149/94 H 96 07/18/18 23:24 36.7 C 82 21 152/101 H 97 Laboratory Results Microbiology 07/18/18 11:35 Groin Gram Stain - Final 07/18/18 11:35 Groin Wound Culture - Preliminary Group C Beta Strep 07/14/18 00:12 Blood Blood Culture - Final No growth 07/13/18 23:53 Blood Blood Culture - Final No growth 07/14/18 11:15 Urine,Clean Catch Urine Culture - Final No growth - less than 1,000 colonies/mL.
--- NOTE | 2018-07-19 11:01 | Family Medicine Progress Note ---
Date of Service July 19, 2018 Assessment & Plan (1) Cellulitis of groin: 53-year-old male was admitted on 14 July 2018 for erythema and pain extending from his lower abdomen, inguinal region, and down his left leg. Cellulitis of groin and left leg: No clear evidence of Fourniers gangrene or necrotizing fasciitis on imaging. May be due to multiple ulcers vs additional fungal infection. 24Apr started on vancomycin, Zosyn, and topical nystatin. See related surgical and infectious disease notes. Briefly on clindamycin as well. 24Apr BCx NGTD. 28Apr wound culture grew Group C Strep (sensitivities pending). Left foot x-ray suggestive of healing remote fifth metatarsal fracture, degenerative changes, and possible healing stress fracture of the fourth metatarsal (no evidence of osteomyelitis). - ID added back clindamycin. Left lower extremity chronic venous insufficiency: 24Apr left leg arterial Doppler u/s was suggestive of possible arterial occlusion. Vascular surgery consulted, see related notes. No role for surgery at this time. Wound care consulted, applying local dressings. Consider compression stockings to help with edema once weeping improves. Elevated troponin, cardiomyopathy: 24Apr TTE noted EF 25-30%, mild LVH, severe LVSF reduction, severe LV global hypokinesis. Lyme IgG negative. Coxsackie labs pending. See related cardiology notes. 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 Started on Coreg. Prescribed JOSH-I as ou tpatient but probably was not taking it. Consider re-adding here. - Cardiology increased coreg dose. - Will also add Entresto (low dose initially). Polymorphic ventricular tachycardia: Asymptomatic 10 second run. Started on coreg as above. Monitoring electrolytes. Acute kidney injury: Admit Cr 1.71 with unknown baseline. IV fluids provided. 24Apr UCx no growth (final). - Will provide continued judicious IVF. Ordered urine Cr and Na with morning labs. Hyperglycemia: 24Apr A1c 7.5, new diagnosis of DM. On insulin sliding scale here. Plan to start metformin 500 mg BID at discharge. DM educator involved, appreciate the patient education. Elevated LFTs: Mildly elevated AST & ALT on admit, both resolved. Hypoalbuminemia: Albumin as low as 1.9. Positive hemoccult: On 26Apr. Hb stable in 14s. See related GI note. Recommended outpatient colonoscopy when medically more stable, perhaps in the next 4-8 weeks. Ongoing medical issues: - Obesity: BMI 41. Suspect COREY as well. Would benefit from outpatient workup. - Diverticulosis: As seen on 24Apr CT pelvis. Code status: Full code, but need to clarify this with patient. Diet: Heart healthy, carb consistent. DVT prophy: Will restart Heparin BID. PT/OT: PT consulted, no acute needs identified. Disbo: Admitted to PCU telemetry. (2) Cellulitis of left leg: (3) Chronic venous insufficiency: (4) Elevated troponin: (5) Cardiomyopathy: (6) Polymorphic ventricular tachycardia: (7) Acute kidney injury: (8) Diabetes mellitus, new onset: (9) Elevated LFTs: (10) Hypoalbuminemia: (11) Obesity: (12) Diverticulosis: Supervising Physician Co-Signing Physician Notes I personally examined the patient and verified all cuenca points of history and exam, discussed case, and agree with decision making with Dr Griffiths. Feeling okay. Leg improving. No notable breathing issues. Vitals noted, in general he is awake alert pleasant no distress. HEENT normocephalic atraumatic extra movements are moist. Breathing is unlabored no accessory muscle use good effort. Skin shows no pallor or icterus, his lower extremity left lower extremity shows diffuse areas of blistering but may be only very dull mild erythema in his groin, significant amounts of chronic venous stasis type changes as well. No crepitus. Left lower extremity cellulitisimproving. Continue antibiotics, ID added clindamycin for antitoxin effect, continue to follow. Cardiomyopathy/systolic CHFcurrently appears to be compensated without signs of pulmonary edema. He is tolerating Coreg well, give trial of Entresto (follow kidney function). Given the uncertain etiology of this, he will likely benefit from ischemic testing once he is in a more stable state. Currently even if it was an ischemic cardiomyopathy does not appear to have any instability/unstable angina etc. Elevated creatinineuncertain baseline. Continue to follow closely. May be a degree of prerenal state, versus cardiorenal, versus baseline because of his heart. Follow with initiation of Entresto Type 2 diabetescontinue current management DVT prophylaxisheparin subcu (related of heme positive stools, he has shown no signs of true GI blood losses, and given his CHF/BMI/immobility, his risk of forming DVT certainly outweighs the risk of any potential exenteration of mild blood loss related to the subcu heparin) Subjective Found patient resting comfortably in bed. He appears somnolent at times, responding to questions with single-word answers and not volunteering information. Denies any current concerns or focal pains. Says 'yes' when asked if he thinks his rash is improving and says it is not painful. Physical Exam Physical Exam: General Appearance: Awake but somnolent at times, comfortable in general, NAD. CV: +S1S2 RRR, no murmur. Pulm: Clear to auscultation throughout. Abdomen: +BS, soft, non-tender, non-distended. Coles catheter in place. Extremities: - The left lower extremity has some generalized edema with multiple areas of broken blisters and less-so smaller ulcerations. The left inguinal region and left inner thigh is generally erythematous but not warm to touch or ttp. - The right lower extremity has multiple scattered ulcerations without blistering or noted focal erythema. Neuro: No gross neuro deficits. Results & Data Vital Signs (Past 12 Hours) Vital Signs Temp Pulse Resp BP BP Pulse Ox 07/19/18 07:08 36.6 C 71 24 155/106 H 95 07/19/18 04:02 36.6 C 71 21 149/94 H 96 07/18/18 23:24 36.7 C 82 21 152/101 H 97 Laboratory Results 07/19/18 07/19/18 07/19/18 Range/Units 07:20 05:43 05:43 WBC 13.50 H (4.8-10.8) K/uL RBC 4.69 L (4.7-6.1) M/uL Hgb 13.5 L (14.0-18.0) g/dL Hct 40.9 L (42-52) % MCV 87.2 (80-100) fL MCH 28.8 (25-34) pg MCHC 33.0 (32-36) g/dL RDW Std Deviation 45.6 (36.4-46.3) fL RDW Coeff of Junior 14.4 (11.5-14.5) % Plt Count 331 (130-400) K/uL MPV 10.3 (7.4-10.4) fL Immature Gran % (Auto) 2.1 % Neut % (Auto) 71.1 % Lymph % (Auto) 8.4 % Stone % (Auto) 15.6 % Eos % (Auto) 2.7 % Baso % (Auto) 0.1 % Immature Gran # (Auto) 0.28 H (0.00-0.02) K/uL Neut # (Auto) 9.58 H (1.4-6.5) K/uL Lymph # (Auto) 1.14 L (1.2-3.4) K/uL [place] # (Auto) 2.11 H (0.11-0.59) K/uL Eos # (Auto) 0.37 (0-0.5) K/uL Baso # (Auto) 0.02 (0-0.2) K/uL Sodium 135 L (136-145) mmol/L Potassium 4.1 (3.5-5.1) mmol/L Chloride 102 (98-107) mmol/L Carbon Dioxide 28 (21-32) mmol/L Anion Gap 5.0 (3-11) BUN 25 H (7-18) mg/dl Creatinine 1.52 H (0.6-1.4) mg/dl Est Cr Clr Drug Dosing 84.6 ml/min Est GFR ( Amer) 59.3 Est GFR (Non-Af Amer) 51.2 BUN/Creatinine Ratio 16.8 (10-20) Glucose 127 H (70-99) mg/dl POC Glucose 120 H (70-99) Calcium 8.0 L (8.5-10.1) mg/dl Magnesium 2.2 (1.8-2.4) mg/dl Total Bilirubin 0.7 (0.2-1) mg/dl AST 31 (15-37) U/L ALT 42 (12-78) U/L Alkaline Phosphatase 63 (45-117) U/L Total Protein 6.3 L (6.4-8.2) gm/dl Albumin 2.0 L (3.4-5.0) gm/dl Globulin 4.3 H (2.5-4.0) gm/dl Albumin/Globulin Ratio 0.5 L (0.9-2) 07/18/18 07/18/18 07/18/18 Range/Units 20:21 16:36 11:12 WBC (4.8-10.8) K/uL RBC (4.7-6.1) M/uL Hgb (14.0-18.0) g/dL Hct (42-52) % MCV (80-100) fL MCH (25-34) pg MCHC (32-36) g/dL RDW Std Deviation (36.4-46.3) fL RDW Coeff of Junior (11.5-14.5) % Plt Count (130-400) K/uL MPV (7.4-10.4) fL Immature Gran % (Auto) % Neut % (Auto) % Lymph % (Auto) % [place] % (Auto) % Eos % (Auto) % Baso % (Auto) % Immature Gran # (Auto) (0.00-0.02) K/uL Neut # (Auto) (1.4-6.5) K/uL Lymph # (Auto) (1.2-3.4) K/uL [place] # (Auto) (0.11-0.59) K/uL Eos # (Auto) (0-0.5) K/uL Baso # (Auto) (0-0.2) K/uL Sodium (136-145) mmol/L Potassium (3.5-5.1) mmol/L Chloride (98-107) mmol/L Carbon Dioxide (21-32) mmol/L Anion Gap (3-11) BUN (7-18) mg/dl Creatinine (0.6-1.4) mg/dl Est Cr Clr Drug Dosing ml/min Est GFR ( Amer) Est GFR (Non-Af Amer) BUN/Creatinine Ratio (10-20) Glucose (70-99) mg/dl POC Glucose 155 H 116 H 187 H (70-99) Calcium (8.5-10.1) mg/dl Magnesium (1.8-2.4) mg/dl Total Bilirubin (0.2-1) mg/dl AST (15-37) U/L ALT (12-78) U/L Alkaline Phosphatase (45-117) U/L Total Protein (6.4-8.2) gm/dl Albumin (3.4-5.0) gm/dl Globulin (2.5-4.0) gm/dl Albumin/Globulin Ratio (0.9-2) Medications Administered Current Inpatient Medications Acetaminophen (Tylenol) 650 mg PO Q4H PRN PRN Reason: Pain or Fever Stop: 08/13/18 05:31 Al Hydrox/Mg Hydrox/Simethicone (Maalox) 15 ml PO Q4H PRN PRN Reason: Dyspepsia Stop: 08/13/18 05:31 Calcium Carbonate (Tums) 1,500 mg PO QID PRN PRN Reason: Indigestion Stop: 08/14/18 08:43 Carvedilol (Coreg) 12.5 mg PO BID [facility] Stop: 08/18/18 20:59 Clindamycin HCl (Cleocin) 300 mg PO TID [facility] Stop: 07/29/18 13:59 Dextrose (Dextrose 50%) 25 - 50 ml IV UD PRN; Protocol PRN Reason: Hypoglycemia Protocol Stop: 08/14/18 09:37 Glucagon (Glucagen) 1 mg SQ UD PRN; Protocol PRN Reason: Hypoglycemia Protocol Stop: 08/14/18 09:37 Glucose (Glucose 40%) 15 - 30 gm PO UD PRN; Protocol PRN Reason: Hypoglycemia Protocol Stop: 08/14/18 09:37 Glucose (Dex4 Glucose) 4 - 8 tabs PO UD PRN; Protocol PRN Reason: Hypoglycemia Protocol Stop: 08/14/18 09:37 Piperacillin Sod/Tazobactam (Sod 4.5 gm/ Dextrose) 120 mls @ 30 mls/hr IV Q8H [facility] Stop: 07/24/18 06:59 Last Admin: 07/19/18 08:32 Dose: 30 mls/hr Documented by: Pantoprazole Sodium 40 mg/ (Dextrose) 100 mls @ 20 mls/hr IV Q5H [facility] Stop: 08/15/18 19:59 Last Admin: 07/19/18 09:08 Dose: 20 mls/hr Documented by: Vancomycin HCl 1,750 mg/ (Sodium Chloride) 535 mls @ 200 mls/hr IV Q20H [facility]; Protocol Stop: 07/24/18 12:00 Last Infusion: 07/19/18 05:13 Dose: Infused Documented by: Insulin Aspart (Novolog Flexpen) 0 units SC ACHS [facility] Stop: 08/14/18 11:29 Last Admin: 07/19/18 08:34 Dose: 16 units Documented by: Magnesium Hydroxide (Milk Of Magnesia) 30 ml PO Q12H PRN PRN Reason: Constipation Stop: 08/13/18 05:31 Miscellaneous (Carbohydrates For Hypoglycemia) 15 - 30 gm PO UD PRN PRN Reason: Hypoglycemia Treatment Stop: 08/14/18 09:37 Miscellaneous Information (Consult) 1 ea N/A UD PRN PRN Reason: Consult Stop: 08/13/18 05:31 Miscellaneous Information (Consult) 1 ea N/A UD PRN PRN Reason: Consult Stop: 08/13/18 05:31 Nystatin (Mycostatin) 1 appln EXT BID [facility] Stop: 08/13/18 08:59 Last Admin: 07/19/18 08:35 Dose: 1 appln Documented by: Ondansetron HCl (Zofran) 4 mg IV Q6H PRN PRN Reason: Nausea Stop: 08/13/18 05:31 Polyethylene Glycol (Miralax Powder Packet) 17 gm PO DAILY PRN PRN Reason: Constipation Stop: 08/13/18 05:31 Zolpidem Tartrate (Ambien) 5 mg PO HS PRN PRN Reason: Sleep Stop: 08/13/18 05:31 Resident Activity Tracking Resident Involvement: Resident Care Provided Care Provided: Adult Hospital Medicine
[2018-07-19] MEDS: CLINDAMYCIN HCL 150 MG CAP PO SCH ×2 (14:48→21:01)
[2018-07-19] MEDS: SODIUM CHLORIDE 0.9% 1000ML 1,000 ML IV SCH (17:22)
--- OUTSIDE RECORDS SUMMARY | 2018-07-19 19:43 | External Medical Summary | Continuity of Care Document ---
:1965 Author Name Jony Faulkner Address Unavailable Unavailable , Care Team Providers Name Role Phone Irvin PORTILLO Unavailable [email or web address] Unavailable Unavailable Problems Active medical history not documented Allergies and Adverse Reactions Allergy history not documented Medications Medications not documented Procedures Procedures not documented Immunizations Immunizations not documented Plan of Treatment Planned Encounters Appointment; Shawna Bryan CRNP Start: 27-Jul-2018 9:30 Req uest Planned Observations Planned Goals not documented Results No Known Results Results not documented Encounters Appointment; Shawna Bryan CRNP 27-Jul-2018 9:30 Encounter Diagnosis: Problem not documented
[2018-07-19] MEDS: CARVEDILOL 12.5 MG TAB PO SCH (21:03)
[2018-07-19] MEDS: HEPARIN SOD 5,000 UNIT/0.5 ML VIAL SQ SCH (21:06)
[2018-07-19] MEDS: SACUBITRIL-VALSARTAN 24-26 MG TAB PO SCH (21:53)
[2018-07-20 05:46] LABS: Basophils # (auto) 0.03 K/uL (0-0.2); Basophils % (auto) 0.2 %; Eosinophils # (auto) 0.24 K/uL (0-0.5); Eosinophils % (auto) 1.9 %; Hematocrit (blood only) 42.5 % (42-52); Immature Granulocytes # (auto) 0.27 K/uL (0.00-0.02); Immature Granulocytes % (auto) 2.2 %; Mean Corpuscular Hgb Conc 32.9 g/dL (32-36); Mean Corpuscular Volume 87.1 fL (80-100); Monocytes # (auto) 1.68 K/uL (0.11-0.59); Monocytes % (auto) 13.4 %; Neutrophils # (auto) 9.29 K/uL (1.4-6.5); Neutrophils % (auto) 74.3 %; Platelet Count 302 K/uL (130-400); RDW Coefficient of Variation 14.3 % (11.5-14.5); RDW Standard Deviation 45.6 fL (36.4-46.3); Red Blood Count 4.88 M/uL (4.7-6.1); White Blood Count 12.51 K/uL (4.8-10.8)
[2018-07-20 06:25] LABS: BUN Creatinine Ratio 14.3 (10-20); Creatinine Clr Calc Pharmacy 87.4 ml/min; Est GFR (African American) 61.8; Est GFR (Non-African American) 53.3; Potassium 4.1 mmol/L (3.5-5.1)
[2018-07-20] MEDS: PIPERACILLIN/TAZOBACTAM 4.5 GM in DEXTROSE 5% 100 ML IV SCH ×3 (06:29→23:09)
[2018-07-20 07:00] LABS: Creatinine Urine Random 14.6 mg/dl
[2018-07-20] MEDS: SODIUM CHLORIDE 0.9% 1000ML 1,000 ML IV SCH (08:00)
[2018-07-20] MEDS: CARVEDILOL 12.5 MG TAB PO SCH ×2 (08:01→20:37)
[2018-07-20] MEDS: SACUBITRIL-VALSARTAN 24-26 MG TAB PO SCH ×2 (08:01→20:35)
[2018-07-20] MEDS: CLINDAMYCIN HCL 150 MG CAP PO SCH ×3 (08:01→20:37)
[2018-07-20] MEDS: HEPARIN SOD 5,000 UNIT/0.5 ML VIAL SQ SCH ×2 (08:02→20:36)
[2018-07-20] MEDS: NYSTATIN POWDER 15GM BTL EXT SCH ×2 (08:03→20:38)
[2018-07-20] MEDS: INSULIN ASPART 100 UNITS/ML 3 ML PEN SC SCH ×4 (08:06→20:34)
--- NOTE | 2018-07-20 11:06 | Family Medicine Progress Note ---
Date of Service July 20, 2018 Assessment & Plan (1) Cellulitis of groin: 53-year-old male was admitted on 14 July 2018 for erythema and pain extending from his lower abdomen, inguinal region, and down his left leg. Cellulitis of groin and left leg: No clear evidence of Fourniers gangrene or necrotizing fasciitis on imaging. May be due to multiple ulcers vs additional fungal infection. 24Apr started on vancomycin, Zosyn, and topical nystatin. See related surgical and ID notes. 24Apr BCx no growth (final). 28Apr wound culture grew Group C Strep (sensitivities pending). No evidence of osteo on XR of left foot. 29Apr added back clindamycin for antitoxin effect. Left lower extremity chronic venous insufficiency: 24Apr left leg arterial Doppler u/s was suggestive of possible arterial occlusion. Vascular surgery consulted, see related notes. No role for surgery at this time. Wound care consulted, applying local dressings. Consider compression stockings to help with edema once weeping improves. Elevated troponin, cardiomyopathy: 24Apr TTE noted EF 25-30% and severe LV global hypokinesis (see full report). Coxsackie labs pending. See related cardiology notes. Thought to be long-standing idiopathic cardiomyopathy. Started on Coreg, then Entresto. Patient may have been on an JOSH-I in the past. Polymorphic ventricular tachycardia: Asymptomatic 10 second run. Started on coreg as above. Monitoring electrolytes. Acute kidney injury: Admit Cr 1.71 with unknown baseline. IV fluids provided. 24Apr UCx no growth (final). FeNa suggestive of post-renal source (without clear source suggested on CT pelvis), though suspect he has underlying chronic kidney disease. Hyperglycemia: 24Apr A1c 7.5, new diagnosis of DM. On insulin sliding scale here. Plan to start metformin 500 mg BID at discharge. DM educator involved, appreciate the patient education. - Consider addition of additional medications such as a GLP-1 agonist as well as a moderate-intensity statin at time of discharge as well. Elevated LFTs: Mildly elevated AST & ALT on admit, both resolved. Hypoalbuminemia: Albumin as low as 1.9. Positive hemoccult: On 26Apr. Hb stable in 14s. See related GI note. Recommended outpatient colonoscopy when medically more stable, perhaps in the next 4-8 weeks. Ongoing medical issues: - Obesity: BMI 41. Suspect COREY as well. Would benefit from outpatient workup. - Diverticulosis: As seen on 24Apr CT pelvis. Code status: Full code, but need to clarify this with patient. Diet: Heart healthy, carb consistent. DVT prophy: Will restart Heparin BID. PT/OT: Consulted PT/OT. Disbo: Admitted to [facility]. (2) Cellulitis of left leg: (3) Chronic venous insufficiency: (4) Elevated troponin: (5) Cardiomyopathy: (6) Polymorphic ventricular tachycardia: (7) Acute kidney injury: (8) Diabetes mellitus, new onset: (9) Elevated LFTs: (10) Hypoalbuminemia: (11) Obesity: (12) Diverticulosis: Supervising Physician Co-Signing Physician Notes I personally examined the patient and verified all cuenca points of history and exam, discussed case, and agree with decision making with Dr Griffiths. Generally feeling okay. No acute complaints. Vitals noted, in general he is awake alert pleasant no distress. HEENT normocephalic atraumatic extra movements are moist. Breathing is unlabored no accessory muscle use good effort. Skin shows no pallor or icterus, otherwise as above. No neuro deficits. Left lower extremity cellulitisimproving. Continue IV antibiotics pending final culture results. Hopefully able to transition to oral soon. Cardiomyopathy/systolic CHFcurrently appears to be compensated without signs of pulmonary edema. He is tolerating Coreg well, tolerating trial of Entresto (follow kidney function). Given the uncertain etiology of this, he will likely benefit from ischemic testing once he is in a more stable state. Currently even if it was an ischemic cardiomyopathy does not appear to have any instability/unstable angina etc. Elevated creatinineuncertain baseline but his urine studies and trend of labs suggest this may be his baseline. Continue to follow Type 2 diabetescontinue current management, reasonable control for now. DVT prophylaxisheparin subcu (related to heme positive stools, he has shown no signs of true GI blood losses, and given his CHF/BMI/immobility, his risk of forming DVT certainly outweighs the risk of any potential exacerbation of mild blood loss related to the subcu heparin, and he has shown no significant bleeding) Subjective Found patient resting comfortably in bed. He continues to deny any present concerns and does not elaborate on any questions. Physical Exam Physical Exam: General Appearance: Found sleeping comfortably, awakens easily, appears comfortable in general, NAD. CV: +S1S2 RRR, no murmur. Pulm: Clear to auscultation throughout. Abdomen: +BS, soft, non-tender, non-distended. Coles catheter in place. Extremities: - The left lower extremity has some generalized edema with multiple areas of broken blisters and less-so smaller ulcerations. The left inguinal region and left inner thigh is generally erythematous but not warm to touch or ttp. The left outer thigh is a bit ttp (at areas where blisters have broken) but not notably erythematous or warm. - The right lower extremity has multiple scattered ulcerations without blistering or noted focal erythema. Neuro: No gross neuro deficits. Results & Data Vital Signs (Past 12 Hours) Vital Signs Temp Pulse Resp BP Pulse Ox 07/20/18 07:05 36.6 C 67 18 139/87 96 07/19/18 23:41 37.1 C 71 18 153/93 H 97 Laboratory Results 07/20/18 07/20/18 07/20/18 Range/Units 07:45 06:25 06:25 WBC (4.8-10.8) K/uL RBC (4.7-6.1) M/uL Hgb (14.0-18.0) g/dL Hct (42-52) % MCV (80-100) fL MCH (25-34) pg MCHC (32-36) g/dL RDW Std Deviation (36.4-46.3) fL RDW Coeff of Junior (11.5-14.5) % Plt Count (130-400) K/uL MPV (7.4-10.4) fL Immature Gran % (Auto) % Neut % (Auto) % Lymph % (Auto) % [place] % (Auto) % Eos % (Auto) % Baso % (Auto) % Immature Gran # (Auto) (0.00-0.02) K/uL Neut # (Auto) (1.4-6.5) K/uL Lymph # (Auto) (1.2-3.4) K/uL [place] # (Auto) (0.11-0.59) K/uL Eos # (Auto) (0-0.5) K/uL Baso # (Auto) (0-0.2) K/uL Sodium (136-145) mmol/L Potassium (3.5-5.1) mmol/L Chloride (98-107) mmol/L Carbon Dioxide (21-32) mmol/L Anion Gap (3-11) BUN (7-18) mg/dl Creatinine (0.6-1.4) mg/dl Est Cr Clr Drug Dosing ml/min Est GFR ( Amer) Est GFR (Non-Af Amer) BUN/Creatinine Ratio (10-20) Glucose (70-99) mg/dl POC Glucose 122 H (70-99) Calcium (8.5-10.1) mg/dl Ur Random Creatinine 14.6 mg/dl Ur Random Sodium Cancelled 90 mmol/L 07/20/18 07/20/18 07/19/18 Range/Units 05:26 05:26 20:15 WBC 12.51 H (4.8-10.8) K/uL RBC 4.88 (4.7-6.1) M/uL Hgb 14.0 (14.0-18.0) g/dL Hct 42.5 (42-52) % MCV 87.1 (80-100) fL MCH 28.7 (25-34) pg MCHC 32.9 (32-36) g/dL RDW Std Deviation 45.6 (36.4-46.3) fL RDW Coeff of Junior 14.3 (11.5-14.5) % Plt Count 302 (130-400) K/uL MPV 10.0 (7.4-10.4) fL Immature Gran % (Auto) 2.2 % Neut % (Auto) 74.3 % Lymph % (Auto) 8.0 % [place] % (Auto) 13.4 % Eos % (Auto) 1.9 % Baso % (Auto) 0.2 % Immature Gran # (Auto) 0.27 H (0.00-0.02) K/uL Neut # (Auto) 9.29 H (1.4-6.5) K/uL Lymph # (Auto) 1.00 L (1.2-3.4) K/uL [place] # (Auto) 1.68 H (0.11-0.59) K/uL Eos # (Auto) 0.24 (0-0.5) K/uL Baso # (Auto) 0.03 (0-0.2) K/uL Sodium 136 (136-145) mmol/L Potassium 4.1 (3.5-5.1) mmol/L Chloride 105 (98-107) mmol/L Carbon Dioxide 28 (21-32) mmol/L Anion Gap 3.0 (3-11) BUN 21 H (7-18) mg/dl Creatinine 1.47 H (0.6-1.4) mg/dl Est Cr Clr Drug Dosing 87.4 ml/min Est GFR ( Amer) 61.8 Est GFR (Non-Af Amer) 53.3 BUN/Creatinine Ratio 14.3 (10-20) Glucose 131 H (70-99) mg/dl POC Glucose 148 H (70-99) Calcium 8.0 L (8.5-10.1) mg/dl Ur Random Creatinine mg/dl Ur Random Sodium mmol/L 07/19/18 07/19/18 Range/Units 16:17 11:11 WBC (4.8-10.8) K/uL RBC (4.7-6.1) M/uL Hgb (14.0-18.0) g/dL Hct (42-52) % MCV (80-100) fL MCH (25-34) pg MCHC (32-36) g/dL RDW Std Deviation (36.4-46.3) fL RDW Coeff of Junior (11.5-14.5) % Plt Count (130-400) K/uL MPV (7.4-10.4) fL Immature Gran % (Auto) % Neut % (Auto) % Lymph % (Auto) % [place] % (Auto) % Eos % (Auto) % Baso % (Auto) % Immature Gran # (Auto) (0.00-0.02) K/uL Neut # (Auto) (1.4-6.5) K/uL Lymph # (Auto) (1.2-3.4) K/uL [place] # (Auto) (0.11-0.59) K/uL Eos # (Auto) (0-0.5) K/uL Baso # (Auto) (0-0.2) K/uL Sodium (136-145) mmol/L Potassium (3.5-5.1) mmol/L Chloride (98-107) mmol/L Carbon Dioxide (21-32) mmol/L Anion Gap (3-11) BUN (7-18) mg/dl Creatinine (0.6-1.4) mg/dl Est Cr Clr Drug Dosing ml/min Est GFR ( Amer) Est GFR (Non-Af Amer) BUN/Creatinine Ratio (10-20) Glucose (70-99) mg/dl POC Glucose 126 H 189 H (70-99) Calcium (8.5-10.1) mg/dl Ur Random Creatinine mg/dl Ur Random Sodium mmol/L Medications Administered Current Inpatient Medications Acetaminophen (Tylenol) 650 mg PO Q4H PRN PRN Reason: Pain or Fever Stop: 08/13/18 05:31 Al Hydrox/Mg Hydrox/Simethicone (Maalox) 15 ml PO Q4H PRN PRN Reason: Dyspepsia Stop: 08/13/18 05:31 Calcium Carbonate (Tums) 1,500 mg PO QID PRN PRN Reason: Indigestion Stop: 08/14/18 08:43 Carvedilol (Coreg) 12.5 mg PO BID [facility] Stop: 08/18/18 20:59 Last Admin: 07/20/18 08:01 Dose: 12.5 mg Documented by: Clindamycin HCl (Cleocin) 300 mg PO TID [facility] Stop: 07/29/18 13:59 Last Admin: 07/20/18 08:01 Dose: 300 mg Documented by: Dextrose (Dextrose 50%) 25 - 50 ml IV UD PRN; Protocol PRN Reason: Hypoglycemia Protocol Stop: 08/14/18 09:37 Glucagon (Glucagen) 1 mg SQ UD PRN; Protocol PRN Reason: Hypoglycemia Protocol Stop: 08/14/18 09:37 Glucose (Glucose 40%) 15 - 30 gm PO UD PRN; Protocol PRN Reason: Hypoglycemia Protocol Stop: 08/14/18 09:37 Glucose (Dex4 Glucose) 4 - 8 tabs PO UD PRN; Protocol PRN Reason: Hypoglycemia Protocol Stop: 08/14/18 09:37 Heparin Sodium (Porcine) (Heparin Sodium (Porcine)) 5,000 units SQ Q12 [facility] Stop: 08/18/18 20:59 Last Admin: 07/20/18 08:02 Dose: Not Given Documented by: Piperacillin Sod/Tazobactam (Sod 4.5 gm/ Dextrose) 120 mls @ 30 mls/hr IV Q8H [facility] Stop: 07/24/18 06:59 Last Infusion: 07/20/18 10:16 Dose: Infused Documented by: Vancomycin HCl 1,750 mg/ (Sodium Chloride) 535 mls @ 200 mls/hr IV Q20H [facility]; Protocol Stop: 07/24/18 12:00 Last Infusion: 07/20/18 01:03 Dose: Infused Documented by: Sodium Chloride (Nss 1000ml) 1,000 mls @ 75 mls/hr IV .[id number] [facility] Stop: 08/18/18 16:44 Last Admin: 07/20/18 08:00 Dose: 75 mls/hr Documented by: Insulin Aspart (Novolog Flexpen) 0 units SC ACHS [facility] Stop: 08/14/18 11:29 Last Admin: 07/20/18 08:06 Dose: 10 units Documented by: Magnesium Hydroxide (Milk Of Magnesia) 30 ml PO Q12H PRN PRN Reason: Constipation Stop: 08/13/18 05:31 Miscellaneous (Carbohydrates For Hypoglycemia) 15 - 30 gm PO UD PRN PRN Reason: Hypoglycemia Treatment Stop: 08/14/18 09:37 Miscellaneous Information (Consult) 1 ea N/A UD PRN PRN Reason: Consult Stop: 08/13/18 05:31 Miscellaneous Information (Consult) 1 ea N/A UD PRN PRN Reason: Consult Stop: 08/13/18 05:31 Nystatin (Mycostatin) 1 appln EXT BID [facility] Stop: 08/13/18 08:59 Last Admin: 07/20/18 08:03 Dose: 1 appln Documented by: Ondansetron HCl (Zofran) 4 mg IV Q6H PRN PRN Reason: Nausea Stop: 08/13/18 05:31 Polyethylene Glycol (Miralax Powder Packet) 17 gm PO DAILY PRN PRN Reason: Constipation Stop: 08/13/18 05:31 Sacubitril/Valsartan (Entresto 24/26mg) 1 tab PO BID [facility] Stop: 08/18/18 20:59 Last Admin: 07/20/18 08:01 Dose: 1 tab Documented by: Zolpidem Tartrate (Ambien) 5 mg PO HS PRN PRN Reason: Sleep Stop: 08/13/18 05:31 Resident Activity Tracking Resident Involvement: Resident Care Provided Care Provided: Adult [facility] Medicine
--- NOTE | 2018-07-20 14:43 | Infectious Disease Progress Nt ---
Date of Service July 20, 2018 Assessment & Plan (1) Cellulitis of left leg: wll continue IV abx for now, pending final wound culture results. blood cultures negative. continue local wound care. (2) Cellulitis of groin: Subjective pt with gcs from wound culture, awaiting final. afebrile. blood cultures negative. wbc decreased from 13 to 12. tolerating abx. Results & Data Vital Signs (Past 12 Hours) Vital Signs Temp Pulse Resp BP Pulse Ox 07/20/18 07:05 36.6 C 67 18 139/87 96 Laboratory Results Microbiology 07/18/18 11:35 Groin Gram Stain - Final 07/18/18 11:35 Groin Wound Culture - Preliminary Group C Beta Strep 07/14/18 00:12 Blood Blood Culture - Final No growth 07/13/18 23:53 Blood Blood Culture - Final No growth 07/14/18 11:15 Urine,Clean Catch Urine Culture - Final No growth - less than 1,000 colonies/mL.
[2018-07-20] MEDS ORDERED: VANCOMYCIN TROUGH ONE (17:30)
[2018-07-20] MEDS: VANCOMYCIN HCL 1,750 MG in SODIUM CHLORIDE 0.9% 500 ML IV SCH (18:14)
[2018-07-21] MEDS: PIPERACILLIN/TAZOBACTAM 4.5 GM in DEXTROSE 5% 100 ML IV SCH ×2 (06:31→14:17)
[2018-07-21] MEDS: CLINDAMYCIN HCL 150 MG CAP PO SCH ×3 (09:00→21:25)
[2018-07-21] MEDS: CARVEDILOL 12.5 MG TAB PO SCH ×2 (09:01→21:25)
[2018-07-21] MEDS: SACUBITRIL-VALSARTAN 24-26 MG TAB PO SCH ×2 (09:01→21:26)
[2018-07-21] MEDS: HEPARIN SOD 5,000 UNIT/0.5 ML VIAL SQ SCH ×2 (09:02→21:26)
[2018-07-21] MEDS: NYSTATIN POWDER 15GM BTL EXT SCH ×2 (09:02→21:26)
[2018-07-21] MEDS: INSULIN ASPART 100 UNITS/ML 3 ML PEN SC SCH ×4 (09:05→21:26)
[2018-07-21] MEDS ORDERED: VANCOMYCIN HCL 1,750 MG in SODIUM CHLORIDE 0.9% 500 ML IV SCH (10:00)
--- NOTE | 2018-07-21 11:41 | Cardiology Progress Note ---
Date of Service July 21, 2018 Assessment & Plan (1) Cardiomyopathy: Unclear etiology. We can check a few serum studies while he is here in the hospital. Some point he will require an ischemic evaluation. He seems to be tolerating medical therapy well. His blood pressure continues to be elevated in his heart rate is normal. I think we can increase his carvedilol once again starting tomorrow. He was initiated on Entresto as well. He seems to be tolerating his current dose well. My concern is the cost of this medicine on an outpatient basis. Hopefully there will be some services available for him to defer the cost of this medicine once he leaves the hospital. If not, use of lisinopril or losartan would be more desirable. (2) Elevated troponin: Likely related to his cardiomyopathy. I do not believe he suffered a recent acute coronary syndrome. No symptoms of chest discomfort. (3) Polymorphic ventricular tachycardia: On beta-blockade. Subjective This morning the patient had no specific complaints. He did report ambulating with a walker yesterday. He did not report significant dizziness or lightheadedness. He has not report discomfort in his leg. No symptoms of breathing difficulty. Review of Systems Review of Systems: Per HPI Physical Exam Physical Exam: The patient is alert and oriented. Mood and affect appeared normal. He answered all questions appropriately. HEENT: Pupils are equal and reactive to light and accommodation. Extraocular movements are intact. The sclerae are anicteric. Lungs: Clear to auscultation bilaterally. He has good air movement without use of accessory muscles. No rales wheezes or rhonchi. Cardiac: Heart demonstrates a regular rate and rhythm. Normal S1 and S2. No murmurs on examination. Results & Data Vital Signs (Past 12 Hours) Vital Signs Temp Pulse Resp BP Pulse Ox 07/21/18 07:30 36.7 C 77 18 147/94 H 96 07/21/18 00:11 36.7 C 79 18 151/95 H 95 Laboratory Results Abnormal Lab Results 07/20/18 07/20/18 07/20/18 11:41 16:43 17:36 POC Glucose 167 H 186 H Vancomycin Trough 13.4 07/20/18 07/21/18 19:57 07:44 POC Glucose 153 H 111 H Vancomycin Trough
--- NOTE | 2018-07-21 14:29 | Infectious Disease Progress Nt ---
Date of Service July 21, 2018 Assessment & Plan (1) Cellulitis of left leg: will change to po Augmentin 875mg po bid, would give 3 week course. ok for d/c when otherwise stable. (2) Cellulitis of groin: Subjective Remains on IV Abx, tolerating well, wound culture growing pansensitive GCS. no am labs, wbc has been trending down. afebrile. blood cultures negative. Results & Data Vital Signs (Past 12 Hours) Vital Signs Temp Pulse Resp BP Pulse Ox 07/21/18 07:30 36.7 C 77 18 147/94 H 96 Laboratory Results Microbiology 07/18/18 11:35 Groin Gram Stain - Final 07/18/18 11:35 Groin Wound Culture - Final Group C Beta Strep 07/14/18 00:12 Blood Blood Culture - Final No growth 07/13/18 23:53 Blood Blood Culture - Final No growth 07/14/18 11:15 Urine,Clean Catch Urine Culture - Final No growth - less than 1,000 colonies/mL.
[2018-07-21] MEDS: ACETAMINOPHEN 325 MG TAB PO PRN (15:34)
--- NOTE | 2018-07-21 18:24 | Family Medicine Progress Note ---
Date of Service July 21, 2018 Assessment & Plan (1) Cellulitis of groin: 53-year-old male was admitted on 14 July 2018 for erythema and pain extending from his lower abdomen, inguinal region, and down his left leg. Cellulitis of groin and left leg: No clear evidence of Fourniers gangrene or necrotizing fasciitis on imaging. May be due to multiple ulcers vs additional fungal infection. 24Apr started on vancomycin, Zosyn, and topical nystatin. See related surgical and ID notes. 24Apr BCx no growth (final). 28Apr wound culture grew Group C Strep (sensitivities pending). No evidence of osteo on XR of left foot. 29Apr added back clindamycin for antitoxin effect. -Per ID discharge on Augmentin 875 mg twice daily x3 weeks pending placement Left lower extremity chronic venous insufficiency: 24Apr left leg arterial Doppler u/s was suggestive of possible arterial occlusion. Vascular surgery consulted, see related notes. No role for surgery at this time. Wound care consulted, applying local dressings. Consider compression stockings to help with edema once weeping improves. Elevated troponin, cardiomyopathy: 24Apr TTE noted EF 25-30% and severe LV global hypokinesis (see full report). Coxsackie labs pending. See related cardiology notes. Thought to be long-standing idiopathic cardiomyopathy. Started on Coreg, then Entresto. Patient may have been on an JOSH-I in the past. Polymorphic ventricular tachycardia: Asymptomatic 10 second run. Started on coreg as above. Monitoring electrolytes. Acute kidney injury: Admit Cr 1.71 with unknown baseline. IV fluids provided. 24Apr UCx no growth (final). FeNa suggestive of post-renal source (without clear source suggested on CT pelvis), though suspect he has underlying chronic kidney disease. Improved to 1.5 GFR 50 Hyperglycemia: 24Apr A1c 7.5, new diagnosis of DM. On insulin sliding scale here. Plan to start metformin 500 mg BID at discharge. DM educator involved, appreciate the patient education. - Consider addition of additional medications such as a GLP-1 agonist as well as a moderate-intensity statin at time of discharge as well. Elevated LFTs: Mildly elevated AST & ALT on admit, both resolved. Hypoalbuminemia: Albumin as low as 1.9. Positive hemoccult: On 26Apr. Hb stable in 14s. See related GI note. Recommended outpatient colonoscopy when medically more stable, perhaps in the next 4-8 weeks. Ongoing medical issues: - Obesity: BMI 41. Suspect COREY as well. Would benefit from outpatient workup. - Diverticulosis: As seen on 24Apr CT pelvis. Code status: Full code, but need to clarify this with patient. Diet: Heart healthy, carb consistent. DVT prophy: Will restart Heparin BID. PT/OT: Consulted PT/OT. Disbo: No beds at [facility] apply for insurance authorization Supervising Physician Co-Signing Physician Notes I personally examined the patient and verified all cuenca points of history and exam, discussed case, and agree with decision making with Dr Alexander. Generally feeling okay. No acute complaints. weak enough that he needs rehab. willing to go. Vitals noted, in general he is awake alert pleasant no distress. HEENT normocephalic atraumatic extra movements are moist. Breathing is unlabored no accessory muscle use good effort. Skin shows no pallor or icterus, otherwise as above. No neuro deficits. Left lower extremity cellulitisimproving. change to PO abx. Cardiomyopathy/systolic CHFcurrently appears to be compensated without signs of pulmonary edema. He is tolerating Coreg well, tolerating trial of Entresto (follow kidney function periodically). Given the uncertain etiology of this, he will likely benefit from ischemic testing once he is in a more stable state. Currently even if it was an ischemic cardiomyopathy does not appear to have any instability/unstable angina etc. stable for outpt f/u Elevated creatinineuncertain baseline but his urine studies and trend of labs suggest this may be his baseline. Continue to follow periodically Type 2 diabetescontinue current management, showing overall adequate control for now. DVT prophylaxisheparin subcu (related to heme positive stools, he has shown no signs of true GI blood losses, and given his CHF/BMI/immobility, his risk of forming DVT certainly outweighs the risk of any potential exacerbation of mild blood loss related to the subcu heparin, and he has shown no significant bleeding) Subjective Patient denies any discomfort this morning. Remains on IV Abx, tolerating well, wound culture growing pansensitive GCS. afebrile. blood cultures negative. Review of Systems Review of Systems: As per HPI otherwise negative Physical Exam Physical Exam: General: In NAD CV: RRR, no m/r/g PULM: CTAB, equal breath sounds bilaterally ABDOMEN: +BS, non-distended, non-tender to palpation in all quadrants LE: Trace right and 1+ left lower extremity edema, less intense erythema, and edema with healing ulcers over left lower extremity up to groin region Results & Data Vital Signs (Past 12 Hours) Vital Signs Temp Pulse Resp BP Pulse Ox 07/21/18 15:32 36.5 C 70 20 144/91 H 98 07/21/18 07:30 36.7 C 77 18 147/94 H 96 Laboratory Results Abnormal lab results 07/20/18 07/21/18 07/21/18 Range/Units 19:57 07:44 11:56 POC Glucose 153 H 111 H 144 H (70-99) 07/21/18 Range/Units 16:15 POC Glucose 116 H (70-99) Medications Administered Current Inpatient Medications Acetaminophen (Tylenol) 650 mg PO Q4H PRN PRN Reason: Pain or Fever Stop: 08/13/18 05:31 Last Admin: 07/21/18 15:34 Dose: 650 mg Documented by: Al Hydrox/Mg Hydrox/Simethicone (Maalox) 15 ml PO Q4H PRN PRN Reason: Dyspepsia Stop: 08/13/18 05:31 Amoxicillin/Clavulanate Potassium (Augmentin 875mg) 1 tab PO BID [facility] Stop: 07/31/18 20:59 Calcium Carbonate (Tums) 1,500 mg PO QID PRN PRN Reason: Indigestion Stop: 08/14/18 08:43 Carvedilol (Coreg) 12.5 mg PO BID [facility] [place] Stop: 08/18/18 20:59 Last Admin: 07/21/18 09:01 Dose: 12.5 mg Documented by: Clindamycin HCl (Cleocin) 300 mg PO TID [facility] Stop: 07/29/18 13:59 Last Admin: 07/21/18 12:48 Dose: 300 mg Documented by: Dextrose (Dextrose 50%) 25 - 50 ml IV UD PRN; Protocol PRN Reason: Hypoglycemia Protocol Stop: 08/14/18 09:37 Glucagon (Glucagen) 1 mg SQ UD PRN; Protocol PRN Reason: Hypoglycemia Protocol Stop: 08/14/18 09:37 Glucose (Glucose 40%) 15 - 30 gm PO UD PRN; Protocol PRN Reason: Hypoglycemia Protocol Stop: 08/14/18 09:37 Glucose (Dex4 Glucose) 4 - 8 tabs PO UD PRN; Protocol PRN Reason: Hypoglycemia Protocol Stop: 08/14/18 09:37 Heparin Sodium (Porcine) (Heparin Sodium (Porcine)) 5,000 units SQ Q12 [facility] Stop: 08/18/18 20:59 Last Admin: 07/21/18 09:02 Dose: 5,000 units Documented by: Insulin Aspart (Novolog Flexpen) 0 units SC ACHS [facility] Stop: 08/14/18 11:29 Last Admin: 07/21/18 17:44 Dose: 5 units Documented by: Magnesium Hydroxide (Milk Of Magnesia) 30 ml PO Q12H PRN PRN Reason: Constipation Stop: 08/13/18 05:31 Miscellaneous (Carbohydrates For Hypoglycemia) 15 - 30 gm PO UD PRN PRN Reason: Hypoglycemia Treatment Stop: 08/14/18 09:37 Nystatin (Mycostatin) 1 appln EXT BID [facility] Stop: 08/13/18 08:59 Last Admin: 07/21/18 09:02 Dose: 1 appln Documented by: Ondansetron HCl (Zofran) 4 mg IV Q6H PRN PRN Reason: Nausea Stop: 08/13/18 05:31 Polyethylene Glycol (Miralax Powder Packet) 17 gm PO DAILY PRN PRN Reason: Constipation Stop: 08/13/18 05:31 Sacubitril/Valsartan (Entresto 24/26mg) 1 tab PO BID [facility] [place] Stop: 08/18/18 20:59 Last Admin: 07/21/18 09:01 Dose: 1 tab Documented by: Zolpidem Tartrate (Ambien) 5 mg PO HS PRN PRN Reason: Sleep Stop: 08/13/18 05:31 Resident Activity Tracking Resident Involvement: Resident Care Provided Care Provided: Adult Hospital Medicine
[2018-07-21] MEDS ORDERED: AMOXICILLIN/CLAVULANATE 875 MG TAB PO SCH (21:00)
[2018-07-22] MEDS ORDERED: DiphenhydrAMINE HCL 50 MG/ML VIAL IV STA ×2 (00:09)
[2018-07-22 05:42] LABS: Creatinine Clr Calc Pharmacy 98.1 ml/min; Est GFR (Non-African American) 61.3
[2018-07-22] MEDS: cephALEXin 500 MG CAP PO SCH ×3 (09:02→21:03)
[2018-07-22] MEDS: CLINDAMYCIN HCL 150 MG CAP PO SCH ×3 (09:03→21:03)
[2018-07-22] MEDS: NYSTATIN POWDER 15GM BTL EXT SCH ×2 (09:03→21:01)
[2018-07-22] MEDS: SACUBITRIL-VALSARTAN 24-26 MG TAB PO SCH ×2 (09:03→21:03)
[2018-07-22] MEDS: CARVEDILOL 12.5 MG TAB PO SCH ×2 (09:03→21:03)
[2018-07-22] MEDS: LACTOBACILLUS ACIDOPHILUS (FLORANEX) TAB PO SCH ×3 (09:04→17:41)
[2018-07-22] MEDS: HEPARIN SOD 5,000 UNIT/0.5 ML VIAL SQ SCH ×2 (09:04→21:04)
[2018-07-22] MEDS: INSULIN ASPART 100 UNITS/ML 3 ML PEN SC SCH ×4 (09:06→21:04)
--- NOTE | 2018-07-22 15:33 | Progress Note ---
Date of Service July 22, 2018 Assessment & Plan (1) Cellulitis of groin: 53-year-old male was admitted on 14 July 2018 for erythema and pain extending from his lower abdomen, inguinal region, and down his left leg. Cellulitis of groin and left leg: No clear evidence of Fourniers gangrene or necrotizing fasciitis on imaging. May be due to multiple ulcers vs additional fungal infection. 24Apr started on vancomycin, Zosyn, and topical nystatin. See related surgical and ID notes. 24Apr BCx no growth (final). 28Apr wound culture grew Group C Strep (sensitivities pending). No evidence of osteo on XR of left foot. 29Apr added back clindamycin for antitoxin effect. -On clindamycin 300mg TID to complete day 3/10 -On keflex 500mg TID x 3 weeks (day 1) Left lower extremity chronic venous insufficiency: 24Apr left leg arterial Doppler u/s was suggestive of possible arterial occlusion. Vascular surgery consulted, see related notes. No role for surgery at this time. Wound care consulted, applying local dressings. Consider compression stockings to help with edema once weeping improves. Elevated troponin, cardiomyopathy: 24Apr TTE noted EF 25-30% and severe LV global hypokinesis (see full report). Coxsackie labs pending. See related cardiology notes. Thought to be long-standing idiopathic cardiomyopathy. Started on Coreg, then Entresto. Patient may have been on an JOSH-I in the past. Polymorphic ventricular tachycardia: Asymptomatic 10 second run. Started on coreg as above. Acute kidney injury: Admit Cr 1.71 with unknown baseline. IV fluids provided. 24Apr UCx no growth (final). FeNa suggestive of post-renal source (without clear source suggested on CT pelvis), though suspect he has underlying chronic kidney disease. Improved to 1.5 GFR 50 Hyperglycemia: 24Apr A1c 7.5, new diagnosis of DM. On insulin sliding scale here. Plan to start metformin 500 mg BID at discharge. DM educator involved, appreciate the patient education. - Consider addition of additional medications such as a GLP-1 agonist as well as a moderate-intensity statin at time of discharge as well. Elevated LFTs: Mildly elevated AST & ALT on admit, both resolved. Hypoalbuminemia: Albumin as low as 1.9. Positive hemoccult: On 26Apr. Hb stable in 14s. See related GI note. Recommended outpatient colonoscopy when medically more stable, perhaps in the next 4-8 weeks. Ongoing medical issues: - Obesity: BMI 41. Suspect COREY as well. Would benefit from outpatient workup. - Diverticulosis: As seen on 24Apr CT pelvis. Code status: Full code Diet: Heart healthy, carb consistent. DVT prophy: Heparin BID PT/OT: Consulted PT/OT Disbo: Pt cannot afford SNF due to insurance. Not safe to go home. Discharge pending pt getting stronger to go home with home health. Encourage nursing working with patient in addition to daily PT/OT. Supervising Physician Co-Signing Physician Notes I personally examined the patient and verified all cuenca points of history and exam, discussed case, and agree with decision making with Dr Alexander. Generally feeling okay. asked therapy to not work with him because his sock was wet. d/w case management - see their notes. Vitals noted, in general he is awake alert pleasant no distress. HEENT normocephalic atraumatic extra movements are moist. Breathing is unlabored no accessory muscle use good effort. Skin shows no pallor or icterus, does ahve diffuse macular non pruritic rash on back, not noted elsewhere. otherwise as above. No neuro deficits. Left lower extremity cellulitisimproving. uncertain if truly had a rash from augmentin or just contract w sheets/warmth/etc -- but will switch to keflex for course. continue clinda for now too. Cardiomyopathy/systolic CHFcurrently appears to be compensated without signs of pulmonary edema. He is tolerating Coreg well, tolerating trial of Entresto (follow kidney function periodically). Given the uncertain etiology of this, he will likely benefit from ischemic testing once he is in a more stable state. asymptomatic Elevated creatinineuncertain baseline but his urine studies and trend of labs suggest this may be his baseline. Continue to follow periodically, even as outpt. Type 2 diabetescontinue current management, current control remains reasonable. DVT prophylaxisheparin subcu (related to heme positive stools, he has shown no signs of true GI blood losses, and given his CHF/BMI/immobility, his risk of forming DVT certainly outweighs the risk of any potential exacerbation of mild blood loss related to the subcu heparin, and he has shown no significant bleedi ng) Subjective Patient denies any discomfort or any other symptoms this morning. On PO Abx, tolerating well, wound culture growing pansensitive GCS. afebrile. blood cultures negative Review of Systems Review of Systems: As per HPI otherwise negative Physical Exam Physical Exam: General: In NAD CV: RRR, no m/r/g PULM: CTAB, equal breath sounds bilaterally ABDOMEN: +BS, non-distended, non-tender to palpation in all quadrants LE: Trace right and 1+ left lower extremity edema, less intense erythema, and edema with healing ulcers over left lower extremity up to groin region Results & Data Vital Signs (Past 12 Hours) Vital Signs Temp Pulse Resp BP BP Pulse Ox 07/22/18 15:16 36.7 C 78 24 144/94 H 96 07/22/18 10:07 166/99 H 07/22/18 07:32 36.3 C L 82 18 156/102 H 93 Laboratory Results Abnormal lab results 07/21/18 07/21/18 07/22/18 Range/Units 16:15 20:12 04:52 POC Glucose 116 H 137 H (70-99) Ferritin 741.0 H (8-388) ng/ml 07/22/18 07/22/18 Range/Units 08:05 11:38 POC Glucose 109 H 146 H (70-99) Ferritin (8-388) ng/ml Medications Administered Current Inpatient Medications Acetaminophen (Tylenol) 650 mg PO Q4H PRN PRN Reason: Pain or Fever Stop: 08/13/18 05:31 Last Admin: 07/21/18 15:34 Dose: 650 mg Documented by: Al Hydrox/Mg Hydrox/Simethicone (Maalox) 15 ml PO Q4H PRN PRN Reason: Dyspepsia Stop: 08/13/18 05:31 Calcium Carbonate (Tums) 1,500 mg PO QID PRN PRN Reason: Indigestion Stop: 08/14/18 08:43 Carvedilol (Coreg) 12.5 mg PO BID [facility] Stop: 08/18/18 20:59 Last Admin: 07/22/18 09:03 Dose: 12.5 mg Documented by: Cephalexin HCl (Keflex) 500 mg PO TID [facility]; Protocol Stop: 08/01/18 08:59 Last Admin: 07/22/18 12:39 Dose: 500 mg Documented by: Clindamycin HCl (Cleocin) 300 mg PO TID [facility] Stop: 07/29/18 13:59 Last Admin: 07/22/18 12:39 Dose: 300 mg Documented by: Dextrose (Dextrose 50%) 25 - 50 ml IV UD PRN; Protocol PRN Reason: Hypoglycemia Protocol Stop: 08/14/18 09:37 Glucagon (Glucagen) 1 mg SQ UD PRN; Protocol PRN Reason: Hypoglycemia Protocol Stop: 08/14/18 09:37 Glucose (Glucose 40%) 15 - 30 gm PO UD PRN; Protocol PRN Reason: Hypoglycemia Protocol Stop: 08/14/18 09:37 Glucose (Dex4 Glucose) 4 - 8 tabs PO UD PRN; Protocol PRN Reason: Hypoglycemia Protocol Stop: 08/14/18 09:37 Heparin Sodium (Porcine) (Heparin Sodium (Porcine)) 5,000 units SQ Q12 [facility] Stop: 08/18/18 20:59 Last Admin: 07/22/18 09:04 Dose: 5,000 units Documented by: Insulin Aspart (Novolog Flexpen) 0 units SC ACHS [facility] Stop: 08/14/18 11:29 Last Admin: 07/22/18 12:38 Dose: 5 units Documented by: Lactobacillus Acidophilus (Floranex) 4 tab PO TIDM [facility] Stop: 08/21/18 07:59 Last Admin: 07/22/18 12:39 Dose: 4 tab Documented by: Magnesium Hydroxide (Milk Of Magnesia) 30 ml PO Q12H PRN PRN Reason: Constipation Stop: 08/13/18 05:31 Miscellaneous (Carbohydrates For Hypoglycemia) 15 - 30 gm PO UD PRN PRN Reason: Hypoglycemia Treatment Stop: 08/14/18 09:37 Nystatin (Mycostatin) 1 appln EXT BID [facility] Stop: 08/13/18 08:59 Last Admin: 07/22/18 09:03 Dose: 1 appln Documented by: Ondansetron HCl (Zofran) 4 mg IV Q6H PRN PRN Reason: Nausea Stop: 08/13/18 05:31 Polyethylene Glycol (Miralax Powder Packet) 17 gm PO DAILY PRN PRN Reason: Constipation Stop: 08/13/18 05:31 Sacubitril/Valsartan (Entresto 24/26mg) 1 tab PO BID [facility] Stop: 08/18/18 20:59 Last Admin: 07/22/18 09:03 Dose: 1 tab Documented by: Zolpidem Tartrate (Ambien) 5 mg PO HS PRN PRN Reason: Sleep Stop: 08/13/18 05:31 Resident Activity Tracking Resident Involvement: Resident Care Provided Care Provided: Adult Hospital Medicine
[2018-07-23] MEDS: CARVEDILOL 12.5 MG TAB PO SCH ×2 (07:44→20:50)
[2018-07-23] MEDS: cephALEXin 500 MG CAP PO SCH ×3 (07:44→20:51)
[2018-07-23] MEDS: LACTOBACILLUS ACIDOPHILUS (FLORANEX) TAB PO SCH ×3 (07:44→17:17)
[2018-07-23] MEDS: SACUBITRIL-VALSARTAN 24-26 MG TAB PO SCH ×2 (07:44→20:50)
[2018-07-23] MEDS: CLINDAMYCIN HCL 150 MG CAP PO SCH ×3 (07:44→20:50)
[2018-07-23] MEDS: HEPARIN SOD 5,000 UNIT/0.5 ML VIAL SQ SCH ×2 (07:45→20:52)
[2018-07-23] MEDS: NYSTATIN POWDER 15GM BTL EXT SCH ×2 (07:45→20:51)
[2018-07-23] MEDS: INSULIN ASPART 100 UNITS/ML 3 ML PEN SC SCH ×4 (08:01→20:52)
[2018-07-23] MEDS: EUCERIN CR 120 GM JAR EXT SCH ×2 (17:16→20:50)
--- NOTE | 2018-07-23 19:35 | Hospitalist Progress Note ---
Date of Service July 23, 2018 Assessment & Plan (1) Cellulitis of left leg: (1) Cellulitis of groin: 53-year-old male was admitted on 14 July 2018 for erythema and pain extending from his lower abdomen, inguinal region, and down his left leg. Cellulitis of groin and left leg: No clear evidence of Fourniers gangrene or necrotizing fasciitis on imaging. May be due to multiple ulcers vs additional fungal infection. 24Apr started on vancomycin, Zosyn, and topical nystatin. See related surgical and ID notes. 24Apr BCx no growth (final). 28Apr wound culture grew Group C Strep (sensitivities pending). No evidence of osteo on XR of left foot. 29Apr added back clindamycin for antitoxin effect. -On clindamycin 300mg TID to complete day 4/10 -On keflex 500mg TID x 3 weeks (day 2) -Stable for discharge from the standpoint Left lower extremity chronic venous insufficiency: 24Apr left leg arterial Doppler u/s was suggestive of possible arterial occlusion. Vascular surgery consulted, see related notes. No role for surgery at this time. Wound care consulted, applying local dressings. Consider compression stockings to help with edema once weeping improves. Mobility as best as possible would help as well. Elevated troponin, cardiomyopathy: 24Apr TTE noted EF 25-30% and severe LV global hypokinesis (see full report). Coxsackie labs pending. See related cardiology notes. Thought to be long-standing idiopathic cardiomyopathy. Started on Coreg, then Entresto. Should have a left heart cath at some point for completeness, but no urgency to this given that he show no acute ischemic symptoms. Polymorphic ventricular tachycardia: Asymptomatic 10 second run. Started on coreg as above. No noted recurrence Acute kidney injury: Admit Cr 1.71 with unknown baseline. IV fluids provided. 24Apr UCx no growth (final). FeNa suggestive of post-renal source (without clear source suggested on CT pelvis), though suspect he has underlying chronic kidney disease. Has shown some improvement. Hyperglycemia: 24Apr A1c 7.5, new diagnosis of DM. Sugars showing good control here.. Plan to start metformin 500 mg BID at discharge. DM educator involved, appreciate the patient education. - Consider addition of additional medications such as a GLP-1 agonist as well as a moderate-intensity statin at time of discharge as well. Elevated LFTs: Mildly elevated AST & ALT on admit, both resolved. Hypoalbuminemia: Albumin as low as 1.9. Positive hemoccult: On 26Apr. Hb stable in 14s. See related GI note. Recommended outpatient colonoscopy when medically more stable, perhaps in the next 4-8 weeks. Ongoing medical issues: - Obesity: BMI 41. Suspect COREY as well. Would benefit from outpatient workup. - Diverticulosis: As seen on 24Apr CT pelvis. Code status: Full code Diet: Heart healthy, carb consistent. DVT prophy: Heparin BID PT/OT: Consulted PT/OT Dispo: Pt cannot afford SNF due to insurance. Ongoing PT and OT, encouraged ambulation as much as possible. Right now the plan may be home with his father, but we definitely want the father to see him in his current status to ensure that the father feels this would be reasonably safe. Subjective Has not gotten out of bed that much. Did work with therapy. Leg feeling okay. No other new complaints. Discussed with case management, may need to send him home to the care of his father, but we discussed that we definitely want his fa ther to see how the patient's mobility is to ensure the father feels this would be a safe plan. Review of Systems Review of Systems: All systems reviewed & are unremarkable except as noted in HPI & below Physical Exam Physical Exam: In general he is awake and alert pleasant no distress. HEENT normal cephalic atraumatic mucous membranes moist. Breathing is unlabored no accessory muscle use good effort. Skin shows no rashes no pallor or icterus. Neuro shows cranial nerves II through XII are grossly intact gross motor and sensory intact. Results & Data Vital Signs (Past 12 Hours) Vital Signs Temp Pulse Resp BP BP Pulse Ox 07/23/18 15:30 36.6 C 79 20 171/101 H 171/108 H 95
[2018-07-24 08:07] LABS: Creatinine Clr Calc Pharmacy 103.6 ml/min; Est GFR (African American) 75.9; Est GFR (Non-African American) 65.5
[2018-07-24] MEDS: LACTOBACILLUS ACIDOPHILUS (FLORANEX) TAB PO SCH ×3 (08:33→18:35)
[2018-07-24] MEDS: cephALEXin 500 MG CAP PO SCH ×3 (08:34→20:41)
[2018-07-24] MEDS: SACUBITRIL-VALSARTAN 24-26 MG TAB PO SCH ×2 (08:34→20:40)
[2018-07-24] MEDS: EUCERIN CR 120 GM JAR EXT SCH ×2 (08:34→20:39)
[2018-07-24] MEDS: CLINDAMYCIN HCL 150 MG CAP PO SCH ×3 (08:34→20:39)
[2018-07-24] MEDS: CARVEDILOL 12.5 MG TAB PO SCH ×2 (08:34→20:40)
[2018-07-24] MEDS: HEPARIN SOD 5,000 UNIT/0.5 ML VIAL SQ SCH ×2 (08:35→20:41)
[2018-07-24] MEDS: NYSTATIN POWDER 15GM BTL EXT SCH ×2 (08:35→20:42)
[2018-07-24] MEDS: INSULIN ASPART 100 UNITS/ML 3 ML PEN SC SCH ×4 (08:36→20:44)
--- NOTE | 2018-07-24 18:09 | Hospitalist Progress Note ---
Date of Service July 24, 2018 Assessment & Plan (1) Cellulitis of left leg: (1) Cellulitis of groin: 53-year-old male was admitted on 14 July 2018 for erythema and pain extending from his lower abdomen, inguinal region, and down his left leg. Cellulitis of groin and left leg: No clear evidence of Fourniers gangrene or necrotizing fasciitis on imaging. May be due to multiple ulcers vs additional fungal infection. 24Apr started on vancomycin, Zosyn, and topical nystatin. See related surgical and ID notes. 24Apr BCx no growth (final). 28Apr wound culture grew Group C Strep (sensitivities pending). No evidence of osteo on XR of left foot. 29Apr added back clindamycin for antitoxin effect. -On clindamycin 300mg TID to complete day / -On keflex 500mg TID x 3 weeks (day 3) -Stable for discharge from the standpoint Left lower extremity chronic venous insufficiency: 24Apr left leg arterial Doppler u/s was suggestive of possible arterial occlusion. Vascular surgery consulted, see related notes. No role for surgery at this time. Wound care consulted, applying local dressings. Consider compression stockings to help with edema once weeping improves. Mobility as best as possible would help as well. Continue PT/OT Elevated troponin, cardiomyopathy: 24Apr TTE noted EF 25-30% and severe LV global hypokinesis (see full report). Coxsackie labs pending. See related cardiology notes. Thought to be long-standing idiopathic cardiomyopathy. Started on Coreg, then Entresto. Should have a left heart cath at some point for completeness, but no urgency to this given that he show no acute ischemic symptoms. Stable, continue current care Polymorphic ventricular tachycardia: Asymptomatic 10 second run. Started on coreg as above. No noted recurrence Acute kidney injury: Admit Cr 1.71 with unknown baseline. IV fluids provided. 24Apr UCx no growth (final). FeNa suggestive of post-renal source (without clear source suggested on CT pelvis), though suspect he has underlying chronic kidney disease. Has shown some improvement. Hyperglycemia: 24Apr A1c 7.5, new diagnosis of DM. Sugars continue to show good control here.. Plan to start metformin 500 mg BID at discharge. DM educator involved, appreciate the patient education. - Consider addition of additional medications such as a GLP-1 agonist as well as a moderate-intensity statin at time of discharge as well. Elevated LFTs: Mildly elevated AST & ALT on admit, both resolved. Hypoalbuminemia: Albumin as low as 1.9. Positive hemoccult: On 26Apr. Hb stable in 14s. See related GI note. Recommended outpatient colonoscopy when medically more stable, perhaps in the next 4-8 weeks. Ongoing medical issues: - Obesity: BMI 41. Suspect COREY as well. Would benefit from outpatient workup. - Diverticulosis: As seen on 24Apr CT pelvis. Code status: Full code Diet: Heart healthy, carb consistent. DVT prophy: Heparin BID PT/OT: Consulted PT/OT Dispo: Pt cannot afford SNF due to insurance. Ongoing PT and OT, encouraged ambulation as much as possible. Right now the plan may be home with his father, but we definitely want the father to see him in his current status to ensure that the father feels this would be reasonably safe. Subjective Sleeping soundly. Nursing notes no problems but he does not really awaken to gentle stimulation. Does not appear in any distress nursing then noted he said something to them about his dad reaching out to [facility]. No other new complaints. Physical Exam Physical Exam: Generally sleeping comfortably breathing okay no distress. HEENT normocephalic atraumatic mucous membranes moist. Breathing is unlabored no accessory muscle use good effort. Left lower extremity shows diffuse chronic changes from prior infections, as well as areas of blistering from before, no acute findings. Results & Data Vital Signs (Past 12 Hours) Vital Signs Temp Pulse Pulse Resp BP Pulse Ox 07/24/18 16:47 36.5 C 76 17 150/102 H 94 07/24/18 11:49 36.6 C 68 66 16 128/64 97 07/24/18 07:35 36.7 C 77 16 120/57 L 96
[2018-07-25] MEDS: LACTOBACILLUS ACIDOPHILUS (FLORANEX) TAB PO SCH ×3 (07:50→16:01)
[2018-07-25] MEDS: NYSTATIN POWDER 15GM BTL EXT SCH ×2 (07:51→20:41)
[2018-07-25] MEDS: CARVEDILOL 12.5 MG TAB PO SCH ×2 (07:51→20:36)
[2018-07-25] MEDS: CLINDAMYCIN HCL 150 MG CAP PO SCH ×3 (07:51→20:42)
[2018-07-25] MEDS: SACUBITRIL-VALSARTAN 24-26 MG TAB PO SCH ×2 (07:51→20:40)
[2018-07-25] MEDS: EUCERIN CR 120 GM JAR EXT SCH ×2 (07:51→20:35)
[2018-07-25] MEDS: cephALEXin 500 MG CAP PO SCH ×3 (07:51→20:41)
[2018-07-25] MEDS: HEPARIN SOD 5,000 UNIT/0.5 ML VIAL SQ SCH ×2 (07:52→20:41)
[2018-07-25] MEDS: INSULIN ASPART 100 UNITS/ML 3 ML PEN SC SCH ×4 (09:12→21:20)
[2018-07-25] MEDS: ACETAMINOPHEN 325 MG TAB PO PRN (14:16)
--- NOTE | 2018-07-25 19:25 | Hospitalist Progress Note ---
Date of Service July 25, 2018 Assessment & Plan (1) Cellulitis of left leg: (1) Cellulitis of groin: 53-year-old male was admitted on 14 July 2018 for erythema and pain extending from his lower abdomen, inguinal region, and down his left leg. Cellulitis of groin and left leg: No clear evidence of Fourniers gangrene or necrotizing fasciitis on imaging. May be due to multiple ulcers vs additional fungal infection. 24Apr started on vancomycin, Zosyn, and topical nystatin. See related surgical and ID notes. 24Apr BCx no growth (final). 28Apr wound culture grew Group C Strep (sensitivities pending). No evidence of osteo on XR of left foot. 29Apr added back clindamycin for antitoxin effect. -On clindamycin 300mg TID to complete day 5/10 -On keflex 500mg TID x 3 weeks (day 4) -Stable for discharge from this standpoint Left lower extremity chronic venous insufficiency: 24Apr left leg arterial Doppler u/s was suggestive of possible arterial occlusion. Vascular surgery consulted, see related notes. No role for surgery at this time. Wound care consulted, applying local dressings. Consider compression stockings to help with edema once weeping improves. Mobility as best as possible would help as well. Continue PT/OT, continue to encourage mobility Elevated troponin, cardiomyopathy: 24Apr TTE noted EF 25-30% and severe LV global hypokinesis (see full report). Coxsackie labs pending. See related cardiology notes. Thought to be long-standing idiopathic cardiomyopathy. Continue Coreg and Entresto. Should have a left heart cath at some point for completeness, but no urgency to this given that he show no acute ischemic symptoms. Polymorphic ventricular tachycardia: Asymptomatic 10 second run. Started on coreg as above. No noted recurrence, outpatient follow-up with cardiology as above. Acute kidney injury: Unknown baseline. Does seem to have settled to her current baseline. Continue to follow creatinine periodically. Hyperglycemia: 24Apr A1c 7.5, new diagnosis of DM. Glucose is adequate control.. Plan to start metformin 500 mg BID at discharge. DM educator involved, appreciate the patient education. - Consider addition of additional medications such as a GLP-1 agonist as well as a moderate-intensity statin at time of discharge as well. Elevated LFTs: Mildly elevated AST & ALT on admit, both resolved. Hypoalbuminemia: Albumin as low as 1.9. Positive hemoccult: On 26Apr. Hb stable in 14s. See related GI note. Osmin mmended outpatient colonoscopy when medically more stable, perhaps in the next 4-8 weeks. Ongoing medical issues: - Obesity: BMI 41. Suspect COREY as well. Would benefit from outpatient workup. - Diverticulosis: As seen on 24Apr CT pelvis. Code status: Full code Diet: Heart healthy, carb consistent. DVT prophy: Heparin BID PT/OT: Consulted PT/OT Dispo: Pt cannot afford SNF due to insurance. Ongoing PT and OT, encouraged ambulation as much as possible. Right now the plan may be home with his father, but we definitely want the father to see him in his current status to ensure that the father feels this would be reasonably safe, at the same time the son notes that his father wants him to go to [employer] and is meeting with [employer] himself this week. Right now he does not appear to be safe at home. Subjective Feeling okay. No acute complaints. He notes that his father is going to try to get him in the [employer]. He does not know when he is meeting with [employer] people. No other acute complaints. Case discussed with nursing. Review of Systems Review of Systems: All systems reviewed & are unremarkable except as noted in HPI & below Physical Exam Physical Exam: In general he is awake and alert pleasant no acute distress. HEENT normocephalic atraumatic mucous membranes moist. Breathing unlabored no accessory muscle use. Left lower extremity very similar to previous, beefy redness in his groin area and multiple areas of blistering that do not show acute erythema or exudate, but do show resolving erythema. Results & Data Vital Signs (Past 12 Hours) Vital Signs Temp Pulse Pulse Resp BP Pulse Ox 07/25/18 15:55 36.9 C 73 18 138/90 98 07/25/18 08:11 36.7 C 72 20 147/92 H 94 07/25/18 07:45 79 155/99 H
[2018-07-26] MEDS: ACETAMINOPHEN 325 MG TAB PO PRN (01:11)
[2018-07-26 06:02] LABS: Creatinine Clr Calc Pharmacy 98.9 ml/min; Est GFR (African American) 71.7; Est GFR (Non-African American) 61.9
[2018-07-26] MEDS: CARVEDILOL 12.5 MG TAB PO SCH ×2 (07:53→20:46)
[2018-07-26] MEDS: CLINDAMYCIN HCL 150 MG CAP PO SCH ×3 (07:53→20:45)
[2018-07-26] MEDS: LACTOBACILLUS ACIDOPHILUS (FLORANEX) TAB PO SCH ×3 (07:53→16:33)
[2018-07-26] MEDS: EUCERIN CR 120 GM JAR EXT SCH ×2 (07:53→20:47)
[2018-07-26] MEDS: SACUBITRIL-VALSARTAN 24-26 MG TAB PO SCH ×2 (07:53→20:46)
[2018-07-26] MEDS: cephALEXin 500 MG CAP PO SCH ×3 (07:54→20:47)
[2018-07-26] MEDS: HEPARIN SOD 5,000 UNIT/0.5 ML VIAL SQ SCH ×2 (07:54→20:45)
[2018-07-26] MEDS: NYSTATIN POWDER 15GM BTL EXT SCH ×2 (07:54→20:47)
[2018-07-26] MEDS: INSULIN ASPART 100 UNITS/ML 3 ML PEN SC SCH ×4 (08:46→20:41)
--- NOTE | 2018-07-26 16:36 | Family Medicine Progress Note ---
Date of Service July 26, 2018 Assessment & Plan (1) Cellulitis of left [age]-year-old male was admitted on 14 July 2018 for erythema and pain extending from his lower abdomen, inguinal region, and down his left leg. #Cellulitis of groin and left leg: -No clear evidence of Fourniers gangrene or necrotizing fasciitis on imaging. May be due to multiple ulcers vs additional fungal infection. 24Apr started on vancomycin, Zosyn, and topical nystatin. See related surgical and ID notes. 24Apr BCx no growth (final). Wound culture grew pansensitive Group C Strep. No evidence of osteo on XR of left foot. 29Apr added back clindamycin for antitoxin effect. -On clindamycin 300mg TID to complete 10 days on 09May. -On keflex 500mg TID to complete 3 weeks on 23May. #Left lower extremity chronic venous insufficiency: -24Apr left leg arterial Doppler u/s was suggestive of possible arterial occlusion. Vascular surgery consulted, see related notes. No role for surgery at this time. Wound care consulted, applying local dressings. Consider compression stockings to help with edema once weeping improves. Mobility as best as possible would help as well. -Continue PT/OT, continue to encourage mobility #Elevated troponin, cardiomyopathy: -24Apr TTE noted EF 25-30% and severe LV global hypokinesis (see full report). Coxsackie labs pending. See related cardiology notes. Thought to be long-standing idiopathic cardiomyopathy. Plan for a left heart cath at some point for completeness, but no urgency to this given that he show no acute ischemic symptoms. -Continue Coreg and Entresto. #Polymorphic ventricular tachycardia: -Asymptomatic 10 second run. Started on coreg as above. No noted recurrence, outpatient follow-up with cardiology as above. #Acute kidney injury: -Unknown baseline. Does seem to have settled to his current baseline. -Continue to follow creatinine periodically. #Hyperglycemia: -24Apr A1c 7.5, new diagnosis of DM. Consider addition of additional medications such as a GLP-1 agonist as well as a moderate-intensity statin at time of discharge as well. -Plan to start metformin 500 mg BID at discharge. DM educator involved, appreciate the patient education. #Hypoalbuminemia: -Albumin as low as 1.9. #Positive hemoccult: -Likely tested due to concern for gross blood on 26Apr. Does not appear to be actively bleeding at this time. Hgb stable without anemia. -Recommend outpatient colonoscopy when medically more stable, perhaps in the next 4-8 weeks. Ongoing medical issues: - Obesity: BMI 41. Suspect COREY as well. Would benefit from outpatient workup. - Diverticulosis: As seen on 24Apr CT pelvis. No acute issues. Code status: Full code Diet: Heart healthy, carb consistent. DVT prophy: Heparin BID PT/OT: Consulted PT/OT Dispo: Pt cannot afford SNF due to insurance. Ongoing PT and OT, encouraged ambulation as much as possible. -Right now the plan may be home with his father. Would be prudent to allow father to see him in his current status to ensure that the father feels this would be reasonably safe, at the same time the son notes that his father wants him to go to [facility] and is meeting with [facility] himself this week. -home health and wound clinic have all been arranged, PCP appt. (2) Cellulitis of groin: (3) Sepsis: (4) Cardiomyopathy: (5) Elevated troponin: (6) Polymorphic ventricular tachycardia: (7) Chronic venous insufficiency: (8) Diabetes mellitus, new onset: (9) Acute kidney injury: (10) Elevated LFTs: (11) Hypoalbuminemia: (12) Obesity: (13) Diverticulosis: Supervising Physician Co-Signing Physician Notes Resident Physician Supervision Note: I independently interviewed and examined the patient and verified the cuenca history and physical, reviewed labs and image studies, discussed the case with the resident Dr. Rajan and agree with the findings and care plan. Subjective Seen and examined at the bedside this AM. Sleeping prior to my arrival. Leg cellulitis is stable. Tolerating PO. Asks for a work note to benja but does not have a fax number. Review of Systems Review of Systems: All systems reviewed & are unremarkable except as noted in HPI & below Physical Exam Physical Exam: Vitals noted as above and within normal limits . GENERAL: Awake, alert to person, place, and time, nontoxic-appearing, in no distress HENT: Normocephalic, atraumatic. Mucus membranes appear moist. EYES: Normal conjunctiva. Sclera non-icteric. EOMI. NECK: Supple. Full range of motion. No JVD RESPIRATORY: Clear to auscultation. Normal work of breathing. CARDIAC: Regular rate, normal rhythm. Extremities warm and well perfused. ABDOMEN: Soft, non-distended. No tenderness to palpation in all four quadrants. No rebound or guarding. No masses. Bowel sounds are normal. LOWER EXTREMITIES: Inspection of calves reveal left lower extremity with patchy diffuse erythema and blistering. 1+ edema in LLE, trace in RLE. NEURO: No focal gross focal motor deficits noted. Sensation in tact. CN II-XII grossly in tact. SKIN: No jaundice noted. Cellulitis as above. PSYCH: Appropriate mood and affect. Cooperative. Exam as done by Kalie Rajan MD, [employer]dra[employer]. Results & Data Vital Signs (Past 12 Hours) Vital Signs Temp Pulse Resp BP Pulse Ox 07/26/18 15:00 36.6 C 77 20 136/93 98 07/26/18 07:21 36.9 C 74 20 124/83 98 Resident Activity Tracking Resident Involvement: Resident Care Provided Care Provided: Adult Hospital Medicine (1) Sepsis Sepsis type: sepsis due to unspecified organism Qualified Code(s): A41.9 - Sepsis, unspecified organism
[2018-07-27] MEDS: INSULIN ASPART 100 UNITS/ML 3 ML PEN SC SCH ×2 (08:24→13:09)
[2018-07-27] MEDS: HEPARIN SOD 5,000 UNIT/0.5 ML VIAL SQ SCH (08:24)
[2018-07-27] MEDS: CLINDAMYCIN HCL 150 MG CAP PO SCH ×2 (08:25→13:09)
[2018-07-27] MEDS: SACUBITRIL-VALSARTAN 24-26 MG TAB PO SCH (08:25)
[2018-07-27] MEDS: CARVEDILOL 12.5 MG TAB PO SCH (08:25)
[2018-07-27] MEDS: cephALEXin 500 MG CAP PO SCH ×2 (08:25→13:09)
[2018-07-27] MEDS: EUCERIN CR 120 GM JAR EXT SCH (08:26)
[2018-07-27] MEDS: LACTOBACILLUS ACIDOPHILUS (FLORANEX) TAB PO SCH ×2 (08:26→11:50)
[2018-07-27] MEDS: NYSTATIN POWDER 15GM BTL EXT SCH (08:26)
[2018-07-27] MEDS: ACETAMINOPHEN 325 MG TAB PO PRN (08:54)
[2018-07-27] MEDS ORDERED: CARVEDILOL 12.5 MG TAB PO ONE (09:30)
--- NOTE | 2018-07-27 10:03 | Discharge Summary ---
Date of Service July 27, 2018 Admission HPI Per Admitting Provider 53 yo male admitted a few days ago for cellulitis of the groin. Appears to have been evaluated by surgery to rule out necrotizing fascitis which was ruled out. He also has a cardiomyopathy for which cardiology has been seeing him and one episode of polymorphic ventricular tachycardia. GI is now being requested to see the patient for a GI Bleed. On speaking with the patient this morning, he reports no hematemesis, no melena, no hematochezia. It appears he has not had regular routine follow-up. No GI history of colon cancer or GI issues that he is aware of. Denies dysphagia, belly pain, nausea, vomiting at this time. Principal Diagnosis severe cellulitis, T2DM, cardiomyopathy, hypertension Discharge Exam Vitals noted and within normal limits. GENERAL: Awake, alert to person, place, and time, nontoxic-appearing, in no distress. HENT: Normocephalic, atraumatic. Mucus membranes appear moist. EYES: Normal conjunctiva. Sclera non-icteric. EOMI. NECK: Supple. Full range of motion. No JVD RESPIRATORY: Clear to auscultation. Normal work of breathing. CARDIAC: Regular rate, normal rhythm. Extremities warm and well perfused. ABDOMEN: Soft, non-distended. No tenderness to palpation in all four quadrants. No rebound or guarding. No masses. Bowel sounds are normal. LOWER EXTREMITIES: Inspection of calves reveal left lower extremity with patchy diffuse erythema and blistering up to level of groin, improving erythema and skin dryness typical for resolving cellulitis. 1+ edema in LLE, trace in RLE. NEURO: No focal gross focal motor deficits noted. Sensation in tact. CN II-XII grossly in tact. SKIN: No jaundice noted. Cellulitis as above. PSYCH: Appropriate mood and affect. Cooperative. Exam as done by Kalie Rajan MD, Medical Billing Assistant. Discharge Data Allergies Allergy/AdvReac Type Severity Reaction Status Date / Time No Known Allergies Allergy Unverified 07/14/18 02:22 Consultations 07/14/18 01:53 ED Decision to Admit Stat 07/14/18 04:43 Consult General Surgery Stat 07/14/18 09:31 Consult Cardiology Routine 07/14/18 17:01 Consult Vascular Surgery Routine 07/15/18 09:21 Consult Infectious Diseases Routine 07/16/18 18:59 Consult Gastroenterology Routine Ordered Studies 07/14/18 00:08 CT pelvis w/IV con only Urgent US venous doppler LE LT Urgent 07/14/18 04:32 CT lower leg LT wo con Urgent 07/14/18 10:53 US arterial duplex LE LT Stat Hospital Course (1) Cellulitis of left le-year-old male was admitted on 14 July 2018 for erythema and pain extending from his lower abdomen, inguinal region, and down his left leg. Pt was treated with IV antibiotics and eventually transitioned to PO antibiotics with plan for prolonged course of clindamycin and keflex as below. This illness uncovered other chronic medical conditions including new diagnosis of diabetes and cardiomyopathy. New medications include betablocker, ARB and metformin with plan for close follow up with PCP, and cardiology. Of note, pt is also due for screening colonoscopy, to be ordered by PCP office. Discharge date: #Cellulitis of groin and left leg: -Per report, symptoms began for several days prior to admission to hospital -- luckily, no clear evidence of Fourniers gangrene or necrotizing fasciitis on imaging, surgery consulted and no indication for surgical intervention at this time. ID consulted and initially begun on broad spectrum abx (vancomycin, Zosyn, and topical nystatin) then transitioned to PO as below. See related surgical and ID notes. -24Apr BCx no growth (final). Wound culture grew pansensitive Group C Strep. No evidence of osteo on XR of left foot. -On clindamycin 300mg TID to complete 10 days on 09May. -On keflex 500mg TID to complete 3 weeks on 23May. #Left lower extremity chronic venous insufficiency: -24Apr left leg arterial Doppler u/s was suggestive of possible arterial occlusion, Vascular surgery consulted but arterial occlusion deemed unlikely, and instead management for chronic venous stasis ensued. -No role for surgery at this time. -Wound care consulted, local dressings. -Consider compression stockings to help with edema once weeping improves. -Discussed that mobility as best as possible would help as well. -PT/OT given here. Plan for home health and wound clinic follow up. #Elevated troponin, cardiomyopathy: -24Apr TTE noted EF 25-30% and severe LV global hypokinesis (see full report). Coxsackie labs pending. See related cardiology notes. Thought to be long- standing idiopathic cardiomyopathy. Plan for a left heart cath at some point for completeness, but no urgency to this given that he show no acute ischemic symptoms. -Continue Coreg. -Entresto tolerated here but due to cost prohibitiveness, changed to losartan on discharge. #Polymorphic ventricular tachycardia: -Asymptomatic 10 second run. Started on coreg as above. No noted recurrence, outpatient follow-up with cardiology as above. #Acute kidney injury: -Unknown baseline. Does seem to have settled to his current baseline. -Continue to follow creatinine periodically. #Hyperglycemia, new diagnosis of T2DM: -24Apr A1c 7.5, new diagnosis of DM. -PCP to Consider addition of additional medications such as a GLP-1 agonist as well as a moderate-intensity statin. -Plan to start metformin 500 mg BID at discharge. -DM educator involved. #Hypoalbuminemia: -Albumin as low as 1.9. #Positive hemoccult, NOT up to date on CRC screenings: -Likely tested due to concern for gross blood on 26Apr. Does not appear to be actively bleeding at this time. Hgb stable without anemia, never requiring any further management. -However: Recommend outpatient colonoscopy when medically more stable, perhaps in the next 4-8 weeks. Ongoing medical issues: - Obesity: BMI 41. Suspect COREY as well. Would benefit from outpatient workup. - Diverticulosis: As seen on 24Apr CT pelvis. No acute issues. DVT prophy: Heparin given here. Discharge planning issues -- SNF cost prohibitive -- plan for home health. To home with his father. Kaitlin Rajan MD (2) Cellulitis of groin: (3) Sepsis: (4) Cardiomyopathy: (5) Elevated troponin: (6) Polymorphic ventricular tachycardia: (7) Chronic venous insufficiency: (8) Diabetes mellitus, new onset: (9) Acute kidney injury: (10) Elevated LFTs: (11) Hypoalbuminemia: (12) Obesity: (13) Diverticulosis: Total Time Total Time Spent Total Time Spent (In Minutes): 30 Discharge Plan Discharge Items Patient Disposition: Home - Home Health Services Reason For Visit: CELLULITIS - LEG, GROIN, GENITALS Discharge Diagnosis: cellulitis, type 2 diabetes mellitus, idiopathic cardiomyopathy, chronic venous insufficiency, blood in stool Condition: Fair Discharge Goals: Decrease discomfort, Diagnostic testing, Improve disease control, Improve function, Increase independence, Improve nutritional status and Prevent disease Activity: Per 'Additional Instructions' section Lifting: Gradually increase as tolerated Bathing: No limitations Sexual Activity: When tolerated Non-emergency contact: Primary Care Provider, Top Coater and Order Processing Manager Call non-emergency contact if: you have any medication questions, your symptoms worsen and your temperature is above 101 Follow-up/Referrals: [facility] [Provider Group] - 07/30/18 8:00 am (Please, follow up at [facility] on ThursdayJuly 30 at 8:00 am. The clinic is located at [address] in [place]. If you need to reschedule the appointment, call the clinic at [phone].) Shawna Bryan CRNP [Primary Care Provider] - 08/02/18 3:30 pm (Please, follow up at [facility] [place] Office with Shawna PORTILLO on ThursdayAugust 02 at 3:30 pm. She will be your new primary care provider. *This office is located at [address] [place] [address] in [place]. If you need to change this appointment, call the office at [phone]. IT IS IMPORTANT TO HAVE THIS APPOINTMENT SO THAT YOU CAN BECOME ESTABLISHED WITH A PRIMARY CARE PROVIDER AND HAVE HOME HEALTH SERVICES) Jesenia Franco PA-C [Physician Human Resource Intern] - 08/19/18 1:00 pm (Please, follow up at [facility] with Jesenia Franco Pa-C on August 19 at 1:00 pm (arrive 12:40 pm). *This office is located in [address] of [facility] this hospital. If you need to change or cancel this appointment, call the office at [phone].) Diet: Carb Consistent or DM2 and Heart Healthy Addtl Provider Instructions: You were admitted due to worsening rash on your entire left leg. This is called cellulitis -- this was treated with antibiotics (keflex, clindamycin) and you will continue this medicine for several more weeks, as this continues to heal. You will also follow up with wound clinic in the meantime and this has been arranged for you, please keep these appointments. You were also found to have diabetes -- this will be treated with a pill called metformin which is to be taken twice a day, but also balanced diet and daily exercise is ultimately the best treatment. You were also found to have changes to your heart wall, likely due to high blood pressure -- this will be treated with a pill called Losartan as well as Carvedilol, to be taken once a day. Your PCP will titrate this as they see fit. You will also be seen by [facility] heart doctors to continue monitoring this to see if there are any blockages in your heart that is causing this issue. You had a small amount of blood in your stool -- you should be seen by your PCP, and they may refer you for a colonoscopy. If you have never had one, you should definitely receive one because it is recommended for prevention of colon cancer in everyone by the age of 50. You also have longstanding too-slow return of blood within your leg veins -- this is called "venous stasis". You were seen by a vascular surgeon to see if there were any issues that needed surgical intervention, and the answer to that right now is "no", but you should work to 1. walk more, every day (aim for 10,000 steps), 2. elevate your legs above the level of the heart at least 2 times/day for 10 minutes at least, and 3. wear compression stockings during the day. If your leg pain/rash becomes worse, you develop a fever (temperature over 101) please alert your home care nurse, or your primary care office. If you have any chest pain or difficulty breathing, please alert your primary care office, or if you are concerned, please come to the ER. If you see blood in your stool, please alert your PCP. If you ever have questions about any of your new diagnoses or medications, do not hesitate to reach out to your case finisher, or primary care office, or heart doctors. Be well A [facility] Prescriptions: New carvedilol 25 mg Tablet 25 mg PO BID 30 Days Qty: 60 RF: 0 clindamycin HCl 150 mg Capsule 300 mg PO TID 3 Days Qty: 18 RF: 0 cephalexin 500 mg Capsule 500 mg PO TID 17 Days Qty: 51 RF: 0 nystatin [Nystop] 100,000 unit/gram Powder 1 applic EXT BID 30 Days Qty: 15 RF: 0 Eucerin Cream 1 applic EXT BID 30 Days Qty: 57 RF: 0 metformin 500 mg tablet extended release 24 hr 500 mg PO BID Qty: 60 RF: 0 losartan 50 mg tablet 50 mg PO DAILY Qty: 30 RF: 0 Stand-Alone Forms: [facility], Work/School Release (Inpt) Discharge Orders: Discharge Order (Routine); Ordered 07/27/18 Ordered By: Nicole Ruggiero Admission Data Admit Date/Time: 07/14/18 03:27 Attending Provider: Nicole Ruggiero Admit Provider: Naldo Reese Primary Care Provider: Shawna Bryan Other Providers: Lan Carney ; Naldo Reese ; Pam Aden ; Lan Hidalgo ; Schuyler Garcia ; Alexia Love ; Pam Guzman ; Leonel Wick Service: Medical Other Interventions: Discharge Summary Assessment (RN) Last Done: 07/27/18 16:37 Pending Studies at Discharge: No DC Date/Time DO NOT enter until pt leaves facility: 07/27/18 17:30 Supervising Physician Co-Signing Physician Notes Resident Physician Supervision Note: I independently interviewed and examined the patient and verified the cuenca history and physical, reviewed labs and image studies, discussed the case with the resident Dr. Rajan and agree with the findings and care plan. Time spent in discharge 35 min Resident Activity Tracking Resident Involvement: Resident Care Provided Care Provided: Adult Hospital Medicine
[2018-07-27] MEDS ORDERED: CARVEDILOL 25 MG TAB PO SCH (21:00)
[2018-07-29 17:41] LABS: Coxsackie A10 <1:8; Coxsackie A16 <1:8; Coxsackie A2 <1:8; Coxsackie A4 <1:8; Coxsackie A7 <1:8; Coxsackie A9 <1:8; Coxsackie B1 1:16 (<1:8); Coxsackie B3 <1:8 (<1:8); Coxsackie B4 <1:8 (<1:8); Coxsackie B5 1:16 (<1:8); Coxsackie B6 1:16 (<1:8)
== END 2018-07-27 17:30 | disposition home health service (06) | DRG 872 ==
LOC: ED 23:38 → SUATTDRO 07-14 03:27 → 2S 07-14 03:27 → 4E 07-19 17:59
DX: E66.9 Obesity, unspecified; L03.314 Cellulitis of groin; I42.9 Cardiomyopathy, unspecified; I25.10 Atherosclerotic heart disease of native coronary artery without angina pectoris; E88.09 Other disorders of plasma-protein metabolism, not elsewhere classified; E87.2 Acidosis; L03.116 Cellulitis of left lower limb; N17.9 Acute kidney failure, unspecified; R79.89 Other specified abnormal findings of blood chemistry; K57.90 Diverticulosis of intestine, part unspecified, without perforation or abscess without bleeding; I47.2 Ventricular tachycardia; E11.9 Type 2 diabetes mellitus without complications; A41.9 Sepsis, unspecified organism; I87.2 Venous insufficiency (chronic) (peripheral)